=== PATIENT | male | born 1970 | race Caucasian/White ===

== ENCOUNTER 2016-09-08 13:17 | Emergency (ER) | payer MEDICAID ==
[2016-09-08] MEDS ORDERED: ONDANSETRON DISINTEGRATING 4 MG TAB ONE (14:19)
[2016-09-08] MEDS ORDERED: ONDANSETRON DISINTEGRATING 4 MG TAB PO ONE (14:28)
[2016-09-08 14:32] LABS: % IMMATURE GRANULYOCYTES 0.5 % (0.0-1.1); ABSOLUTE IMMATURE GRANULOCYTES 0.05 10^3/uL (0.00-0.10); ADD DIFF? NO; ADD MORPH? NO; ADD SCAN? NO; ATYPICAL LYMPHOCYTE FLAG 20 (0-99); FRAGMENT RBC FLAG 0 (0-99); HEMATOCRIT 41.4 % (40.0-51.0); HEMOGLOBIN 14.6 g/dL (13.7-17.5); LEFT SHIFT FLG 0 (0-99); LIPEMIA HEMOLYSIS FLAG 90 (0-99); MEAN CELL HEMOGLOBIN 31.7 pg (27.9-34.1); MEAN CELL HEMOGLOBIN CONCENTR. 35.3 g/dL (32.4-36.7); MEAN PLATELET VOLUME 9.1 fL (8.7-11.7); PLATELET CLUMPS FLAG 0 (0-99); PLATELET COUNT 343 10^3/uL (150-400); RED CELL DISTRIBUTION WIDTH 13.1 % (11.5-15.2)
[2016-09-08 14:38] LABS: ANION GAP 14 mEq/L (8-16); CALCIUM 9.6 mg/dL (8.5-10.4); CARBON DIOXIDE 23 mEq/l (22-31); CHLORIDE 102 mEq/L (97-110); CREATININE 0.6 mg/dL (0.7-1.3); GLOMERULAR FILTRATION RATE > 60; GLUCOSE 176 mg/dL (70-100); POTASSIUM 4.3 mEq/L (3.5-5.2); SODIUM 139 mEq/L (134-144)
[2016-09-08 14:52] LABS: COLOR PALE YELLOW; LEUKOCYTE ESTERASE,URINE NEGATIVE (NEGATIVE); NITRITE,URINE NEGATIVE (NEGATIVE)
[2016-09-08] MEDS ORDERED: ONDANSETRON 4 MG/2 ML VIAL ONE (15:01)
[2016-09-08] MEDS ORDERED: KETOROLAC 30 MG/1 ML SDV ONE (16:06)
--- NOTE | 2016-09-08 16:37 | DX ---
PA and Lateral Chest September 08, 2016 History: Cough in a 46-year-old male with a history of pneumonia. Findings: The heart and mediastinal contours are normal. Pulmonary vascularity is normal. There is c entral peribronchial thickening. Left-sided alveolar opacities noted on the previous chest x-ray March 02, 2016 have resolved. There are no alveolar opacities seen to suggest pneumonia. Impression: Findings consistent with airways disease are noted with no superimposed pneumonia identi fied.
--- NOTE | 2016-09-08 16:48 | EDPHY ---
Mental Health General Previous Psychiatric History: previous inpatient psychiatric admission, depression, anxiety Smoking Status: Former smoker Time Patient Placed on M1 Hold: 12:30 Time Medically Cleared for Psychiatric Evaluation: 16:00 Time of Transfer of Care: 18:[address]:: Mellisa Course: patient remained stable over course of my shift, no additional interventions, awaiting acceptance to inpatient bed Narrative: CHIEF COMPLAINT: M1 hold, suicidal ideation HISTORY OF PRESENT ILLNESS: 46-year-old male presents emergency department on an M1 hold for suicidal ideations. Patient reports he attempted to overdose on insulin last night and will do it again if he does not get help. Patient has already had a mental health evaluation from [facility] and he is here for a medical clearance. Patient reports he was recently treated at [facility] for a pneumonia, finished his antibiotics over 1 month ago. He reports a mild cough that started 1 week ago, he denies fevers, chills. Patient reports intermittent suicidal thoughts for the past several months with thoughts about overdosing on his insulin. He has a history of depression and anxiety. [facility] is [facility], recently had a break-up of a relationship. He denies drug use, denies auditory or visual hallucinations and denies homicidal ideations. REVIEW OF SYSTEMS: A comprehensive 10 point review of systems is otherwise negative aside from elements mentioned in the history of present illness. Physical Exam Gen: Alert and Oriented, NAD HEENT: PERRL, moist mucous membranes NECK: no meningismus CV: regular rate and regular rhythm PULM: Rhonchi right lower lobe ABDOMEN: soft, non tender to palpation, BS present BACK: No CVA tenderness NEURO: Neurologically grossly intact EXTREMITIES: normal appearing SKIN: no rash or break in skin on exposed skin PSYCH: Reports suicidal ideations, denies homicidal ideations, auditory and visual hallucinations. (Christina Aviles) 700: The patient is signed out to me at change of shift by Dr. Sellers. Patient is stable at this time. 745: The patient is given his typical daytime medications: Protonix 40 mg orally, clonidine 0.2 mg orally and Adderall 20 mg 1200: Patient was given is "noon" medications including Adderall and clonidine. 1500: Patient is signed out to Dr. Pak at change of shift. (Terrie Rodriguez) Medical Decision Making: Patient with normal room air oxygen saturations, he is afebrile, due to the rhonchi in his right lower lobe and recent cough a chest x-ray was obtained showing no evidence of pneumonia. Chest x-ray independently reviewed by me- Impression: Findings consistent with airways disease are noted with no superimposed pneumonia identified. Dictated By: Puma Delgado MD 6pm- report passed on to Dr. Pak at the end of my shift pending placement. ( Christina Aviles) 10:45pm--blood sugar elevated. Insulin NPH 15u SQ and Insulin Reg 4u SQ given. Pt did not take his usual insulin this evening. I ordered bid dosing of his usual insulin: NPH 10u SQ bid. 11:00 p.m.-signed over to Dr. Sellers at shift change. (Louisa Pak) 6:50 a.m.- The patient has been stable during my shift. He did have several glucose is checked, initially 316, for this he was given 4 units of regular insulin repeat blood sugars have been 165 and 139. He is currently awaiting placement. (Jaycee Sellers) - Objective Vital Signs: Initial Vital Signs Temperature (C) 36.6 C 09/08/16 13:36 Heart Rate 94 09/08/16 13:36 Respiratory Rate 14 09/08/16 13:36 Blood Pressure 150/94 H 09/08/16 13:36 O2 Sat (%) 92 09/08/16 13:36 O2 Delivery Mode Room Air Allergies/Adverse Reactions: Sulfa (Sulfonamide Antibiotics) [Sulfa(Sulfonamide Antibiotics)] Allergy (Severe , Verified 09/08/16 13:35) Anaphylaxis Home Medications: Medication Instructions Recorded Ibuprofen [Motrin (*)] 800 mg PO DAILY PRN 03/02/16 Zolpidem Tartrate [Ambien 10 mg] 10 mg PO HS PRN 03/02/16 Acetaminophen [Tylenol 325mg (*)] 650 mg PO Q4 PRN #0 tab 03/07/16 LORazepam [Ativan (*)] 2 mg PO DAILY PRN #30 tab 03/07/16 NPH, HUMAN INSULIN ISOPHANE 10 unit SQ BID #60 dose 03/07/16 [NOVOLIN N] Pantoprazole Sodium [Protonix 40mg 40 mg PO BID #60 tab 03/07/16 (*)] clonIDINE [Catapres (*)] 0.2 mg PO TID #90 tab 03/07/16 Amphet Asp and D/Amphet [Adderall 20 mg PO BID 09/08/16 20 mg (*)] oxyCODONE IR [Oxycodone Ir (*)] 20 mg PO Q8H PRN 09/08/16 Medications Given: Discontinued Medications Clonidine (Catapres) 0.2 mg PO EDNOW ONE Stop: 09/08/16 22:19 Last Admin: 09/08/16 22:25 Dose: 0.2 mg Clonidine (Catapres) 0.2 mg PO EDNOW ONE Stop: 09/09/16 07:50 Last Admin: 09/09/16 08:10 Dose: 0.2 mg Clonidine (Catapres) 0.2 mg PO EDNOW ONE Stop: 09/09/16 12:11 Last Admin: 09/09/16 12:43 Dose: 0.2 mg Guaifenesin/Dextromethorphan (Robitussin Dm Oral Liquid) 10 ml PO EDNOW ONE Stop: 09/08/16 20:02 Last Admin: 09/08/16 20:15 Dose: 10 ml Ibuprofen (Motrin) 600 mg PO EDNOW ONE Stop: 09/09/16 06:17 Last Admin: 09/09/16 06:21 Dose: 600 mg Insulin Human NPH (Humulin N Syringe) 15 units SC EDNOW ONE Stop: 09/08/16 22:44 Last Admin: 09/08/16 23:08 Dose: 15 units Insulin Human Regular (Humulin R) 4 unit SC EDNOW ONE Stop: 09/08/16 22:45 Last Admin: 09/08/16 23:08 Dose: 4 units Insulin Human Regular (Humulin R) 4 unit SC EDNOW ONE Stop: 09/09/16 00:46 Last Admin: 09/09/16 00:56 Dose: 4 units Ipratropium Hope (Atrovent Neb) 0.5 mg IH EDNOW ONE Stop: 09/08/16 22:13 Last Admin: 09/08/16 22:24 Dose: 0.5 mg Ipratropium Hope (Atrovent Neb) 0.5 mg IH EDNOW ONE Stop: 09/09/16 12:11 Last Admin: 09/09/16 12:26 Dose: 0.5 mg Ketorolac Tromethamine (Toradol) 15 mg IVP EDNOW ONE Stop: 09/08/16 17:03 Last Admin: 09/08/16 17:03 Dose: 15 mg Lorazepam (Ativan) 2 mg PO EDNOW ONE Stop: 09/08/16 18:43 Last Admin: 09/08/16 18:57 Dose: 2 mg Ondansetron HCl (Zofran Odt) 4 mg PO EDNOW ONE Stop: 09/08/16 14:29 Last Admin: 09/08/16 14:29 Dose: 4 mg Oxycodone HCl (Oxycodone Ir) 20 mg PO EDNOW ONE Stop: 09/08/16 21:26 Last Admin: 09/08/16 21:33 Dose: 20 mg Oxycodone HCl (Oxycodone Ir) 20 mg PO EDNOW ONE Stop: 09/09/16 03:15 Last Admin: 09/09/16 03:28 Dose: 20 mg Pantoprazole Sodium (Protonix) 40 mg PO EDNOW ONE Stop: 09/09/16 07:52 Last Admin: 09/09/16 08:10 Dose: 40 mg Laboratory Results: Laboratory Results 09/08/16 13:36 09/08/16 13:36 09/09/16 09/09/16 12:06 06:39 POC Glucose 108 H mg/dL 139 H mg/dL (70-100) (70-100) Point of Care Results: 09/09/16 09/09/16 06:39 12:06 POC Glucose 139 H 108 H Departure - Departure Disposition: Acute Care Hospital [facility] Clinical Impression: Suicidal ideation Condition: Fair Referrals: NONE *PRIMARY CARE P,. [Primary Care Provider] - As per Instructions
[2016-09-08] MEDS ORDERED: KETOROLAC 15 MG/1 ML SDV IVP ONE (17:02)
[2016-09-08] MEDS ORDERED: LORazepam 1 MG TAB ONE (18:36)
[2016-09-08] MEDS ORDERED: LORazepam 1 MG TAB PO ONE (18:42)
[2016-09-08] MEDS ORDERED: GUAIFENESIN/DM 10 ML UDCUP PO ONE (20:01)
[2016-09-08] MEDS ORDERED: oxyCODONE IR 5 MG TAB PO ONE (21:25)
[2016-09-08] MEDS ORDERED: IPRATROPIUM BROMIDE 0.5 MG/2.5 ML DEYVIAL IH ONE (22:12)
[2016-09-08] MEDS ORDERED: INSULIN NPH HUMAN 100 UNITS/ML SYRINGE SC ONE (22:43)
[2016-09-08] MEDS ORDERED: INSULIN REGULAR HUMAN 100 UNIT/ML SC ONE ×2 (22:44)
[2016-09-09] MEDS ORDERED: INSULIN REGULAR HUMAN 100 UNIT/ML SC ONE ×2 (00:45→18:00)
[2016-09-09] MEDS ORDERED: oxyCODONE IR 5 MG TAB PO ONE ×2 (03:14→17:38)
[2016-09-09] MEDS ORDERED: oxyCODONE IR 5 MG TAB ONE ×2 (03:25)
[2016-09-09] MEDS ORDERED: IBUPROFEN 600 MG TAB PO ONE (06:16)
[2016-09-09] MEDS ORDERED: PANTOPRAZOLE SODIUM 40 MG TAB PO ONE (07:51)
[2016-09-09] MEDS: INSULIN NPH HUMAN 100 UNITS/ML SYRINGE SC SCH ×2 (08:10→18:30)
[2016-09-09] MEDS ORDERED: ADDERALL 20 MG TAB PO SCH ×2 (09:00→12:30)
[2016-09-09] MEDS ORDERED: IPRATROPIUM BROMIDE 0.5 MG/2.5 ML DEYVIAL IH ONE (12:10)
[2016-09-09] MEDS ORDERED: INSULIN NPH HUMAN 100 UNITS/ML SYRINGE SC SCH (21:00)
[2016-09-09] MEDS ORDERED: LORazepam 1 MG TAB PO ONE (22:05)
[2016-09-09] MEDS ORDERED: INSULIN NPH HUMAN 100 UNITS/ML SYRINGE SC ONE ×2 (22:36→22:45)
[2016-09-10] MEDS ORDERED: PANTOPRAZOLE SODIUM 40 MG TAB PO ONE (02:33)
[2016-09-10] MEDS ORDERED: FAMOTIDINE 20 MG TAB ONE (02:37)
[2016-09-10] MEDS ORDERED: ACETAMINOPHEN 500 MG TAB ONE (02:44)
[2016-09-10] MEDS ORDERED: ACETAMINOPHEN 500 MG TAB PO ONE (02:52)
[2016-09-10] MEDS ORDERED: FAMOTIDINE 20 MG TAB PO ONE (02:52)
[2016-09-10 02:56] VITALS: BP 119/73; PULSE 115; RESP 20; TEMP 99.7; O2SAT 91
== END 2016-09-10 02:55 | disposition short-term general hospital (02) ==
LOC: EDUNIT#
DX: R45.851 Suicidal ideations (principal); E11.9 Type 2 diabetes mellitus without complications; Z87.891 Personal history of nicotine dependence; Z59.0 Homelessness
CPT/HCPCS: 80305; 82947-QW; 96374; J1815; J1885; J2405

== ENCOUNTER 2016-10-04 15:33 | Emergency (ER) | payer MEDICAID ==
--- NOTE | 2016-10-04 15:49 | EDPHY ---
H & P Stated Complaint: Difficulty breathing hx PNA HPI/ROS: CHIEF COMPLAINT: Cough, nausea. HISTORY OF PRESENT ILLNESS: The patient is a 46-year-old male with a history of diabetes and who presents with non-productive cough and nausea for the past few days. He reports having had pneumonia all of last year and this feels similar. He was hospitalized September of 2015 and diagnosed with pneumonia. He was hospitalized again with lung abscess/empyema and treated for MRSA. He underwent a VATS procedure for drainage of the lung abscess. His current illness began with pleuritic chest pain, dry cough, racing heart rate, and nausea. He is not currently experiencing pleuritic chest pain. He described tussive emesis. He feels slightly short of breath. He also reports that he has been having difficulty keeping his blood sugar regulated. He denies diarrhea , chills, abdominal pain, sore throat, or other complaints. He did not have a flu shot this year. REVIEW OF SYSTEMS: A ten point review of systems was performed and is negative with the exception of the items mentioned in the HPI. Source: Patient Exam Limitations: No limitations - Personal History Current Tetanus/Diphtheria Vaccine: Yes Current Tetanus Diphtheria and Acellular Pertussis (TDAP): Yes Tetanus Vaccine Date: 2013 - Medical/Surgical History Hx Asthma: No Hx Chronic Respiratory Disease: No Hx Diabetes: Yes Hx Cardiac Disease: No Hx Renal Disease: No Hx Cirrhosis: No Hx Alcoholism: No Hx HIV/AIDS: No Hx Splenectomy or Spleen Trauma: No Other PMH: 1. DIABETES. 2. KIDNEY STONES. 3. GERD. 4. PNA WITH MRSA EMPYEMA. 5. 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 Lives with a roommate. - Physical Exam Exam: General Appearance: Alert. Vital signs reviewed. BP 154/107. HR 110. Pulse ox 94% on room air. Eyes: Pupils equal and round, no conjunctival injection, no discharge. Anicteric. ENT, Mouth: Mucous membranes are moist, no oropharyngeal erythema or edema. Neck: No lymphadenopathy, supple. Respiratory: Faint expiratory wheezes in all lung field. No rales or rhonchi. Good air exchange. No tachypnea. Cardiovascular: Tachycardic. Thorax: No crepitus. Gastrointestinal: Abdomen is soft and nontender, no masses or organomegaly, bowel sounds normal. Skin: Warm and dry, no rashes on exposed skin, normal color. Back: Nontender to palpation over the thoracolumbar spine. No CVAT. Extremities: No lower extremity edema, no calf tenderness or swelling. Neurological: Alert and oriented. Moving all four extremities easily and equally. Psychiatric: Normal affect. Constitutional: Initial Vital Signs Temperature (C) 36.9 C 10/04/16 15:38 Heart Rate 110 H 10/04/16 15:38 Respiratory Rate 18 10/04/16 15:38 Blood Pressure 154/107 H 10/04/16 15:38 O2 Sat (%) 94 10/04/16 15:38 O2 Delivery Mode Room Air Allergies/Adverse Reactions: Sulfa (Sulfonamide Antibiotics) [Sulfa(Sulfonamide Antibiotics)] Allergy (Severe , Verified 10/04/16 15:38) Anaphylaxis Home Medications: Medication Instructions Recorded Ibuprofen [Motrin (*)] 800 mg PO DAILY PRN 03/02/16 Zolpidem Tartrate [Ambien 10 mg] 10 mg PO HS PRN 03/02/16 Acetaminophen [Tylenol 325mg (*)] 650 mg PO Q4 PRN #0 tab 03/07/16 LORazepam [Ativan (*)] 2 mg PO DAILY PRN #30 tab 03/07/16 NPH, HUMAN INSULIN ISOPHANE 10 unit SQ BID #60 dose 03/07/16 [NOVOLIN N] Pantoprazole Sodium [Protonix 40mg 40 mg PO BID #60 tab 03/07/16 (*)] clonIDINE [Catapres (*)] 0.2 mg PO TID #90 tab 03/07/16 Amphet Asp and D/Amphet [Adderall 20 mg PO BID 09/08/16 20 mg (*)] oxyCODONE IR [Oxycodone Ir (*)] 20 mg PO Q8H PRN 09/08/16 oxyCODONE/APAP 5/325 [Percocet 1 - 2 tab PO Q4H PRN #20 tab 10/04/16 5/325 (RX)] Medical Decision Making - Diagnostics Imaging: Chest x-ray was obtained. I viewed the images myself on the PACS system. The radiologist interpretation per Dr. Rios, is: chronic or recurrent airways disease. No pneumonia. I discussed the x-ray findings with the patient. ED Course/Re-evaluation: An IV was established and labs ordered. Chest x-ray ordered. He does not meet criteria for sepsis. His tachycardia resolved while he was in the emergency department. I do not suspect pulmonary embolism. He is not experiencing pleuritic chest pain. On reexamination he continues with good air exchange and an occasional expiratory wheeze. He has inhaled medications that he uses regularly and will continue to do so. 1806: Reassessed patient. We discussed the results of chest x-ray and laboratory work. He is reassured that we do not see evidence of pneumonia or lung abscess. His main concern is for cough, which is disrupting his sleep. He is not febrile or hypoxic. I answered all of his questions. He will go home with Percocet to combine with Robitussin for the cough (he has used this in the past for cough, successfully). He was given return precautions prior to discharge. He will follow up with his primary care physician. He is noted to be hypertensive while in the emergency department. He will have his blood pressure checked by his primary care doctor. Differential Diagnosis: Shortness of breath including but not limited to pulmonary infectious process, COPD, asthma, pulmonary embolus and congestive heart failure. - Data Points Laboratory Results: Laboratory Results 10/04/16 16:31 10/04/16 16:31 Medications Given: Discontinued Medications Hydromorphone HCl (Dilaudid) 0.5 mg IVP EDNOW ONE Stop: 10/04/16 16:51 Last Admin: 10/04/16 16:58 Dose: 0.5 mg Ondansetron HCl (Zofran) 4 mg IVP EDNOW ONE Stop: 10/04/16 16:51 Last Admin: 10/04/16 16:58 Dose: 4 mg Departure - Departure Disposition: Home, Routine, Self-Care Clinical Impression: Viral syndrome Condition: Good Instructions: Oxycodone/Acetaminophen (By mouth), Viral Syndrome (ED) Additional Instructions: Drink plenty of fluids and be sure to get rest. Take Percocet as prescribed when needed for pain and cough. Use over the counter Robitussin for cough. Follow up with your primary care provider in the next 1-2 days for reevaluation. Return to the emergency department if you experience serious worsening of condition. Referrals: [facility] [Provider Group] - As per Instructions Prescriptions: oxyCODONE/APAP 5/325 [Percocet 5/325 (RX)] 1 - 2 tab PO Q4H PRN #20 tab PRN Reason: Pain, Severe Report Scribed for: Janet Smith Report Scribed by: Albert Galvin Date of Report: 10/04/16 Time of Report: 16:04 Physician Review and Approval Statement: 10/04/16 15:49 Portions of this note were transcribed by the medical office assistant. I, Dr. Janet Smith, personally performed the history, physical exam, and medical decision- making; and confirmed the accuracy of the information in the transcribed note.
[2016-10-04] MEDS ORDERED: HYDROmorphONE/DILAUDID 1 MG/ML SYR ONE (16:47)
[2016-10-04] MEDS ORDERED: ONDANSETRON 4 MG/2 ML VIAL ONE (16:48)
[2016-10-04] MEDS ORDERED: ONDANSETRON 4 MG/2 ML VIAL IVP ONE (16:50)
[2016-10-04] MEDS ORDERED: HYDROmorphONE/DILAUDID 1 MG/ML SYR IVP ONE (16:50)
[2016-10-04 16:57] LABS: % IMMATURE GRANULYOCYTES 0.1 % (0.0-1.1); ABSOLUTE IMMATURE GRANULOCYTES 0.01 10^3/uL (0.00-0.10); ADD DIFF? NO; ADD MORPH? NO; ADD SCAN? NO; ATYPICAL LYMPHOCYTE FLAG 20 (0-99); FRAGMENT RBC FLAG 0 (0-99); HEMATOCRIT 40.9 % (40.0-51.0); HEMOGLOBIN 14.3 g/dL (13.7-17.5); LEFT SHIFT FLG 0 (0-99); LIPEMIA HEMOLYSIS FLAG 90 (0-99); MEAN CELL HEMOGLOBIN 31.4 pg (27.9-34.1); MEAN CELL VOLUME 89.7 fL (81.5-99.8); MEAN PLATELET VOLUME 8.9 fL (8.7-11.7); PLATELET CLUMPS FLAG 0 (0-99); PLATELET COUNT 292 10^3/uL (150-400); RED BLOOD CELL COUNT 4.56 10^6/uL (4.40-6.38); RED CELL DISTRIBUTION WIDTH 12.8 % (11.5-15.2)
[2016-10-04 17:16] LABS: ANION GAP 12 mEq/L (8-16); CALCIUM 9.1 mg/dL (8.5-10.4); CARBON DIOXIDE 32 mEq/l (22-31); CHLORIDE 95 mEq/L (97-110); CREATININE 0.9 mg/dL (0.7-1.3); GLOMERULAR FILTRATION RATE > 60; GLUCOSE 188 mg/dL (70-100); SODIUM 139 mEq/L (134-144)
--- NOTE | 2016-10-04 17:20 | DX ---
Chest, PA and Lateral History: Dyspnea Comparison: September 08, 2016 Findings: There is chronic or recurrent bronchial wall thickening. There is no focal infiltrate, cons olidation or pleural effusion. There is no mass or adenopathy. There is no pneumothorax or pneumomedi astinum. There is stable mild compressions in the low thoracic spine. No new compressions have develo ped. Heart size and pulmonary vascularity are normal. Impression: Chronic or recurrent airways disease. No pneumonia.
[2016-10-04 18:40] VITALS: BP 164/101; PULSE 78; RESP 16; TEMP 98.8; O2SAT 94
== END 2016-10-04 18:40 | disposition home or self-care (01) ==
DX: B34.9 Viral infection, unspecified (principal); E11.9 Type 2 diabetes mellitus without complications; Z87.891 Personal history of nicotine dependence; Z79.4 Long term (current) use of insulin
CPT/HCPCS: 96374; J1170; J2405

== ENCOUNTER 2016-10-05 15:44 | Emergency (ER) | payer MEDICAID ==
--- NOTE | 2016-10-05 16:12 | EDPHY ---
H & P Stated Complaint: pneumonia r/o Time Seen by Provider: 10/05/16 15:53 HPI/ROS: CHIEF COMPLAINT: low oxygen saturations HISTORY OF PRESENT ILLNESS: 46-year-old male presents to the emergency department by ambulance from his psychiatrist office after his triage nurse got a oxygen saturation in the high 80s. Patient has a history recurrent pneumonias , MRSA empyema with a VATS procedure last year. He was seen yesterday in the emergency department for a cough that he has had for 2 weeks. This showed no sign of pneumonia. Patient reports he has had a cough for the past 2 weeks that is not getting worse. He denies fevers. No nasal congestion, no sore throat or ear pain. Patient denies chest pain or shortness of breath. On arrival by EMS he has oxygen saturations of 90% on room air, he is hypertensive with a blood pressure of 170/110 with a heart rate of 107. Patient reports feeling very anxious. He states this triage nurse scared him and he is worried about his oxygen saturations. REVIEW OF SYSTEMS: A comprehensive 10 point review of systems is otherwise negative aside from elements mentioned in the history of present illness. Source: Patient, EMS Exam Limitations: No limitations - Personal History Current Tetanus/Diphtheria Vaccine: Yes Current Tetanus Diphtheria and Acellular Pertussis (TDAP): Yes Tetanus Vaccine Date: 2013 - Medical/Surgical History Hx Asthma: No Hx Chronic Respiratory Disease: No Hx Diabetes: Yes Hx Cardiac Disease: No Hx Renal Disease: No Hx Cirrhosis: No Hx Alcoholism: No Hx HIV/AIDS: No Hx Splenectomy or Spleen Trauma: No Other PMH: PMH: DIABETES,KIDNEY STONES, GERD, PNA WITH MRSA, EMPYEMA - Social History Smoking Status: Former smoker - Physical Exam Exam: Physical Exam Gen: Alert and Oriented, anxious HEENT: PERRL, moist mucous membranes, right TM normal, left TM with scarring, no erythema, bilateral nasal turbinates normal NECK: no meningismus CV: Tachycardic rate and regular rhythm PULM: CTAB, no wheezes ABDOMEN: soft, non tender to palpation, BS present BACK: No CVA tenderness NEURO: Neurologically grossly intact EXTREMITIES: normal appearing SKIN: no rash or break in skin on exposed skin PSYCH: answers questions appropriately. Constitutional: Initial Vital Signs Temperature (C) 37.1 C 10/05/16 15:53 Heart Rate 109 H 10/05/16 15:53 Respiratory Rate 18 10/05/16 15:53 Blood Pressure 179/119 H 10/05/16 15:53 O2 Sat (%) 90 L 10/05/16 15:53 O2 Delivery Mode Room Air O2 (L/minute) 2 Allergies/Adverse Reactions: Sulfa (Sulfonamide Antibiotics) [Sulfa(Sulfonamide Antibiotics)] Allergy (Severe , Verified 10/04/16 15:38) Anaphylaxis Home Medications: Medication Instructions Recorded Ibuprofen [Motrin (*)] 800 mg PO DAILY PRN 03/02/16 Zolpidem Tartrate [Ambien 10 mg] 10 mg PO HS PRN 03/02/16 Acetaminophen [Tylenol 325mg (*)] 650 mg PO Q4 PRN #0 tab 03/07/16 LORazepam [Ativan (*)] 2 mg PO DAILY PRN #30 tab 03/07/16 NPH, HUMAN INSULIN ISOPHANE 10 unit SQ BID #60 dose 03/07/16 [NOVOLIN N] Pantoprazole Sodium [Protonix 40mg 40 mg PO BID #60 tab 03/07/16 (*)] clonIDINE [Catapres (*)] 0.2 mg PO TID #90 tab 03/07/16 Amphet Asp and D/Amphet [Adderall 20 mg PO BID 09/08/16 20 mg (*)] oxyCODONE IR [Oxycodone Ir (*)] 20 mg PO Q8H PRN 09/08/16 oxyCODONE/APAP 5/325 [Percocet 1 - 2 tab PO Q4H PRN #20 tab 10/04/16 5/325 (RX)] Medical Decision Making - Diagnostics Imaging: Chest x-ray independently reviewed by me- Impression: Left basilar atelectasis versus early pneumonia. Dictated By: Maciej Hudson MD ED Course/Re-evaluation: 46-year-old male presents by ambulance for low oxygen saturation reading at his psychiatrist's office. On arrival he is nontoxic appearing, room air oxygen saturations between 90 and 94%, lungs are clear to auscultation. Chest x-ray obtained which is unchanged from yesterday, no evidence of pneumonia. Patient is afebrile. CBC is unremarkable, chemistry panel normal, D-dimer negative. Patient will be discharged home. I have recommended saline nasal rinses, steam showers, increased fluids, rest. He agrees to follow up with his primary care doctor at [place] on Saturday for re-evaluation. Patient is aware of his elevated blood pressure readings in the emergency department. He has no chest pain, no headaches or blurred vision, he was given 1 mg of lorazepam in the ER orally for his anxiety. This improved his blood pressure. He is given strict return precautions for difficulty breathing, chest pain, any other questions or concerns. Differential Diagnosis: Diagnosis considered but not limited to pneumonia, bronchitis, URI, pulmonary embolism - Data Points Laboratory Results: Laboratory Results 10/05/16 15:46 10/05/16 15:46 10/05/16 15:46 WBC 8.25 10^3/uL (3.80-9.50) RBC 4.49 10^6/uL (4.40-6.38) Hgb 14.0 g/dL (13.7-17.5) Hct 41.0 % (40.0-51.0) MCV 91.3 fL (81.5-99.8) MCH 31.2 pg (27.9-34.1) MCHC 34.1 g/dL (32.4-36.7) RDW 13.2 % (11.5-15.2) Plt Count 305 10^3/uL (150-400) MPV 9.1 fL (8.7-11.7) Neut % (Auto) 45.5 % (39.3-74.2) Lymph % (Auto) 41.8 % (15.0-45.0) Allen % (Auto) 7.2 % (4.5-13.0) Eos % (Auto) 4.7 % (0.6-7.6) Baso % (Auto) 0.7 % (0.3-1.7) Nucleat RBC Rel Count 0.0 % (0.0-0.2) Absolute Neuts (auto) 3.75 10^3/uL (1.70-6.50) Absolute Lymphs (auto) 3.45 H 10^3/uL (1.00-3.00) Absolute Monos (auto) 0.59 10^3/uL (0.30-0.80) Absolute Eos (auto) 0.39 10^3/uL (0.03-0.40) Absolute Basos (auto) 0.06 10^3/uL (0.02-0.10) Absolute Nucleated RBC 0.00 10^3/uL (0-0.01) Immature Gran % 0.1 % (0.0-1.1) Immature Gran # 0.01 10^3/uL (0.00-0.10) D-Dimer < 0.27 ug/mLFEU (0.00-0.50) Sodium 140 mEq/L (134-144) Potassium 3.7 mEq/L (3.5-5.2) Chloride 92 L mEq/L (97-110) Carbon Dioxide 36 H mEq/l (22-31) Anion Gap 12 mEq/L (8-16) BUN 16 mg/dL (7-23) Creatinine 0.7 mg/dL (0.7-1.3) Estimated GFR > 60 Glucose 156 H mg/dL (70-100) Calcium 9.2 mg/dL (8.5-10.4) Medications Given: Discontinued Medications Lorazepam (Ativan) 1 mg PO EDNOW ONE Stop: 10/05/16 17:30 Last Admin: 10/05/16 17:37 Dose: 1 mg Departure - Departure Disposition: Home, Routine, Self-Care Clinical Impression: Cough, Elevated blood pressure reading, Anxiety Condition: Good Instructions: Acute Cough (ED), Anxiety (ED) Additional Instructions: Tylenol and or ibuprofen as needed for sore throat. Saline nasal rinses, hot steam showers, drink plenty of fluids, rest. Follow-up with your primary care doctor on Saturday for re-evaluation. Continue your medications as prescribed. Return to the emergency department for any worsening symptoms, shortness of breath, chest pain, any new questions or concerns. Stop smoking Referrals: [facility] [Outside] - As per Instructions
--- NOTE | 2016-10-05 17:04 | DX ---
PA and Lateral Chest Indication: PAIN Evaluate for pneumonia. Comparison: Two-view chest dated October 04, 2016 Findings: Linear opacities in the left lower lobe have not significantly changed since one day prior. Right lung is clear. Heart size normal. No pneumothorax, edema, or effusion. Impression: Left basilar atelectasis versus early pneumonia.
[2016-10-05 17:22] LABS: % IMMATURE GRANULYOCYTES 0.1 % (0.0-1.1); ABSOLUTE IMMATURE GRANULOCYTES 0.01 10^3/uL (0.00-0.10); ADD DIFF? NO; ADD MORPH? NO; ADD SCAN? NO; ATYPICAL LYMPHOCYTE FLAG 20 (0-99); FRAGMENT RBC FLAG 0 (0-99); LEFT SHIFT FLG 0 (0-99); LIPEMIA HEMOLYSIS FLAG 90 (0-99); MEAN CELL HEMOGLOBIN 31.2 pg (27.9-34.1); MEAN CELL HEMOGLOBIN CONCENTR. 34.1 g/dL (32.4-36.7); MEAN CELL VOLUME 91.3 fL (81.5-99.8); MEAN PLATELET VOLUME 9.1 fL (8.7-11.7); PLATELET CLUMPS FLAG 0 (0-99); PLATELET COUNT 305 10^3/uL (150-400); RED BLOOD CELL COUNT 4.49 10^6/uL (4.40-6.38); RED CELL DISTRIBUTION WIDTH 13.2 % (11.5-15.2)
[2016-10-05 17:29] LABS: ANION GAP 12 mEq/L (8-16); CALCIUM 9.2 mg/dL (8.5-10.4); CARBON DIOXIDE 36 mEq/l (22-31); CHLORIDE 92 mEq/L (97-110); CREATININE 0.7 mg/dL (0.7-1.3); GLOMERULAR FILTRATION RATE > 60; GLUCOSE 156 mg/dL (70-100); POTASSIUM 3.7 mEq/L (3.5-5.2); SODIUM 140 mEq/L (134-144)
[2016-10-05] MEDS ORDERED: LORazepam 1 MG TAB PO ONE (17:29)
[2016-10-05 18:17] VITALS: BP 170/108; PULSE 104; RESP 20; TEMP 98.2; O2SAT 93
== END 2016-10-05 18:16 | disposition home or self-care (01) ==
LOC: EDUNIT#
DX: R05 Cough (principal); F41.9 Anxiety disorder, unspecified; E11.9 Type 2 diabetes mellitus without complications; R03.0 Elevated blood-pressure reading, without diagnosis of hypertension; Z87.891 Personal history of nicotine dependence; Z79.4 Long term (current) use of insulin

== ENCOUNTER 2016-10-09 12:14 | Inpatient (IN) | payer MEDICAID ==
--- NOTE | 2016-10-09 12:38 | EDPHY ---
H & P Time Seen by Provider: 10/09/16 12:29 HPI/ROS: CHIEF COMPLAINT: Cough, difficulty breathing. HISTORY OF PRESENT ILLNESS: The patient is a 46-year-old male who presents with cough and shortness of breath. He was seen in the ER 4 and 5 days ago for similar symptoms and diagnosed with a generalized viral syndrome and cough. He had a normal chest x-ray 5 days ago. He reports that since that time his breathing has worsened and he has been coughing non-stop. Cough is productive. He has chest pain from the coughing. He admits associated myalgia. He denies fever but does have chills. No palpitations, vomiting, diarrhea, urinary complaints, headache, lightheadedness. REVIEW OF SYSTEMS: Aside from elements discussed in the HPI, a comprehensive 10-point review of systems was reviewed and is negative. PAST MEDICAL HISTORY: Diabetes, pneumonia, empyema, kidney stones. SOCIAL HISTORY: Former smoker. VITAL SIGNS: Reviewed by me GENERAL: Well-developed, well-nourished, resting comfortably in no respiratory distress. HEENT: Atraumatic. Eyes: No icterus, no injection. Mouth: moist mucous membranes. No erythema or lesions. Neck: supple with no adenopathy. LUNGS: Pleural rub on right. Coarse breath sounds throughout. Wheezy cough. No rhonchi or rales. CARDIAC: Regular rate and rhythm, no rubs, murmurs or gallops. ABDOMEN: Soft, nontender, nondistended, bowel sounds normal. BACK: No CVA tenderness. EXTREMITIES: No trauma. No edema. Range of motion is normal throughout. NEURO: Alert and oriented, grossly nonfocal. SKIN: Warm and dry, no rash. PSYCHIATRIC: Normal mentation, no agitation. Portions of this note were transcribed by a pediatric medical assistant. I personally performed a history, physical exam, medical decision making, and confirmed accuracy of information the transcribed note. Smoking Status: Former smoker Constitutional: Initial Vital Signs Temperature (C) 36.9 C 10/09/16 12:17 Heart Rate 110 H 10/09/16 12:17 Respiratory Rate 26 H 10/09/16 12:17 Blood Pressure 153/96 H 10/09/16 12:17 O2 Sat (%) 94 10/09/16 12:17 O2 Delivery Mode Room Air Allergies/Adverse Reactions: Sulfa (Sulfonamide Antibiotics) [Sulfa(Sulfonamide Antibiotics)] Allergy (Severe , Verified 10/09/16 12:14) Anaphylaxis Home Medications: Medication Instructions Recorded Ibuprofen [Motrin (*)] 800 mg PO BID PRN 03/02/16 Zolpidem Tartrate [Ambien 10 mg] 10 mg PO HS PRN 03/02/16 LORazepam [Ativan (*)] 2 mg PO DAILY PRN #30 tab 03/07/16 clonIDINE [Catapres (*)] 0.2 mg PO TID #90 tab 03/07/16 Amphet Asp and D/Amphet [Adderall 20 mg PO BID@08,12 09/08/16 20 mg (*)] oxyCODONE IR [Oxycodone Ir (*)] 20 mg PO BID PRN 09/08/16 DULoxetine [Cymbalta 30 MG (*)] 30 mg PO DAILY 10/09/16 NPH, HUMAN INSULIN ISOPHANE 0 unit SQ BID 10/09/16 [NOVOLIN N] Omeprazole 40 mg PO BID 10/09/16 Medical Decision Making - Diagnostics Imaging: X-ray chest was obtained. I viewed the images myself on the PACS system. My interpretation of the images is: right-sided pneumonia. The radiologist interpretation is: Right middle lobe pneumonia has developed over 3 days. I discussed the x-ray findings with the patient. ED Course/Re-evaluation: An IV was established and labs ordered. Chest x-ray ordered. Chest x-ray demonstrates a right middle lobe infiltrate. Severe Sepsis/Septic Shock Care Note The patient presents to the ED with pneumonia identified as an acute infection. The patient did not have evidence of end-organ dysfunction and did not met criteria for severe sepsis. Patient will be admitted to the [facility] for treatment of his right middle lobe pneumonia. Patient has insulin dependent diabetes as well as a history of empyema and aspiration pneumonia. This is his 3rd visit for cough, feeling poorly, shortness of breath. Discussed with hospitalist service, Dr Kaplan, who is in agreement. Differential Diagnosis: Differential diagnosis for the patient's cough was considered including but not limited to viral versus bacterial bronchitis, asthma, COPD, pulmonary emboli, upper respiratory infection, lower respiratory infection, and bronchospasm. Consult/Admit Bed Type: ,MedSurg - Data Points Laboratory Results: Laboratory Results 10/09/16 13:48 10/09/16 13:06 10/09/16 10/09/16 10/09/16 14:20 13:48 13:06 WBC 11.77 10^3/uL H 10^3/uL (3.80-9.50) RBC 4.07 10^6/uL L 10^6/uL (4.40-6.38) Hgb 12.7 g/dL L g/dL (13.7-17.5) Hct 36.5 % L % (40.0-51.0) MCV 89.7 fL fL (81.5-99.8) MCH 31.2 pg pg (27.9-34.1) MCHC 34.8 g/dL g/dL (32.4-36.7) RDW 12.9 % % (11.5-15.2) Plt Count 299 10^3/uL 10^3/uL (150-400) MPV 9.2 fL fL (8.7-11.7) Neut % (Auto) 81.2 % H % (39.3-74.2) Lymph % (Auto) 9.8 % L % (15.0-45.0) [place] % (Auto) 7.8 % % (4.5-13.0) Eos % (Auto) 0.4 % L % (0.6-7.6) Baso % (Auto) 0.3 % % (0.3-1.7) Nucleat RBC Rel Count 0.0 % % (0.0-0.2) Absolute Neuts (auto) 9.55 10^3/uL H 10^3/uL (1.70-6.50) Absolute Lymphs (auto) 1.15 10^3/uL 10^3/uL (1.00-3.00) Absolute Monos (auto) 0.92 10^3/uL H 10^3/uL (0.30-0.80) Absolute Eos (auto) 0.05 10^3/uL 10^3/uL (0.03-0.40) Absolute Basos (auto) 0.04 10^3/uL 10^3/uL (0.02-0.10) Absolute Nucleated RBC 0.00 10^3/uL 10^3/uL (0-0.01) Immature Gran % 0.5 % % (0.0-1.1) Immature Gran # 0.06 10^3/uL 10^3/uL (0.00-0.10) PT INR APTT D-Dimer VBG Lactic Acid 1.4 mmol/L mmol/L (0.7-2.1) Sodium Potassium Chloride Carbon Dioxide Anion Gap BUN Creatinine Estimated GFR Glucose Calcium Total Bilirubin 1.0 mg/dL mg/dL (0.1-1.4) Troponin I 10/09/16 10/09/16 10/09/16 13:06 13:06 13:06 WBC REJ RBC REJ Hgb REJ Hct REJ MCV REJ MCH REJ MCHC REJ RDW REJ Plt Count REJ MPV REJ Neut % (Auto) REJ Lymph % (Auto) REJ [place] % (Auto) REJ Eos % (Auto) REJ Baso % (Auto) REJ Nucleat RBC Rel Count REJ Absolute Neuts (auto) REJ Absolute Lymphs (auto) REJ Absolute Monos (auto) REJ Absolute Eos (auto) REJ Absolute Basos (auto) REJ Absolute Nucleated RBC REJ Immature Gran % REJ Immature Gran # REJ PT 12.6 SEC SEC (12.0-15.0) INR 0.95 (0.83-1.16) APTT 21.1 SEC L SEC (23.0-38.0) D-Dimer 0.38 ug/mLFEU ug/mLFEU (0.00-0.50) VBG Lactic Acid Sodium 134 mEq/L mEq/L (134-144) Potassium 4.2 mEq/L mEq/L (3.5-5.2) Chloride 99 mEq/L mEq/L (97-110) Carbon Dioxide 22 mEq/l mEq/l (22-31) Anion Gap 13 mEq/L mEq/L (8-16) BUN 9 mg/dL mg/dL (7-23) Creatinine 0.5 mg/dL L mg/dL (0.7-1.3) Estimated GFR > 60 Glucose 247 mg/dL H mg/dL (70-100) Calcium 8.9 mg/dL mg/dL (8.5-10.4) Total Bilirubin Troponin I < 0.012 ng/mL ng/mL (0-0.034) Medications Given: Discontinued Medications Hydromorphone HCl (Dilaudid) 1 mg IVP EDNOW ONE Stop: 10/09/16 13:17 Last Admin: 10/09/16 13:31 Dose: 1 mg Hydromorphone HCl (Dilaudid) 1 mg IVP EDNOW ONE Stop: 10/09/16 14:08 Last Admin: 10/09/16 14:20 Dose: 1 mg Azithromycin 500 mg/ Dextrose 255 mls @ 255 mls/hr IV EDNOW ONE PRN Reason: Protocol Stop: 10/09/16 15:48 Last Admin: 10/09/16 15:32 Dose: 255 mls Ceftriaxone Sodium/Dextrose (Rocephin 1 Gm (Premix)) 50 mls @ 100 mls/hr IV EDNOW ONE PRN Reason: Protocol Stop: 10/09/16 15:18 Last Admin: 10/09/16 19:11 Dose: Not Given Ondansetron HCl (Zofran) 4 mg IVP EDNOW ONE Stop: 10/09/16 13:32 Last Admin: 10/09/16 13:25 Dose: 4 mg Departure - Departure Disposition: [facility] Inpatient Acute Clinical Impression: Pneumonia Qualifiers: Pneumonia type: due to unspecified organism Laterality: right Lung location: unspecified part of lung Qualified Code(s): J18.9 - Pneumonia, unspecified organism Condition: Fair Report Scribed for: Kelsie Snell Report Scribed by: Albert Galvin Date of Report: 10/09/16 Time of Report: 12:51
[2016-10-09] MEDS ORDERED: HYDROmorphONE/DILAUDID 1 MG/ML SYR IVP ONE ×2 (13:16→14:07)
[2016-10-09] MEDS ORDERED: ONDANSETRON 4 MG/2 ML VIAL ONE (13:23)
[2016-10-09] MEDS ORDERED: ONDANSETRON 4 MG/2 ML VIAL IVP ONE (13:31)
[2016-10-09 14:06] LABS: ANION GAP 13 mEq/L (8-16); CALCIUM 8.9 mg/dL (8.5-10.4); CARBON DIOXIDE 22 mEq/l (22-31); CHLORIDE 99 mEq/L (97-110); CREATININE 0.5 mg/dL (0.7-1.3); GLOMERULAR FILTRATION RATE > 60; GLUCOSE 247 mg/dL (70-100); POTASSIUM 4.2 mEq/L (3.5-5.2); SODIUM 134 mEq/L (134-144)
[2016-10-09 14:17] LABS: TROPONIN I < 0.012 ng/mL (0-0.034)
[2016-10-09 14:31] LABS: INR 0.95 (0.83-1.16); PROTIME(PATIENT) 12.6 SEC (12.0-15.0)
[2016-10-09 14:32] LABS: APTT 21.1 SEC (23.0-38.0)
[2016-10-09 14:45] LABS: % IMMATURE GRANULYOCYTES 0.5 % (0.0-1.1); ABSOLUTE IMMATURE GRANULOCYTES 0.06 10^3/uL (0.00-0.10); ADD DIFF? NO; ADD MORPH? NO; ADD SCAN? NO; ATYPICAL LYMPHOCYTE FLAG 20 (0-99); FRAGMENT RBC FLAG 20 (0-99); HEMATOCRIT 36.5 % (40.0-51.0); HEMOGLOBIN 12.7 g/dL (13.7-17.5); LEFT SHIFT FLG 30 (0-99); LIPEMIA HEMOLYSIS FLAG 90 (0-99); MEAN CELL HEMOGLOBIN 31.2 pg (27.9-34.1); MEAN CELL HEMOGLOBIN CONCENTR. 34.8 g/dL (32.4-36.7); MEAN CELL VOLUME 89.7 fL (81.5-99.8); MEAN PLATELET VOLUME 9.2 fL (8.7-11.7); PLATELET CLUMPS FLAG 0 (0-99); PLATELET COUNT 299 10^3/uL (150-400); RED BLOOD CELL COUNT 4.07 10^6/uL (4.40-6.38); RED CELL DISTRIBUTION WIDTH 12.9 % (11.5-15.2)
[2016-10-09] MEDS ORDERED: AZITHROMYCIN IV 500 MG in D5W 250 ML IV ONE (14:49)
[2016-10-09] MEDS ORDERED: ONDANSETRON 4 MG/2 ML VIAL IVP PRN (16:17)
[2016-10-09] MEDS ORDERED: ACETAMINOPHEN 325 MG TAB PO PRN (16:17)
[2016-10-09] MEDS ORDERED: ONDANSETRON DISINTEGRATING 4 MG TAB PO PRN (16:17)
[2016-10-09] MEDS ORDERED: D50W 25 GM/50 ML SYR IVP PRN (16:19)
--- NOTE | 2016-10-09 16:23 | PDEACUHP ---
History and Physical - Chief Complaint hands hurt, can't breathe - History of Present Illness 46 yo M with PMH that includes bipolar d/o with multiple prior psychiatric hospitalizations as well as recurrent PNH with prior empyema requiring VATS as well as opiate addiction, dependence and abuse presenting with c/o cough, sob and pain in his hands. He notes that he has been dealing with what he was worried was recurrent lung abscess for the last week. He was seen in the ER twice in the last week and given prescriptions for ativan and oxycodone, he was not thought to have pneumonia at that time. He states he has not been able to take his meds due to vomiting. He mostly is complaining of pain in his hands and cough which he thinks can only be helped by dilaudid. When asked about his prior issues with opiate use and dependency he became quite angry and said that this is not true and that it is also not true that he has a history of bipolar. He states that he feels like his breathing is as bad as it was when he had empyema. He states his o2 sats on prior ER visit last week was in the 60's, however on review of the chart it was never documented below 90. History Information - Allergies/Home Medication List Allergies/Adverse Reactions: Sulfa (Sulfonamide Antibiotics) [Sulfa(Sulfonamide Antibiotics)] Allergy (Severe , Verified 10/09/16 12:14) Anaphylaxis Home Medications: Ibuprofen [Motrin (*)] 800 mg PO DAILY PRN 03/02/16 [Last Taken Unknown] Zolpidem Tartrate [Ambien 10 mg] 10 mg PO HS PRN 03/02/16 [Last Taken 09/07/16] Amphet Asp and D/Amphet [Adderall 20 mg (*)] 20 mg PO BID 09/08/16 [Last Taken Unknown] oxyCODONE IR [Oxycodone Ir (*)] 20 mg PO Q8H PRN 09/08/16 [Last Taken 09/07/16] DULoxetine [Cymbalta 30 MG (*)] 30 mg PO DAILY 10/09/16 [Last Taken 10/07/16] NPH, HUMAN INSULIN ISOPHANE [NOVOLIN N] 0 unit SQ BID 10/09/16 [Last Taken 10/08] Omeprazole 40 mg PO BID 10/09/16 [Last Taken Unknown] I have personally reviewed and updated: family history, medical history, social history, surgical history - Past Medical History diabetes type 1, GERD, psychiatric history (bipolar depression with psychotic features, prior suicide attempts, opiate abuse), pneumonia Additional medical history: hyponatremia 2/2 SIADH. ADHD - Surgical History Additional surgical history: VATS - Family History Positive for: non-pertinent - Social History Smoking Status: Former smoker Alcohol Use: None Drug Use: None Additional social history: arrested in the past for prescription drug fraud. 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 hx of opiate abuse and withdrawal Review of Systems ROS: 10pt was reviewed & negative except for what was stated in HPI & below Physical Exam Temp Pulse Resp BP Pulse Ox 36.9 C 114 H 20 154/102 H 94 10/09/16 12:18 10/09/16 14:00 10/09/16 14:00 10/09/16 14:00 10/09/16 14:00 Constitutional: no apparent distress, unkempt, other (maloldorous) Eyes: PERRL, anicteric sclera Ears, Nose, Mouth, Throat: moist mucous membranes, poor dentition Cardiovascular: regular rate and rhythym, no murmur, rub, or gallop Respiratory: no respiratory distress, rhonchi (right sided) Gastrointestinal: normoactive bowel sounds, soft, non-tender abdomen Skin: warm, normal color Musculoskeletal: full muscle strength Neurologic: AAOx3, sensation intact bilaterally Psychiatric: not encephalopathic, agitated, other (perseverating on needing dilaudid) Lab Data & Imaging Review 10/09/16 13:48 10/09/16 13:06 WBC 11.77 10^3/uL (3.80-9.50) H 10/09/16 13:48 RBC 4.07 10^6/uL (4.40-6.38) L 10/09/16 13:48 Hgb 12.7 g/dL (13.7-17.5) L 10/09/16 13:48 Hct 36.5 % (40.0-51.0) L 10/09/16 13:48 MCV 89.7 fL (81.5-99.8) 10/09/16 13:48 MCH 31.2 pg (27.9-34.1) 10/09/16 13:48 MCHC 34.8 g/dL (32.4-36.7) 10/09/16 13:48 RDW 12.9 % (11.5-15.2) 10/09/16 13:48 Plt Count 299 10^3/uL (150-400) 10/09/16 13:48 MPV 9.2 fL (8.7-11.7) 10/09/16 13:48 Neut % (Auto) 81.2 % (39.3-74.2) H 10/09/16 13:48 Lymph % (Auto) 9.8 % (15.0-45.0) L 10/09/16 13:48 [place] % (Auto) 7.8 % (4.5-13.0) 10/09/16 13:48 Eos % (Auto) 0.4 % (0.6-7.6) L 10/09/16 13:48 Baso % (Auto) 0.3 % (0.3-1.7) 10/09/16 13:48 Nucleat RBC Rel Count 0.0 % (0.0-0.2) 10/09/16 13:48 Absolute Neuts (auto) 9.55 10^3/uL (1.70-6.50) H 10/09/16 13:48 Absolute Lymphs (auto) 1.15 10^3/uL (1.00-3.00) 10/09/16 13:48 Absolute Monos (auto) 0.92 10^3/uL (0.30-0.80) H 10/09/16 13:48 Absolute Eos (auto) 0.05 10^3/uL (0.03-0.40) 10/09/16 13:48 Absolute Basos (auto) 0.04 10^3/uL (0.02-0.10) 10/09/16 13:48 Absolute Nucleated RBC 0.00 10^3/uL (0-0.01) 10/09/16 13:48 Immature Gran % 0.5 % (0.0-1.1) 10/09/16 13:48 Immature Gran # 0.06 10^3/uL (0.00-0.10) 10/09/16 13:48 PT 12.6 SEC (12.0-15.0) 10/09/16 13:06 INR 0.95 (0.83-1.16) 10/09/16 13:06 APTT 21.1 SEC (23.0-38.0) L 10/09/16 13:06 D-Dimer 0.38 ug/mLFEU (0.00-0.50) 10/09/16 13:06 VBG Lactic Acid 1.4 mmol/L (0.7-2.1) 10/09/16 14:20 Sodium 134 mEq/L (134-144) 10/09/16 13:06 Potassium 4.2 mEq/L (3.5-5.2) 10/09/16 13:06 Chloride 99 mEq/L (97-110) 10/09/16 13:06 Carbon Dioxide 22 mEq/l (22-31) 10/09/16 13:06 Anion Gap 13 mEq/L (8-16) 10/09/16 13:06 BUN 9 mg/dL (7-23) 10/09/16 13:06 Creatinine 0.5 mg/dL (0.7-1.3) L 10/09/16 13:06 Estimated GFR > 60 10/09/16 13:06 Glucose 247 mg/dL (70-100) H 10/09/16 13:06 Calcium 8.9 mg/dL (8.5-10.4) 10/09/16 13:06 Total Bilirubin 1.0 mg/dL (0.1-1.4) 10/09/16 13:06 Troponin I < 0.012 ng/mL (0-0.034) 10/09/16 13:06 Visualized and Interpreted Chest x-ray results: Yes Chest X-Ray results: infiltrate (right middle lobe) Assessment & Plan Assessment: Pneumonia (Acute) Sepsis (Acute) 46 yo M with PMH of bipolar d/o with psychotic features as well as multiple prior admissions for pna including MRSA pna/empyema admitted with rml pna # RML PNA: completely non toxic appearing on exam, HD stable, hx of MRSA pna and empyema in the past. Not hypoxic. Has received ctx/azith in ER and will transition to levofloxacin in the am. Likely dc in am so long as remains stable overnight # hand pain: patient states that he has neuropathic pain and cough that respond best to dilaudid, explained that we do not use dilaudid for this and discussed with him that his hx of opiate abuse in the past raises concerns about starting him on opiates. Reviewed his PDMP and he has multiple addresses listed, multiple pharmacies and prescribers but does not appear to be on any chronic narcotics other than what has been given recently in ER. Will be very cautious with any pain medications given and since he filled a prescription for oxy 5 days ago from our ER, will likely not dc on any opiates so long as there is no change in his condition # bipolar d/o with psychotic features: patient denies but he has multiple psychiatric records and IP psych hospitalizations even requiring precedex gtt to manage his agitation. Did become agitated when confronted about his opiate use history. Will monitor, currently behaviorally controlled. # DM1: patient states his blood sugars have been very labile, will start SSI and monitor # dispo: observation status, suspect that so long as he is stable overnight will likely be ready to dc in am Patient new to my care. Old records reviewed and summarized as above. PDMP reviewed and summarized as above.
[2016-10-09] MEDS ORDERED: NON-FORMULARY NEW DRUG (Zolpidem Tartrate [Ambien 10 Mg] 10 MG) PO PRN (16:55)
[2016-10-09] MEDS: BENZONATATE 100 MG CAP PO PRN ×2 (17:17→22:56)
[2016-10-09] MEDS: GUAIFENESIN/DM 10 ML UDCUP PO PRN ×2 (17:17→22:56)
[2016-10-09] MEDS: IBUPROFEN 200 MG TAB PO PRN (17:17)
[2016-10-09] MEDS: oxyCODONE IR 5 MG TAB PO PRN (17:18)
[2016-10-09] MEDS: LORazepam 1 MG TAB PO PRN (17:19)
[2016-10-09] MEDS: INSULIN LISPRO 100 UNIT/ML SC SCH (17:47)
[2016-10-09 18:32] LABS: COLOR PALE YELLOW; LEUKOCYTE ESTERASE,URINE NEGATIVE (NEGATIVE); NITRITE,URINE NEGATIVE (NEGATIVE)
[2016-10-09 19:01] LABS: WBC,URINE NONE SEEN /hpf (0-3)
[2016-10-09] MEDS: PANTOPRAZOLE SODIUM 40 MG TAB PO SCH (20:54)
[2016-10-09] MEDS ORDERED: NON-FORMULARY NEW DRUG (Omeprazole [Omeprazole] 40 MG) PO SCH (21:00)
[2016-10-10] MEDS: BENZONATATE 100 MG CAP PO PRN ×3 (04:37→20:42)
[2016-10-10] MEDS: oxyCODONE IR 5 MG TAB PO PRN ×3 (04:37→20:31)
[2016-10-10] MEDS: LORazepam 1 MG TAB PO PRN (04:40)
[2016-10-10] MEDS: IBUPROFEN 200 MG TAB PO PRN ×2 (05:25→14:37)
[2016-10-10] MEDS: GUAIFENESIN/DM 10 ML UDCUP PO PRN ×3 (05:52→20:32)
[2016-10-10] MEDS: INSULIN LISPRO 100 UNIT/ML SC SCH ×3 (07:52→16:31)
[2016-10-10] MEDS: PANTOPRAZOLE SODIUM 40 MG TAB PO SCH ×2 (07:53→20:32)
[2016-10-10] MEDS: DULoxetine 30 MG CAP PO SCH (07:53)
[2016-10-10] MEDS: ADDERALL 20 MG TAB PO SCH ×2 (07:54→12:02)
--- NOTE | 2016-10-10 13:17 | HOSPPROG ---
Hospitalist Progress Note Assessment/Plan: 46 yo M with hx of bipolar d/o with psychotic features as well as prior issues with opiate abuse and dependence, dm and prior empyema pw RML PNA # RML PNA: with hx of prior empyema and lung abscess with MRSA in the past. Started on ctx/azith and transitioned to levofloxacin today. Continues to have cough and generalized malaise but otherwise is feeling a bit better. Not hypoxic , not septic appearing. # DM1: continued on SSI # opiate abuse and dependence: patient continues to c/o severe neuropathic pain and will continue prn oxycodone. Patient reports being on 20mg q8 of oxycodone at home, but per PDMP records that this not the case. # bipolar d/o: with hx of psychotic features and suicide attempts, currently behaviorally well controlled # dispo: dc home likely in am, will need < 48 hours stay for eval/mgmt of above Subjective: no significant overnight events, patient notes feeling a bit better currently than yesterday but still having significant productive cough and malaise Objective: Vital Signs Temp Pulse Resp BP Pulse Ox 36.9 C 93 14 150/97 H 93 10/10/16 11:09 10/10/16 11:09 10/10/16 11:09 10/10/16 11:09 10/10/16 11:09 10/09/16 10/10/16 10/11/16 05:59 05:59 05:59 Intake Total 1000 Output Total 750 Balance 1000 -750 PT 12.6 SEC (12.0-15.0) 10/09/16 13:06 INR 0.95 (0.83-1.16) 10/09/16 13:06 Constitutional: no apparent distress, unkempt, other (maloldorous) Eyes: PERRL, anicteric sclera Ears, Nose, Mouth, Throat: moist mucous membranes, poor dentition Cardiovascular: regular rate and rhythym, no murmur, rub, or gallop Respiratory: no respiratory distress, rhonchi (right sided) Gastrointestinal: normoactive bowel sounds, soft, non-tender abdomen Skin: warm, normal color Musculoskeletal: full muscle strength Neurologic: AAOx3, sensation intact bilaterally Psychiatric: not encephalopathic, agitated, other (perseverating on needing dilaudid) ICD10 Worksheet Patient Problems: Problems Problem Status Onset Pneumonia Acute Bipolar affective disorder, current episode depression Active Diabetes mellitus type 2 Active Bronchospasm Acute DKA (diabetic ketoacidoses) Acute Empyema of left pleural space Acute Hyperglycemia Acute Left lower lobe pneumonia Acute MRSA (methicillin resistant Staphylococcus aureus) Acute 10/30/15 Pneumonia Acute
[2016-10-10] MEDS: ZOLPIDEM TARTRATE 5 MG TAB PO PRN (20:31)
[2016-10-11] MEDS: GUAIFENESIN/DM 10 ML UDCUP PO PRN ×3 (01:13→20:05)
[2016-10-11] MEDS: LORazepam 1 MG TAB PO PRN ×2 (01:13→13:45)
[2016-10-11] MEDS: ADDERALL 20 MG TAB PO SCH ×2 (07:33→11:16)
[2016-10-11] MEDS: PANTOPRAZOLE SODIUM 40 MG TAB PO SCH ×2 (07:34→20:06)
[2016-10-11] MEDS: DULoxetine 30 MG CAP PO SCH (07:34)
[2016-10-11] MEDS: INSULIN LISPRO 100 UNIT/ML SC SCH ×3 (07:40→15:28)
[2016-10-11] MEDS: BENZONATATE 100 MG CAP PO PRN ×2 (07:54→20:05)
[2016-10-11] MEDS: oxyCODONE IR 5 MG TAB PO PRN ×3 (07:54→20:05)
[2016-10-11 09:29] LABS: % IMMATURE GRANULYOCYTES 0.2 % (0.0-1.1); ABSOLUTE IMMATURE GRANULOCYTES 0.02 10^3/uL (0.00-0.10); ADD DIFF? NO; ADD MORPH? NO; ADD SCAN? NO; ATYPICAL LYMPHOCYTE FLAG 20 (0-99); FRAGMENT RBC FLAG 0 (0-99); HEMATOCRIT 42.9 % (40.0-51.0); HEMOGLOBIN 14.7 g/dL (13.7-17.5); LEFT SHIFT FLG 0 (0-99); LIPEMIA HEMOLYSIS FLAG 90 (0-99); MEAN CELL HEMOGLOBIN 30.7 pg (27.9-34.1); MEAN CELL HEMOGLOBIN CONCENTR. 34.3 g/dL (32.4-36.7); MEAN CELL VOLUME 89.6 fL (81.5-99.8); MEAN PLATELET VOLUME 8.7 fL (8.7-11.7); PLATELET CLUMPS FLAG 10 (0-99); PLATELET COUNT 350 10^3/uL (150-400); RED BLOOD CELL COUNT 4.79 10^6/uL (4.40-6.38); RED CELL DISTRIBUTION WIDTH 12.5 % (11.5-15.2)
[2016-10-11 09:44] LABS: ALANINE AMINOTRANSFERASE 28 IU/L (21-72); ALKALINE PHOSPHATASE 94 IU/L (38-126); ANION GAP 11 mEq/L (8-16); ASPARTATE AMINOTRANSFERASE 14 IU/L (17-59); BILIRUBIN,TOTAL 0.5 mg/dL (0.1-1.4); CARBON DIOXIDE 26 mEq/l (22-31); CHLORIDE 100 mEq/L (97-110); CREATININE 0.7 mg/dL (0.7-1.3); GLOMERULAR FILTRATION RATE > 60; GLUCOSE 159 mg/dL (70-100); POTASSIUM 5.2 mEq/L (3.5-5.2); SODIUM 137 mEq/L (134-144); TOTAL PROTEIN 7.5 g/dL (6.3-8.2)
[2016-10-11] MEDS: predniSONE 20 MG TAB PO SCH (12:00)
[2016-10-11] MEDS: IPRATROPIUM BROMIDE 0.5 MG/2.5 ML DEYVIAL IH SCH ×2 (12:04→18:29)
[2016-10-11] MEDS: IBUPROFEN 200 MG TAB PO PRN (13:34)
[2016-10-11] MEDS: NICOTINE 21 MG/24 HR PATCH TD SCH (14:59)
--- NOTE | 2016-10-11 17:43 | HOSPPROG ---
Hospitalist Progress Note Assessment/Plan: Assessment/Plan: 46 yo M p/w RML pneumonia c/b acute reactive airway exacerbation # reactive airway exacerbation: acute, evidenced by diffuse exp wheezes and bronchial breath sounds, 2/2 PNA - start prednisone and duonebs, gauge response # RML PNA: with hx of prior empyema and lung abscess with MRSA, reports his pulm sx remain present - order outside records from [facility] to determine previous treated pathogen and sensitivities - cont on levofloxacin - if pulm sx persist, will adjust to invanz # DM1: continued on SSI # continuous opiate and benzodiazepine dependency: patient continues to c/o severe neuropathic pain and will continue prn oxycodone, as well as ativan bid # bipolar d/o: with hx of psychotic features and suicide attempts, currently behaviorally well controlled diet. diabetic ppx. low risk, SCDs code. full dispo. ADD 10/12, pending clinical stabilization of reactive airways Subjective: Patient reports that he continues to feel unwell, continues to experience pulmonary symptoms Objective: Vital Signs Temp Pulse Resp BP Pulse Ox 36.5 C 94 16 161/116 H 96 10/11/16 15:06 10/11/16 15:06 10/11/16 15:06 10/11/16 15:06 10/11/16 15:06 Microbiology 10/11/16 09:15 - Final Sputum, Expectorated Laboratory Results 10/11/16 09:15 10/11/16 09:15 10/10/16 10/11/16 10/12/16 05:59 05:59 05:59 Intake Total 500 Balance 500 PT 12.6 SEC (12.0-15.0) 10/09/16 13:06 INR 0.95 (0.83-1.16) 10/09/16 13:06 - Pending Discharge Pending Discharge Within 24 Hours: Yes Pending Discharge Date: 10/12/16 Pending Discharge Time: 11:00 - Physical Exam Constitutional: no apparent distress, not in pain, chronically ill appearing, uncomfortable Cardiovascular: regular rate and rhythym, no murmur, rub, or gallop, No irregularly irregular, No edema Respiratory: expiratory wheeze, bronchial breath sounds, rhonchi (Inspiration right side), No respiratory distress Gastrointestinal: normoactive bowel sounds, soft, non-tender abdomen, no palpable masses Neurologic: AAOx3, sensation intact bilaterally Psychiatric: interacting appropriately, not encephalopathic, thought process linear, anxious, No agitated ICD10 Worksheet Patient Problems: Problems Problem Status Onset Bipolar affective disorder, current episode depression Active Diabetes mellitus type 2 Active Hyperglycemia Acute Left lower lobe pneumonia Acute DKA (diabetic ketoacidoses) Acute Bronchospasm Acute MRSA (methicillin resistant Staphylococcus aureus) Acute 10/30/15 Empyema of left pleural space Acute Pneumonia Acute Pneumonia Acute
[2016-10-11] MEDS: ERTAPENEM 1 GM in NS 100 ML IV SCH (20:06)
[2016-10-11] MEDS ORDERED: INSULIN LISPRO 100 UNIT/ML SC ONE (21:30)
[2016-10-11] MEDS ORDERED: IPRATROPIUM BROMIDE 0.5 MG/2.5 ML DEYVIAL IH PRN (21:50)
[2016-10-11] MEDS: ZOLPIDEM TARTRATE 5 MG TAB PO PRN (22:02)
[2016-10-12] MEDS: oxyCODONE IR 5 MG TAB PO PRN ×2 (02:53→08:33)
[2016-10-12] MEDS: LORazepam 1 MG TAB PO PRN ×2 (02:54→10:33)
[2016-10-12 07:39] VITALS: BP 140/100; PULSE 91; RESP 18; TEMP 97.7; O2SAT 96
[2016-10-12] MEDS: predniSONE 20 MG TAB PO SCH (08:25)
[2016-10-12] MEDS: ADDERALL 20 MG TAB PO SCH ×2 (08:25→11:36)
[2016-10-12] MEDS: DULoxetine 30 MG CAP PO SCH (08:25)
[2016-10-12] MEDS: PANTOPRAZOLE SODIUM 40 MG TAB PO SCH (08:25)
[2016-10-12 08:26] LABS: % IMMATURE GRANULYOCYTES 0.4 % (0.0-1.1); ABSOLUTE IMMATURE GRANULOCYTES 0.03 10^3/uL (0.00-0.10); ADD DIFF? NO; ADD MORPH? NO; ADD SCAN? NO; ATYPICAL LYMPHOCYTE FLAG 50 (0-99); FRAGMENT RBC FLAG 0 (0-99); HEMATOCRIT 42.4 % (40.0-51.0); HEMOGLOBIN 14.6 g/dL (13.7-17.5); LEFT SHIFT FLG 0 (0-99); LIPEMIA HEMOLYSIS FLAG 90 (0-99); MEAN CELL HEMOGLOBIN 31.3 pg (27.9-34.1); MEAN CELL HEMOGLOBIN CONCENTR. 34.4 g/dL (32.4-36.7); MEAN PLATELET VOLUME 8.6 fL (8.7-11.7); PLATELET CLUMPS FLAG 0 (0-99); PLATELET COUNT 394 10^3/uL (150-400); RED BLOOD CELL COUNT 4.66 10^6/uL (4.40-6.38); RED CELL DISTRIBUTION WIDTH 12.5 % (11.5-15.2)
[2016-10-12] MEDS: NICOTINE 21 MG/24 HR PATCH TD SCH ×2 (08:26→11:36)
[2016-10-12] MEDS: INSULIN LISPRO 100 UNIT/ML SC SCH ×2 (08:26→11:44)
[2016-10-12] MEDS: ERTAPENEM 1 GM in NS 100 ML IV SCH (08:33)
[2016-10-12 09:18] LABS: ANION GAP 12 mEq/L (8-16); CALCIUM 9.7 mg/dL (8.5-10.4); CARBON DIOXIDE 23 mEq/l (22-31); CHLORIDE 100 mEq/L (97-110); CREATININE 0.7 mg/dL (0.7-1.3); GLOMERULAR FILTRATION RATE > 60; GLUCOSE 315 mg/dL (70-100); POTASSIUM 4.1 mEq/L (3.5-5.2); SODIUM 135 mEq/L (134-144)
[2016-10-12] MEDS: GUAIFENESIN/DM 10 ML UDCUP PO PRN (10:33)
--- NOTE | 2016-10-12 13:28 | PDDCSUM ---
Discharge Summary Discharge Summary: DISCHARGE SUMMARY FOLLOW-UP ITEMS: Repeat chest x-ray in 4-6 weeks DATE OF ADMISSION: 10/09/2016 DATE OF DISCHARGE: 10/12/2016 DISCHARGE DIAGNOSES: 1. Acute right middle lobe pneumonia 2. Acute reactive airway exacerbation 3. Diabetes mellitus type 1 3. Chronic pain with continuous opiate and benzodiazepine dependency 4. Bipolar disease with history of psychotic features CONSULTATIONS: None PROCEDURES / IMAGING: Chest x-ray demonstrating right middle lobe infiltrate CHIEF COMPLAINT: Cough and general malaise SUBJECTIVE: Patient reports cough and general malaise improved PHYSICAL EXAM ON DISCHARGE: Systolic blood pressure is 1/20, heart rate 90s, afebrile overnight, satting well on room air, faint inspiratory crackles in the right mid posterior lateral segment without any inspiratory wheezes, no expiratory wheezes, no bronchial breath sounds LABS ON DISCHARGE: White blood cell count 7500, glucose 250-350 HOSPITAL COURSE BY PROBLEM: 1. Acute right middle lobe pneumonia. Evidenced by focal infiltrate on chest x- ray as well as leukocytosis and tachycardia with pulmonary symptoms. Patient has an extensive history of recurrent pneumonia as well as empyema on the left, with documented culture positive MRSA as well as Enterobacter in the past. Of note, his infiltrate is new compared to a chest x-ray on 10/05/2016 and is unlikely to be MRSA given that he has clinically improved while receiving antibiotics which do not cover MRSA. He reports that he experienced clinical improvement after receiving azithromycin and ceftriaxone, and he has been adjusted to cefpodoxime and azithromycin after receiving 2 days of Invanz therapy experiencing clinical improvement. I do recommend that he have a repeat chest x-ray in the outpatient setting to demonstrate clearance given his likelihood of experiencing repeat pneumonias in the future. 2. Acute reactive airway exacerbation. Evidenced by diffuse expiratory wheezes and bronchial breath sounds with symptomatic shortness of breath. Most likely provoked by pneumonia, responsive to Atrovent nebulizer as well as introduction of prednisone. Recommended a 5 day burst of prednisone as well as ongoing use of Atrovent inhaler. Detection of this condition on 10/11 did extend his hospitalization. 3. Diabetes mellitus type 1. With hyperglycemia, exacerbated by steroid initiation, have recommended that the patient increase his NPH dosage to accommodate his hyperglycemia over the next several days. He will also continue with mealtime boluses. 4. Bipolar disease with history of psychotic features. The patient is requesting ongoing use of Adderall and he has been stable from a psychiatric standpoint on Adderall and Cymbalta. Will provide him with his Adderall prescription for the next 2 weeks to be reassessed by his primary care provider 5. Chronic pain with continuous opiate and benzodiazepine dependency. Patient is unable to see his primary care provider for 2 weeks and will provide him with a limited supply of oxycodone immediate release as well as Ativan. Patient is low risk for abuse and overuse given his ongoing dependency. DISCHARGE MEDICATIONS: Please see official discharge medication reconciliation sheet in chart , cefpodoxime 200 mg twice daily x5 subsequent days, azithromycin 500 mg once daily x5 subsequent days, prednisone 40 mg daily x3 subsequent days, Atrovent inhaler, oxycodone immediate release 5-10 mg q.6 hours as needed, 8 tabs prescribed, Ativan 2 mg twice daily as needed, 28 tabs prescribed. DISCHARGE INSTRUCTIONS: Patient should follow up with his primary care provider in 2 weeks time. TIME SPENT: Greater than 30 minutes were spent on direct patient care, as well as discharge planning and preparation.
== END 2016-10-12 14:03 | disposition home or self-care (01) | DRG 194 ==
LOC: F3E 16:33 → OBSVTOIN 10-10 13:13
PROVIDERS: ADMIT Hospitalist; ATTEND Hospitalist
DX: J18.9 Pneumonia, unspecified organism (principal); J45.901 Unspecified asthma with (acute) exacerbation; E10.65 Type 1 diabetes mellitus with hyperglycemia; M79.643 Pain in unspecified hand; G89.29 Other chronic pain; F11.20 Opioid dependence, uncomplicated; F31.9 Bipolar disorder, unspecified; Z87.891 Personal history of nicotine dependence; Z87.442 Personal history of urinary calculi; Z87.01 Personal history of pneumonia (recurrent)
CPT/HCPCS: 96365; G0378; J0456; J1170; J1335; J1815; J2405

== ENCOUNTER 2016-11-04 04:15 | Emergency (ER) | payer MEDICAID ==
--- NOTE | 2016-11-04 04:24 | EDPHY ---
H & P HPI/ROS: HPI CHIEF COMPLAINT: Cough HISTORY OF PRESENT ILLNESS: This patient very pleasant 46-year-old male significant past medical history for right middle lobe pneumonia, reactive airway disease, type 1 diabetes, chronic pain with opiate dependency and benzo dependency, bipolar disorder, was admitted to the hospital on October 12 for right middle lobe pneumonia. He has since completed his course of antibiotics. Presents emergency room by EMS after call 911 from the [email or web address] complaining of worsening cough. He is concerned that is pneumonia his return. Does have a history of recurrent pneumonia. He denies having a fever, chills, rigors. Denies nausea vomiting or chest pain. Denies pleuritic pain. Past Medical History: Bipolar disorder, chronic pain, chronic benzo use, type 1 diabetes, reactive airway disease, right middle lobe pneumonia Past Surgical History: No recent surgical history Social History: Smokes tobacco, denies alcohol or illicit drug Family History: Noncontributory ROS REVIEW OF SYSTEMS: A comprehensive 10 point review of systems is otherwise negative aside from elements mentioned in the history of present illness. Exam Constitutional appears well, nontoxic, no acute described triage nursing summary reviewed, vital signs reviewed, awake/alert. Eyes normal conjunctivae and sclera, EOMI, PERRLA. HENT normal inspection, atraumatic, moist mucus membranes, no epistaxis, neck supple/ no meningismus, no raccoon eyes. Respiratory no appreciable wheezes, crackles, rales, clear to auscultation bilaterally, normal breath sounds, no respiratory distress Cardiovascular rate normal, regular rhythm, no murmur, no edema, distal pulses normal. Gastrointestinal soft, non-tender, no rebound, no guarding, normal bowel sounds, no distension, no pulsatile mass. Genitourinary no CVA tenderness. Musculoskeletal no midline vertebral tenderness, full range of motion, no calf swelling, no tenderness of extremities, no meningismus, good pulses, neurovascularly intact. Skin pink, warm, & dry, no rash, skin atraumatic. Neurologic awake, alert and oriented x 3, AAOx3, moves all 4 extremities equally, motor intact, sensory intact, CN II-XII intact, normal cerebellar, normal vision, normal speech. Psychiatric normal mood/affect. Heme/Lymph/Immune no lymphadenopathy. Differential Diagnosis: Includes but is not limited to in a particular order, recurrent pneumonia, reactive airway disease, tobacco abuse, anxiety, pneumothorax Medical Decision Making: This patient appears well nontoxic no acute distress here in the emergency room. His oxygen level is normal. He is slightly tachypneic but appears very anxious, he is moving good air throughout both lung avila, there is no wheezing, crackles, rales. He is not coughing here. He does not appear to be any respiratory distress. This time I will repeat his chest x-ray two view to evaluate if he has recurrent pneumonia. Re-evaluation: ED x-ray chest two view: this is negative for acute cardiopulmonary disease specifically I do not appreciate any new focal pneumonia. When compared to his old chest x-ray two view on 10/09/2016 the right lower lobe pneumonia has resolved. 0442: Patient is specifically requesting IV morphine 6 mg here for cough. The patient has been here for close to 30 minutes without any coughing number exam is lungs at this time he has good air movement his oxygen levels appropriate. He is not in any distress. He is also asking for something for nausea I provided him Zofran ODT. I will recheck his blood sugar as it was noted to be elevated by EMS in the low 300s. I did offer this patient antibiotic for azithromycin as he feels he is getting early pneumonia however he has declined any antibiotics. 0507: patient is specifically requesting IV morphine 6 mg for cough. I explained him that I do not think it is appropriate to give him 6 mg IV morphine for cough control he is not once cough here in the emergency room. I offered him guaifenesin or Tessalon Pearls however he has declined. 0533: patient refused IV placement does not want any IV fluids. He was going to get hydrated due to elevated blood sugar of 380s on his i-STAT. His BMP is pending. Patient agreeable to p.o. drinking clear fluids, as well as subcutaneous insulin 8 units 0603: Patient's BMP result shows a blood glucose close to 400. Patient refused IV establishment or IV fluids. He was agreeable to 8 units of subcutaneous insulin. Will recheck blood sugar after insulin. 0616: re-evaluation patient he is refusing any further blood draws specifically any IV establishment or any blood draw he will not allow us to recheck his blood sugar. He did receive 8 units subcu insulin. He tells me that he can feel his blood sugar lower. He would like to be discharged. I explained him if he feels bad today has vomiting abdominal pain or feels like he is in DKA or his sugars increasing needs return to the emergency room. Source: Patient, EMS - Personal History Tetanus Vaccine Date: 2013 - Medical/Surgical History Hx Asthma: No Hx Chronic Respiratory Disease: No Hx Diabetes: Yes Hx Cardiac Disease: No Hx Renal Disease: No Hx Cirrhosis: No Hx Alcoholism: No Hx HIV/AIDS: No Hx Splenectomy or Spleen Trauma: No Other PMH: PMH: DIABETES,KIDNEY STONES, GERD, PNA WITH MRSA, EMPYEMA - Social History Smoking Status: Former smoker Constitutional: Initial Vital Signs Temperature (C) 36.9 C 11/04/16 04:23 Respiratory Rate 24 H 11/04/16 04:23 Blood Pressure 111/74 11/04/16 04:23 O2 Sat (%) 94 11/04/16 04:23 O2 Delivery Mode Room Air Allergies/Adverse Reactions: Sulfa (Sulfonamide Antibiotics) [Sulfa(Sulfonamide Antibiotics)] Allergy (Severe , Verified 10/09/16 12:14) Anaphylaxis DILIP Inhibitors Allergy (Verified 11/04/16 04:23) Home Medications: Medication Instructions Recorded Zolpidem Tartrate [Ambien 10 mg] 10 mg PO HS PRN 03/02/16 DULoxetine [Cymbalta 30 MG (*)] 30 mg PO DAILY 10/09/16 Acetaminophen [Tylenol 325mg (*)] 650 mg PO Q4HRS PRN #0 tab 10/12/16 Amphet Asp and D/Amphet [Adderall 40 mg PO BID@,12 #56 tab 10/12/16 20 mg (*)] Azithromycin 500 mg PO DAILY #5 tablet 10/12/16 Cefpodoxime Proxetil [Vantin] 200 mg PO BID #10 tab 10/12/16 Ibuprofen [Motrin (*)] 800 mg PO BID PRN #30 tab 10/12/16 Ipratropium [Atrovent Hfa (*)] 2 puffs IH Q4 PRN #1 mdi 10/12/16 LORazepam [Ativan (*)] 2 mg PO DAILY PRN #28 tab 10/12/16 Pantoprazole Sodium [Protonix 40mg 40 mg PO BID #30 tab 10/12/16 (*)] clonIDINE [Catapres (*)] 0.2 mg PO TID #42 tab 10/12/16 oxyCODONE IR [Oxycodone Ir (*)] 5 - 10 mg PO Q6 PRN #80 tab 10/12/16 predniSONE 40 mg PO DAILY #6 tablet 10/12/16 Guaifenesin [Guaifenesin ER] 600 mg PO BID #7 tab.er.12h 11/04/16 Ondansetron HCl [Zofran] 4 mg PO Q4-6PRN PRN #10 tablet 11/04/16 Medical Decision Making - Data Points Laboratory Results: Laboratory Results 11/04/16 05:15 11/04/16 11/04/16 05:15 04:06 POC Hgb 13.9 gm/dL L gm/dL (14.5-17.3) POC Hct 41 % L % (42.8-50.6) POC Sodium 134 mEq/L mEq/L (134-144) Sodium 132 mEq/L L mEq/L (134-144) POC Potassium 3.6 mEq/L mEq/L (3.3-5.0) Potassium 3.7 mEq/L mEq/L (3.5-5.2) POC Chloride 96 mEq/L mEq/L (96-108) Chloride 98 mEq/L mEq/L (97-110) Carbon Dioxide 21 mEq/l L mEq/l (22-31) Anion Gap 13 mEq/L mEq/L (8-16) POC BUN 14 mg/dL mg/dL (7-23) BUN 15 mg/dL mg/dL (7-23) Creatinine 0.7 mg/dL mg/dL (0.7-1.3) POC Creatinine 0.7 mg/dL L mg/dL (0.8-1.5) Estimated GFR > 60 Glucose 403 mg/dL H mg/dL (70-100) POC Glucose 387 mg/dL H mg/dL (70-100) Calcium 9.5 mg/dL mg/dL (8.5-10.4) Medications Given: Discontinued Medications Sodium Chloride (Ns) 1,000 mls @ 0 mls/hr IV ONCE ONE PRN Reason: Wide Open Stop: 11/04/16 05:16 Last Admin: 11/04/16 05:50 Dose: Not Given Ibuprofen (Motrin) 800 mg PO EDNOW ONE Stop: 11/04/16 04:52 Last Admin: 11/04/16 05:00 Dose: 800 mg Insulin Human Regular (Humulin R) 8 unit SC EDNOW ONE Stop: 11/04/16 05:17 Last Admin: 11/04/16 05:45 Dose: 8 unit Ondansetron HCl (Zofran Odt) 4 mg PO EDNOW ONE Stop: 11/04/16 04:52 Last Admin: 11/04/16 05:00 Dose: 4 mg Point of Care Test Results: 11/04/16 04:06 POC Sodium 134 POC Potassium 3.6 POC Chloride 96 POC BUN 14 POC Creatinine 0.7 L POC Glucose 387 H Departure - Departure Disposition: Home, Routine, Self-Care Clinical Impression: Cough, Hyperglycemia Condition: Good Instructions: Cold Symptoms (ED), Acute Cough (ED) Additional Instructions: 1. Please stay well-hydrated drink lots of fluids. 2. return emergency room if you feel worse. If your develop fever or severe cough. 3.Please monitor blood sugar closely. Referrals: Patient,NotPresent [Unknown] - As per Instructions Prescriptions: Guaifenesin [Guaifenesin ER] 600 mg PO BID #7 tab.er.12h Ondansetron HCl [Zofran] 4 mg PO Q4-6PRN PRN #10 tablet PRN Reason: Nausea/Vomiting, Use 1st
[2016-11-04 04:26] VITALS: TEMP 98.4
[2016-11-04 04:31] VITALS: RESP 24
[2016-11-04] MEDS ORDERED: ONDANSETRON DISINTEGRATING 4 MG TAB PO ONE (04:51)
[2016-11-04] MEDS ORDERED: IBUPROFEN 200 MG TAB PO ONE (04:51)
[2016-11-04] MEDS ORDERED: NS 1,000 ML IV ONE (05:15)
[2016-11-04] MEDS ORDERED: INSULIN REGULAR HUMAN 100 UNIT/ML SC ONE (05:16)
[2016-11-04 05:37] LABS: ANION GAP 13 mEq/L (8-16); CALCIUM 9.5 mg/dL (8.5-10.4); CARBON DIOXIDE 21 mEq/l (22-31); CHLORIDE 98 mEq/L (97-110); CREATININE 0.7 mg/dL (0.7-1.3); GLOMERULAR FILTRATION RATE > 60; GLUCOSE 403 mg/dL (70-100); POTASSIUM 3.7 mEq/L (3.5-5.2); SODIUM 132 mEq/L (134-144)
[2016-11-04 06:28] VITALS: BP 124/90; PULSE 89; O2SAT 93
== END 2016-11-04 06:38 | disposition home or self-care (01) ==
LOC: EDUNIT# → EDBD
DX: R05 Cough (principal); E10.65 Type 1 diabetes mellitus with hyperglycemia; Z87.891 Personal history of nicotine dependence
CPT/HCPCS: 82947-QW; J1815

== ENCOUNTER 2016-12-05 13:56 | Inpatient (IN) | payer MEDICAID ==
[2016-12-05] MEDS ORDERED: NS 1,000 ML IV ONE ×2 (14:06→15:17)
--- NOTE | 2016-12-05 14:12 | EDPHY ---
H & P Time Seen by Provider: 12/05/16 13:57 HPI/ROS: CHIEF COMPLAINT: Dyspnea HISTORY OF PRESENT ILLNESS: The patient is a 46-year-old man with a history of recurrent multi lobar pneumonia and The MRSA empyema requiring VATS procedure last year. He comes to the emergency department by EMS complaining of shortness of breath. He was found to be 88% on room air by paramedics. His saturations improved with oxygen. He complains of a cough. He denies fevers or diaphoresis. Also has a history of diabetes and was admitted for DKA last year. Also history of bipolar disease, opiate dependence and hypertension. He is tachycardic as well as hypertensive. He states that his symptoms began today. He denies cardiac history. REVIEW OF SYSTEMS: Constitutional: denies: chills, fever, recent illness, recent injury EENTM: denies: blurred vision, double vision, nose congestion Respiratory: See HPI Cardiac: denies: chest pain, irregular heart rate, lightheadedness, palpitations Gastrointestinal/Abdominal: denies: abdominal pain, diarrhea, nausea, vomiting, blood streaked stools Genitourinary: denies: dysuria, frequency, hematuria, pain Musculoskeletal: denies: joint pain, muscle pain Skin: denies: lesions, rash, jaundice, bruising Neurological: denies: headache, numbness, paresthesia, tingling, dizziness, weakness Hematologic/Lymphatic: denies: blood clots, easy bleeding, easy bruising Immunologic/allergic: denies: HIV/AIDS, transplant EXAM: GENERAL: Well-appearing, well-nourished and in no acute distress. HEAD: Atraumatic, normocephalic. EYES: Pupils equal round and reactive to light, extraocular movements intact, sclera anicteric, conjunctiva are normal. ENT: TMs normal, nares patent, oropharynx clear without exudates. Moist mucous membranes. NECK: Normal range of motion, supple without lymphadenopathy or JVD. LUNGS: Breath sounds clear to auscultation bilaterally and equal. No wheezes rales or rhonchi. HEART: Regular rate and rhythm without murmurs, rubs or gallops. ABDOMEN: Soft, nontender, normoactive bowel sounds. No guarding, no rebound. No masses appreciated. BACK: No CVA tenderness, no spinal tenderness, step-offs or deformities EXTREMITIES: Normal range of motion, no pitting or edema. No clubbing or cyanosis. NEUROLOGICAL: Cranial nerves II through XII grossly intact. Normal speech, normal gait. 5/5 strength, normal movement in all extremities, normal sensation PSYCH: Normal mood, normal affect. SKIN: Warm, dry, normal turgor, no visible rashes or lesions. Source: Patient, EMS Exam Limitations: No limitations - Personal History Tetanus Vaccine Date: 2013 - Medical/Surgical History Hx Asthma: No Hx Chronic Respiratory Disease: No Hx Diabetes: Yes Hx Cardiac Disease: No Hx Renal Disease: No Hx Cirrhosis: No Hx Alcoholism: No Hx HIV/AIDS: No Hx Splenectomy or Spleen Trauma: No Other PMH: PMH: DIABETES,KIDNEY STONES, GERD, PNA WITH MRSA, EMPYEMA - Family History Significant Family History: No pertinent family hx - Social History Smoking Status: Former smoker Drug Use: Other Constitutional: Initial Vital Signs Temperature (C) 37 C 12/05/16 14:21 Heart Rate 111 H 12/05/16 14:21 Respiratory Rate 24 H 12/05/16 14:21 Blood Pressure 117/79 12/05/16 14:21 O2 Sat (%) 88 L 12/05/16 14:21 O2 Delivery Mode Room Air Allergies/Adverse Reactions: Sulfa (Sulfonamide Antibiotics) [Sulfa(Sulfonamide Antibiotics)] Allergy (Severe , Verified 10/09/16 12:14) Anaphylaxis DILIP Inhibitors Allergy (Verified 11/04/16 04:23) Home Medications: Medication Instructions Recorded Ibuprofen [Motrin (*)] 800 mg PO BID PRN #30 tab 10/12/16 Ipratropium [Atrovent Hfa (*)] 2 puffs IH Q4 PRN #1 mdi 10/12/16 LORazepam [Ativan (*)] 2 mg PO DAILY PRN #28 tab 10/12/16 clonIDINE [Catapres (*)] 0.2 mg PO TID #42 tab 10/12/16 Guaifenesin [Guaifenesin ER] 600 mg PO BID #7 tab.er.12h 11/04/16 Amphet Asp and D/Amphet [Adderall 20 mg PO BID@08,12 12/05/16 20 mg (*)] Oxycodone HCl 20 mg PO BID PRN 12/05/16 Medical Decision Making - Diagnostics EKG Interpretation: An EKG obtained and was read and documented in trace view. Please see trace view for full reading and report. Sinus tachycardia, no acute ischemic changes , similar to previous Imaging: Imaging Impressions Chest X-Ray 12/05/16 14:11 Impression: Multilobar right-sided pneumonia.. ED Course/Re-evaluation: The patient has a right-sided multilobar pneumonia. I will start him on antibiotics. He is mildly tachycardic and borderline hypotensive but does not meet criteria for severe sepsis or septic shock. He has been given a L fluid bolus and I will give him another liter. He had MRSA empyema last time so I will start vancomycin. The patient had taken his on oxygen off and was standing up fitting. He is very anxious. He denies any recent drug abuse or withdrawal. I will give him a dose of Ativan and will monitor his vitals closely. I have paged the hospitalist for admission. 3:25 p.m. I spoke with Dr. Bullock who is familiar with the patient. He accepted admission and agrees with antibiotic selection and fluid management. Differential Diagnosis: Partial list of the Differential diagnosis considered include but were not limited to; pneumonia, PE, effusion and although unlikely based on the history and physical exam, I also considered acute coronary disease, pneumothorax, dissection, aneurysm. Critical Care Time: Critical care time spent by me, Dr. Davis exclusive with this patient was 35 minutes, exclusive of the PA time exclusive of procedures. The organ system that was at risk was pulmonary and I gave IV fluids, antibiotics, consultations to prevent worsening of the patient's condition - Data Points Laboratory Results: Laboratory Results 12/05/16 14:15 12/05/16 14:15 12/05/16 12/05/16 12/05/16 14:15 14:15 14:15 WBC 10.68 10^3/uL H 10^3/uL (3.80-9.50) RBC 4.29 10^6/uL L 10^6/uL (4.40-6.38) Hgb 13.0 g/dL L g/dL (13.7-17.5) Hct 37.3 % L % (40.0-51.0) MCV 86.9 fL fL (81.5-99.8) MCH 30.3 pg pg (27.9-34.1) MCHC 34.9 g/dL g/dL (32.4-36.7) RDW 12.5 % % (11.5-15.2) Plt Count 333 10^3/uL 10^3/uL (150-400) MPV 9.0 fL fL (8.7-11.7) Neut % (Auto) [employer] Lymph % (Auto) [employer] [place] % (Auto) [employer] Eos % (Auto) [employer] Baso % (Auto) [employer] Nucleat RBC Rel Count 0.0 % % (0.0-0.2) Absolute Neuts (auto) [employer] Absolute Lymphs (auto) [employer] Absolute Monos (auto) [employer] Absolute Eos (auto) [employer] Absolute Basos (auto) [employer] Absolute Nucleated RBC 0.00 10^3/uL 10^3/uL (0-0.01) Immature Gran % [employer] Seg Neutrophils % 60 % % Band Neutrophils % 3 % % Lymphocytes % 27 % % Monocytes % 9 % % Eosinophils % 1 % % Immature Gran # [employer] Absolute Seg Neuts 6.41 10^/uL 10^/uL (1.70-6.50) Absolute Band Neuts 0.32 10^3/uL 10^3/uL (0.00-0.70) Absolute Lymphocytes 2.88 10^3/uL 10^3/uL (1.00-3.00) Absolute Monocytes 0.96 10^3/uL H 10^3/uL (0.30-0.80) Absolute Eosinophils 0.11 10^3/uL 10^3/uL (0.03-0.40) Atypical Lymphocytes 2+ H Platelet Estimate ADEQUATE (ADEQ) Microcytic Cells 1+ H Smear Review By Shayna BEASLEY MD PT 12.9 SEC SEC (12.0-15.0) INR 0.98 (0.83-1.16) APTT 29.2 SEC SEC (23.0-38.0) VBG Lactic Acid Sodium 138 mEq/L mEq/L (134-144) Potassium 4.6 mEq/L mEq/L (3.5-5.2) Chloride 100 mEq/L mEq/L (97-110) Carbon Dioxide 25 mEq/l mEq/l (22-31) Anion Gap 13 mEq/L mEq/L (8-16) BUN 14 mg/dL mg/dL (7-23) Creatinine 0.8 mg/dL mg/dL (0.7-1.3) Estimated GFR > 60 Glucose 95 mg/dL mg/dL (70-100) Calcium 9.6 mg/dL mg/dL (8.5-10.4) Phosphorus 4.4 mg/dL mg/dL (2.5-4.5) Magnesium 1.6 mg/dL mg/dL (1.6-2.3) Total Bilirubin 0.6 mg/dL mg/dL (0.1-1.4) 12/05/16 14:15 WBC RBC Hgb Hct MCV MCH MCHC RDW Plt Count MPV Neut % (Auto) Lymph % (Auto) [place] % (Auto) Eos % (Auto) Baso % (Auto) Nucleat RBC Rel Count Absolute Neuts (auto) Absolute Lymphs (auto) Absolute Monos (auto) Absolute Eos (auto) Absolute Basos (auto) Absolute Nucleated RBC Immature Gran % Seg Neutrophils % Band Neutrophils % Lymphocytes % Monocytes % Eosinophils % Immature Gran # Absolute Seg Neuts Absolute Band Neuts Absolute Lymphocytes Absolute Monocytes Absolute Eosinophils Atypical Lymphocytes Platelet Estimate Microcytic Cells Smear Review By PT INR APTT VBG Lactic Acid 1.2 mmol/L mmol/L (0.7-2.1) Sodium Potassium Chloride Carbon Dioxide Anion Gap BUN Creatinine Estimated GFR Glucose Calcium Phosphorus Magnesium Total Bilirubin Medications Given: Discontinued Medications Sodium Chloride (Ns) 1,000 mls @ 0 mls/hr IV ONCE ONE PRN Reason: Wide Open Stop: 12/05/16 14:07 Last Admin: 12/05/16 14:16 Dose: 1,000 mls Sodium Chloride (Ns) 1,000 mls @ 0 mls/hr IV ONCE ONE PRN Reason: Wide Open Stop: 12/05/16 15:18 Last Admin: 12/05/16 15:43 Dose: 1,000 mls Lorazepam (Ativan Injection) 1 mg IVP EDNOW ONE Stop: 12/05/16 15:23 Last Admin: 12/05/16 15:43 Dose: 1 mg Departure - Departure Disposition: [facility] Clinical Impression: Pneumonia Qualifiers: Pneumonia type: due to unspecified organism Laterality: right Lung location: unspecified part of lung Qualified Code(s): J18.9 - Pneumonia, unspecified organism Condition: Fair
[2016-12-05 14:37] LABS: ADD MORPH? NO; ADD SCAN? YES; ATYPICAL LYMPHOCYTE FLAG 110 (0-99); FRAGMENT RBC FLAG 0 (0-99); HEMATOCRIT 37.3 % (40.0-51.0); LEFT SHIFT FLG 10 (0-99); LIPEMIA HEMOLYSIS FLAG 90 (0-99); MEAN CELL HEMOGLOBIN 30.3 pg (27.9-34.1); MEAN CELL HEMOGLOBIN CONCENTR. 34.9 g/dL (32.4-36.7); MEAN CELL VOLUME 86.9 fL (81.5-99.8); PLATELET CLUMPS FLAG 0 (0-99); PLATELET COUNT 333 10^3/uL (150-400); RED BLOOD CELL COUNT 4.29 10^6/uL (4.40-6.38); RED CELL DISTRIBUTION WIDTH 12.5 % (11.5-15.2)
--- NOTE | 2016-12-05 14:39 | CPEKG ---
Heart Rate: 116 RR Interval: 517 P-R Interval: 160 QRSD Interval: 100 QT Interval: 340 QTC Interval: 473 P [place]: 60 QRS [place]: 57 T Wave [place]: 54 EKG Severity - BORDERLINE ECG - EKG Impression: SINUS TACHYCARDIA EKG Impression: PROBABLE LEFT ATRIAL ABNORMALITY EKG Impression: BORDERLINE T WAVE ABNORMALITIES Electronically Signed By: Mustapha Davis 05-Dec-2016 15:00:34
[2016-12-05 14:48] LABS: INR 0.98 (0.83-1.16); PROTIME(PATIENT) 12.9 SEC (12.0-15.0)
[2016-12-05 14:49] LABS: APTT 29.2 SEC (23.0-38.0)
[2016-12-05 14:51] LABS: ANION GAP 13 mEq/L (8-16); BILIRUBIN,TOTAL 0.6 mg/dL (0.1-1.4); CALCIUM 9.6 mg/dL (8.5-10.4); CARBON DIOXIDE 25 mEq/l (22-31); CHLORIDE 100 mEq/L (97-110); CREATININE 0.8 mg/dL (0.7-1.3); GLOMERULAR FILTRATION RATE > 60; GLUCOSE 95 mg/dL (70-100); MAGNESIUM 1.6 mg/dL (1.6-2.3); POTASSIUM 4.6 mEq/L (3.5-5.2); SODIUM 138 mEq/L (134-144)
[2016-12-05 15:10] LABS: ADD DIFF? YES; SCAN POSITIVE
[2016-12-05 15:16] LABS: PLATELET ESTIMATE ADEQUATE (ADEQ)
[2016-12-05 15:17] LABS: MICROCYTES 1+
[2016-12-05] MEDS ORDERED: LORazepam 2 MG/ML INJ IVP ONE (15:22)
[2016-12-05] MEDS ORDERED: ONDANSETRON 4 MG/2 ML VIAL IVP PRN (16:31)
[2016-12-05] MEDS ORDERED: LORazepam 2 MG/ML INJ IVP PRN (16:31)
[2016-12-05] MEDS ORDERED: ONDANSETRON DISINTEGRATING 4 MG TAB PO PRN (16:31)
[2016-12-05] MEDS ORDERED: ACETAMINOPHEN 325 MG TAB PO PRN (16:31)
[2016-12-05] MEDS ORDERED: D50W 25 GM/50 ML SYR IVP PRN (16:36)
[2016-12-05] MEDS: VANCOMYCIN HCL/NORMAL SALINE 250 ML IV SCH (17:06)
[2016-12-05] MEDS: NS 1,000 ML IV SCH (17:06)
[2016-12-05] MEDS: CEFEPIME HCL 2 GM in D5W 100 ML IV SCH ×2 (17:12→23:15)
--- NOTE | 2016-12-05 17:12 | GHP ---
[f rep st] HISTORY AND PHYSICAL DATE OF ADMISSION: 12/05/2016 CHIEF COMPLAINT: Shortness of breath. HISTORY OF PRESENT ILLNESS: This is a 46-year-old man with a history of bipolar, as well as MRSA em pyema, which required VATS, presents with dyspnea. When I am seeing him, he is actually quite obtun ded. He did receive a milligram of Ativan IV prior to which he was quite agitated. He is somnolent , not really arousable, though he is protecting his airway, with stable vitals when I see him. Hist ory is obtained through the chart because of this. He was brought in by EMS today. He was 88% on r oom air. He did not have any fevers. He does have a history of diabetes. He was notably admitted here 2 months ago, treated for community-acquired pneumonia, with improvement in his symptoms at [facility]. PAST MEDICAL HISTORY: 1. Diabetes mellitus, type 1. 2. GERD. 3. Psychiatric history of bipolar depression, with psychotic features, prior suicide attempt, opiat e abuse, pneumonia, hyponatremia, ADHD. PAST SURGICAL HISTORY: VATS. MEDICATIONS: Please see medication reconciliation. ALLERGIES: Sulfa and DILIP inhibitors. FAMILY HISTORY: Not pertinent. SOCIAL HISTORY: He is a former smoker. He has been homeless in the past. He has a history of opia te abuse and withdrawal. Unsure of his current living situation. REVIEW OF SYSTEMS: This is unobtainable, given his current mental status. PHYSICAL EXAMINATION: VITAL SIGNS: Blood pressure 105/53, heart rate 101, respiration rate 20, sat urating 93% on 4 L, initially 88% on room air, temperature is 37. GENERAL: The patient is a man wh o appears comfortable, sleeping in bed. HEENT: Shows him to be normocephalic, atraumatic. CARDIOV ASCULAR: Exam shows a regular rate and rhythm. No murmurs, rubs, or gallops. PULMONARY: Exam jose cruz ws him to have rhonchorous lung sounds on the right. He does not appear to be in any respiratory di stress. SKIN: Exam showed no rash. : Exam showed no Benedict. NEUROLOGIC: Exam shows him to be obtunded. He is not waking up. He does appear to be moving all extremities. Per nurse, he actuall y ambulated from the stretcher to the bed. PSYCHIATRIC: Exam is unobtainable. LABS: White count is 10.6. Basic metabolic panel is normal. DATA: 1. I discussed this with Dr. Davis. We will plan to admit to the step-down unit. 2. EKG, which I personally reviewed and interpreted, shows mild T-wave inversions in V5 and V6. 3. Chest x-ray, which I personally reviewed and interpreted, and compared to old, shows new focal o pacities on the right side consistent with multilobar pneumonia. IMPRESSION AND PLAN: A 46-year-old man with pneumonia, recurrent. 1. Recurrent pneumonia: This is right-sided. He has a history of a methicillin-resistant Staphylo coccus aureus empyema. Because he failed community-acquired treatment 2 months ago, I will give him vancomycin and cefepime. These have been ordered. I have also ordered an Infectious Disease consu lt. Check influenza, as well as sputum culture and blood cultures. 2. Encephalopathy: Suspect that this is due to Ativan. He was quite agitated earlier in the emerg ency department. He is protecting his airway. We will follow this for resolution, if not, we will work up further. 3. History of psychiatric disorder: He has bipolar, posttraumatic stress disorder. He has had psy chotic features in the past. We will start his psychiatric medications when these are available. 4. Diabetes mellitus, type 1: We will restart his home insulin when available. For now, we will c heck his glucoses, and give him low-dose sliding scale. 5. Gastroesophageal reflux disease: Proton-pump inhibitor. 6. We will empirically make him full code. 7. Venous thromboembolism risk: He is low risk, given his age; however, if he is nonambulatory, wo uld start DVT prophylaxis. /[id number]/MODL
[2016-12-05] MEDS: INSULIN LISPRO 100 UNIT/ML SC SCH (17:26)
[2016-12-05] MEDS ORDERED: IPRATROPIUM HFA INHALER IH PRN (20:47)
[2016-12-05] MEDS ORDERED: CEFEPIME HCL 2 GM in D5W 100 ML IV SCH (22:00)
[2016-12-05] MEDS: IPRATROPIUM/ALBUTEROL 3 ML DEYVIAL IH SCH (22:13)
[2016-12-05] MEDS: guaiFENesin 600 MG TAB.ER PO SCH (23:15)
[2016-12-06] MEDS: VANCOMYCIN HCL/NORMAL SALINE 250 ML IV SCH ×2 (01:57→08:32)
[2016-12-06] MEDS: IPRATROPIUM/ALBUTEROL 3 ML DEYVIAL IH SCH ×4 (04:58→20:16)
[2016-12-06] MEDS: CEFEPIME HCL 2 GM in D5W 100 ML IV SCH ×2 (06:01→14:05)
[2016-12-06] MEDS: NS 1,000 ML IV SCH ×2 (06:02→21:02)
[2016-12-06 06:26] LABS: % IMMATURE GRANULYOCYTES 0.2 % (0.0-1.1); ABSOLUTE IMMATURE GRANULOCYTES 0.01 10^3/uL (0.00-0.10); ADD DIFF? NO; ADD MORPH? NO; ADD SCAN? YES; FRAGMENT RBC FLAG 0 (0-99); HEMATOCRIT 34.2 % (40.0-51.0); HEMOGLOBIN 11.9 g/dL (13.7-17.5); LEFT SHIFT FLG 0 (0-99); LIPEMIA HEMOLYSIS FLAG 90 (0-99); MEAN CELL HEMOGLOBIN 29.9 pg (27.9-34.1); MEAN CELL HEMOGLOBIN CONCENTR. 34.8 g/dL (32.4-36.7); MEAN CELL VOLUME 85.9 fL (81.5-99.8); MEAN PLATELET VOLUME 8.9 fL (8.7-11.7); PLATELET CLUMPS FLAG 10 (0-99); PLATELET COUNT 321 10^3/uL (150-400); RED BLOOD CELL COUNT 3.98 10^6/uL (4.40-6.38); RED CELL DISTRIBUTION WIDTH 12.6 % (11.5-15.2)
[2016-12-06 06:30] LABS: ATYPICAL LYMPHOCYTE FLAG 120 (0-99)
[2016-12-06 06:42] LABS: ALANINE AMINOTRANSFERASE 29 IU/L (21-72); ALKALINE PHOSPHATASE 71 IU/L (38-126); ANION GAP 9 mEq/L (8-16); ASPARTATE AMINOTRANSFERASE 25 IU/L (17-59); BILIRUBIN,TOTAL 0.5 mg/dL (0.1-1.4); CALCIUM 8.5 mg/dL (8.5-10.4); CARBON DIOXIDE 25 mEq/l (22-31); CHLORIDE 102 mEq/L (97-110); CREATININE 0.6 mg/dL (0.7-1.3); GLOMERULAR FILTRATION RATE > 60; GLUCOSE 386 mg/dL (70-100); POTASSIUM 4.2 mEq/L (3.5-5.2); SODIUM 136 mEq/L (134-144); TOTAL PROTEIN 5.8 g/dL (6.3-8.2)
[2016-12-06 07:03] LABS: SCAN POSITIVE
[2016-12-06 07:07] LABS: PLATELET ESTIMATE ADEQUATE (ADEQ)
--- NOTE | 2016-12-06 08:18 | HOSPPROG ---
Hospitalist Progress Note Assessment/Plan: #Concern for Recurrent PNA/h/o MRSA empyema -cont Vanc, Cefepime for now -ID to evaluate #Bipolar d/o: cont home medications #Acute hypoxemic resp failure: due to PNA, Now resolved. Influenza negative #Acute encephalopathy: dosed Ativan in ED. Resolved #Uncontrolled DM 1: reports sugars being up recently; likely due to infection. Resume home insulin, SSI #Diet: diabetic #DVT ppx: ambulating #Disp: transfer to med-surg. Subjective: cough this morning with brown/yellow sputum Objective: Vital Signs Temp Pulse Resp BP Pulse Ox 36.5 C 75 19 109/80 92 12/06/16 07:59 12/06/16 07:59 12/06/16 07:59 12/06/16 07:59 12/06/16 07:59 Laboratory Results 12/06/16 06:05 12/06/16 06:05 12/05/16 12/06/16 12/07/16 05:59 05:59 05:59 Intake Total 2252 Output Total 2925 Balance -673 PT 12.9 SEC (12.0-15.0) 12/05/16 14:15 INR 0.98 (0.83-1.16) 12/05/16 14:15 - Physical Exam Constitutional: no apparent distress Eyes: PERRL Ears, Nose, Mouth, Throat: moist mucous membranes Cardiovascular: regular rate and rhythym Respiratory: rhonchi Gastrointestinal: normoactive bowel sounds, soft, non-tender abdomen Genitourinary: no bladder fullness Skin: warm Musculoskeletal: full muscle strength Neurologic: AAOx3 Psychiatric: interacting appropriately Lymph, Heme, Immunologic: no cervical LAD ICD10 Worksheet Patient Problems: Problems Problem Status Onset Bipolar affective disorder, current episode depression Active Diabetes mellitus type 2 Active Hyperglycemia Acute Left lower lobe pneumonia Acute DKA (diabetic ketoacidoses) Acute Bronchospasm Acute MRSA (methicillin resistant Staphylococcus aureus) Acute 10/30/15 Empyema of left pleural space Acute Pneumonia Acute Pneumonia Acute
[2016-12-06] MEDS: ADDERALL 20 MG TAB PO SCH ×2 (08:28→12:12)
[2016-12-06] MEDS: INSULIN LISPRO 100 UNIT/ML SC SCH ×3 (08:29→17:06)
[2016-12-06] MEDS: guaiFENesin 600 MG TAB.ER PO SCH ×2 (08:32→21:01)
[2016-12-06] MEDS: oxyCODONE IR 5 MG TAB PO PRN ×2 (12:22→21:01)
[2016-12-06] MEDS: AZITHROMYCIN 250 MG TAB PO SCH (16:18)
[2016-12-06] MEDS: INSULIN NPH HUMAN 100 UNITS/ML SYRINGE SC SCH (17:05)
--- NOTE | 2016-12-06 17:41 | PCMIDPN ---
Assessment/Plan: Assessment: Right-sided pneumonia. Appears to be community-acquired pneumonia. Currently on vancomycin and cefepime. Discussed case with Dr. Morrow. Comfortable with changing to IV ceftriaxone and azithromycin. 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 However this infiltrate does not have the appearance of consolidating staphylococcal disease. Plan: 1. Discontinue both vancomycin and cefepime. 2. Start ceftriaxone and azithromycin. 3. Follow clinical improvement. 12/06/16 17:37 Subjective: Patient is resting comfortably in his hospital bed. No significant overnight events. Oxygenation is stable on room air. Objective: Vancomycin # 1 Cefepime # 1 Vital Signs Temp Pulse Resp BP Pulse Ox 36.8 C 86 20 133/86 H 88 L 12/06/16 16:00 12/06/16 16:00 12/06/16 16:00 12/06/16 16:00 12/06/16 16:00 Laboratory Results 12/06/16 06:05 12/06/16 06:05 12/05/16 12/06/16 12/07/16 05:59 05:59 05:59 Intake Total 2252 1450 Output Total 2925 1275 Balance -673 175 - Physical Exam General Appearance: WD/WN, alert, no apparent distress, non-toxic Respiratory: normal breath sounds, crackles (Right side), No lungs clear Cardiac/Chest: regular rate, rhythm, No tachycardia Skin: normal color, warm/dry, No rash Neuro/Psych: alert, normal mood/affect, oriented x 3 ICD10 Worksheet Patient Problems: Problems Problem Status Onset Pneumonia Acute Bipolar affective disorder, current episode depression Active Diabetes mellitus type 2 Active Bronchospasm Acute DKA (diabetic ketoacidoses) Acute Empyema of left pleural space Acute Hyperglycemia Acute Left lower lobe pneumonia Acute MRSA (methicillin resistant Staphylococcus aureus) Acute 10/30/15 Pneumonia Acute
[2016-12-06] MEDS: LORazepam 1 MG TAB PO PRN (21:02)
[2016-12-07 05:04] LABS: HEMATOCRIT 36.7 % (40.0-51.0); HEMOGLOBIN 12.6 g/dL (13.7-17.5); MEAN CELL HEMOGLOBIN CONCENTR. 34.3 g/dL (32.4-36.7); MEAN CELL VOLUME 87.4 fL (81.5-99.8); RED BLOOD CELL COUNT 4.2 10^6/uL (4.40-6.38); RED CELL DISTRIBUTION WIDTH 12.3 % (11.5-15.2)
[2016-12-07 05:20] LABS: ANION GAP 9 mEq/L (8-16); CARBON DIOXIDE 24 mEq/l (22-31); CHLORIDE 102 mEq/L (97-110); CREATININE 0.5 mg/dL (0.7-1.3); GLOMERULAR FILTRATION RATE > 60; GLUCOSE 175 mg/dL (70-100); POTASSIUM 4.2 mEq/L (3.5-5.2); SODIUM 135 mEq/L (134-144)
[2016-12-07] MEDS: IPRATROPIUM/ALBUTEROL 3 ML DEYVIAL IH SCH ×4 (05:45→21:05)
[2016-12-07] MEDS: NS 1,000 ML IV SCH (07:34)
[2016-12-07] MEDS: ADDERALL 20 MG TAB PO SCH ×2 (08:48→12:38)
[2016-12-07] MEDS: INSULIN LISPRO 100 UNIT/ML SC SCH ×3 (08:48→18:14)
[2016-12-07] MEDS: AZITHROMYCIN 250 MG TAB PO SCH (08:49)
[2016-12-07] MEDS: guaiFENesin 600 MG TAB.ER PO SCH ×2 (08:49→20:35)
[2016-12-07] MEDS: INSULIN NPH HUMAN 100 UNITS/ML SYRINGE SC SCH ×2 (09:29→18:14)
--- NOTE | 2016-12-07 12:56 | HOSPPROG ---
Hospitalist Progress Note Assessment/Plan: #CAP (h/o MRSA empyema) -hospitalized at [facility], cultures then with H. Influenca -cont CTX, Azithro one more day per ID and DC if clinically stable tomorrow #Bipolar d/o: cont home medications #Acute hypoxemic resp failure: resolved. Due to PNA, Now resolved. Influenza negative #Acute encephalopathy: dosed Ativan in ED. Resolved #Uncontrolled DM 1: reports sugars being up recently; likely due to infection. Resume home insulin, SSI #Diet: diabetic #DVT ppx: ambulating #Disp: can likely DC tomorrow Subjective: hypoxic overnight Objective: Vital Signs Temp Pulse Resp BP Pulse Ox 36.7 C 88 18 136/91 H 91 L 12/07/16 08:13 12/07/16 11:03 12/07/16 11:03 12/07/16 08:55 12/07/16 11:03 Laboratory Results 12/07/16 04:38 12/07/16 04:38 12/06/16 12/07/16 12/08/16 05:59 05:59 05:59 Intake Total 2252 1450 1940 Output Total 2925 1275 2220 Balance -673 175 -280 PT 12.9 SEC (12.0-15.0) 12/05/16 14:15 INR 0.98 (0.83-1.16) 12/05/16 14:15 - Physical Exam Constitutional: no apparent distress Eyes: PERRL Ears, Nose, Mouth, Throat: moist mucous membranes Cardiovascular: regular rate and rhythym Respiratory: reduced air movement, expiratory wheeze, rhonchi Gastrointestinal: normoactive bowel sounds, soft, non-tender abdomen Genitourinary: no bladder fullness Skin: warm Musculoskeletal: full muscle strength Neurologic: AAOx3 Psychiatric: interacting appropriately ICD10 Worksheet Patient Problems: Problems Problem Status Onset Pneumonia Acute Bipolar affective disorder, current episode depression Active Diabetes mellitus type 2 Active Bronchospasm Acute DKA (diabetic ketoacidoses) Acute Empyema of left pleural space Acute Hyperglycemia Acute Left lower lobe pneumonia Acute MRSA (methicillin resistant Staphylococcus aureus) Acute 10/30/15 Pneumonia Acute
--- NOTE | 2016-12-07 15:48 | PCMIDPN ---
Assessment/Plan: Assessment: Right-sided pneumonia. Appears to be community-acquired pneumonia. Currently on ceftriaxone and azithromycin. Patient had recent isolate of Haemophilus influenzae at [facility] in [place]. This isolate was not beta lactamase positive. Plan: 1. Continue both ceftriaxone and azithromycin. 2. Follow clinical improvement. 12/06/16 17:37 12/07/16 15:45 Subjective: Patient is resting comfortably in his hospital room. He denies any new complaint. Has only been here 2 days so states that he has not felt significant improvement yet. However he is coughing less. No fevers or chills. Objective: Ceftriaxone # 1 Azithromycin # 1 Vital Signs Antibiotics # 2 Temp Pulse Resp BP Pulse Ox 36.7 C 88 18 136/91 H 91 L 12/07/16 08:13 12/07/16 11:03 12/07/16 11:03 12/07/16 08:55 12/07/16 11:03 Laboratory Results 12/07/16 04:38 12/07/16 04:38 12/06/16 12/07/16 12/08/16 05:59 05:59 05:59 Intake Total 2252 1450 1940 Output Total 2925 1275 2220 Balance -673 175 -280 - Physical Exam General Appearance: WD/WN, alert, no apparent distress, non-toxic Respiratory: No lungs clear, No normal breath sounds Cardiac/Chest: regular rate, rhythm, No tachycardia Skin: normal color, warm/dry, No rash Neuro/Psych: alert, normal mood/affect, oriented x 3 ICD10 Worksheet Patient Problems: Problems Problem Status Onset Pneumonia Acute Bipolar affective disorder, current episode depression Active Diabetes mellitus type 2 Active Bronchospasm Acute DKA (diabetic ketoacidoses) Acute Empyema of left pleural space Acute Hyperglycemia Acute Left lower lobe pneumonia Acute MRSA (methicillin resistant Staphylococcus aureus) Acute 10/30/15 Pneumonia Acute
[2016-12-07] MEDS: LORazepam 1 MG TAB PO PRN (16:32)
[2016-12-07] MEDS: oxyCODONE IR 5 MG TAB PO PRN ×2 (16:33→20:35)
[2016-12-08] MEDS: oxyCODONE IR 5 MG TAB PO PRN ×5 (01:39→17:13)
[2016-12-08] MEDS: IPRATROPIUM/ALBUTEROL 3 ML DEYVIAL IH SCH ×4 (05:11→21:07)
[2016-12-08] MEDS: LORazepam 1 MG TAB PO PRN (06:02)
[2016-12-08 06:10] LABS: ANION GAP 14 mEq/L (8-16); CALCIUM 9.5 mg/dL (8.5-10.4); CARBON DIOXIDE 26 mEq/l (22-31); CHLORIDE 99 mEq/L (97-110); CREATININE 0.6 mg/dL (0.7-1.3); GLOMERULAR FILTRATION RATE > 60; GLUCOSE 57 mg/dL (70-100); POTASSIUM 4.6 mEq/L (3.5-5.2); SODIUM 139 mEq/L (134-144)
[2016-12-08] MEDS: ADDERALL 20 MG TAB PO SCH ×2 (08:48→13:02)
[2016-12-08] MEDS: AZITHROMYCIN 250 MG TAB PO SCH (08:51)
[2016-12-08] MEDS: guaiFENesin 600 MG TAB.ER PO SCH ×2 (08:56→21:30)
[2016-12-08] MEDS: INSULIN NPH HUMAN 100 UNITS/ML SYRINGE SC SCH ×2 (08:56→18:27)
[2016-12-08] MEDS: predniSONE 20 MG TAB PO SCH (13:00)
[2016-12-08] MEDS: INSULIN LISPRO 100 UNIT/ML SC SCH ×3 (13:01→17:05)
--- NOTE | 2016-12-08 14:23 | HOSPPROG ---
Hospitalist Progress Note Assessment/Plan: 46y male with c/o SOB. This is my first encounter with the pt. Chart reviewed. D /W Dr Wayne. #CAP (h/o MRSA empyema) -hospitalized at [facility], cultures then with H. Influenza -cont CTX, Azithro #Wheezing -start prednisone -still feels SOB and hard to breath #Bipolar d/o: cont home medications #Acute hypoxemic resp failure: resolved. Due to PNA, Now resolved. Influenza negative #Acute encephalopathy: dosed Ativan in ED. Resolved #Uncontrolled DM 1: reports sugars being up recently; likely due to infection. Resume home insulin, SSI watch closely while on prednisone #Diet: diabetic #DVT ppx: ambulating #Disp: can likely DC tomorrow Subjective: Feeling better but very SOB, tight chest when breathing. Doesn't feel able to go home. Objective: Vital Signs Temp Pulse Resp BP Pulse Ox 36.3 C 83 18 125/85 H 88 L 12/08/16 08:00 12/08/16 09:17 12/08/16 09:17 12/08/16 08:51 12/08/16 09:17 Laboratory Results 12/07/16 04:38 12/08/16 06:00 12/07/16 12/08/16 12/09/16 05:59 05:59 05:59 Intake Total 1450 1940 Output Total 1275 2220 Balance 175 -280 PT 12.9 SEC (12.0-15.0) 12/05/16 14:15 INR 0.98 (0.83-1.16) 12/05/16 14:15 - Physical Exam Constitutional: no apparent distress, not in pain, chronically ill appearing Eyes: PERRL, anicteric sclera, EOMI Ears, Nose, Mouth, Throat: moist mucous membranes, hearing normal, ears appear normal Cardiovascular: No JVD, No tachycardia, No edema Respiratory: no respiratory distress, reduced air movement, expiratory wheeze Gastrointestinal: No tenderness, No ascites, No guarding Skin: warm, normal color, No erythema Musculoskeletal: normal joint ROM, no joint effusions, generalized weakness Neurologic: AAOx3 Psychiatric: not encephalopathic, thought process linear, anxious, poor insight ICD10 Worksheet Patient Problems: Problems Problem Status Onset Bipolar affective disorder, current episode depression Active Diabetes mellitus type 2 Active Hyperglycemia Acute Left lower lobe pneumonia Acute DKA (diabetic ketoacidoses) Acute Bronchospasm Acute MRSA (methicillin resistant Staphylococcus aureus) Acute 10/30/15 Empyema of left pleural space Acute Pneumonia Acute Pneumonia Acute
[2016-12-08] MEDS: IBUPROFEN 800 MG TAB PO PRN (17:06)
--- NOTE | 2016-12-08 18:05 | PCMIDPN ---
Assessment/Plan: Assessment: Right-sided pneumonia. He continues to not be clinically improved at present. Will continue on both ceftriaxone and azithromycin for a few more days. If no improvement then possible bronchoscopy for diagnosis. Patient had recent isolate of Haemophilus influenzae at [facility] in [place]. This isolate was not beta lactamase positive. Plan: 1. Continue both ceftriaxone and azithromycin. 2. Follow clinical improvement. Subjective: Patient is resting in his hospital room. He is in good spirits but states that he has not significantly improved from a respiratory status as of yet. No fevers or chills. Some shortness of breath with effort. Still occasional productive cough. Objective: Ceftriaxone #2 Azithromycin #2 Vital Signs Temp Pulse Resp BP Pulse Ox 37.1 C 99 16 149/101 H 88 L 12/08/16 16:00 12/08/16 16:15 12/08/16 16:15 12/08/16 17:14 12/08/16 16:15 Laboratory Results 12/07/16 04:38 12/08/16 06:00 12/07/16 12/08/16 12/09/16 05:59 05:59 05:59 Intake Total 1450 1940 Output Total 1275 2220 Balance 175 -280 - Physical Exam General Appearance: WD/WN, alert, no apparent distress, non-toxic Respiratory: lungs clear, normal breath sounds, No respiratory distress, No accessory muscle use, No stridor Cardiac/Chest: regular rate, rhythm, No tachycardia Extremities: non-tender, normal inspection Skin: normal color, warm/dry, No rash Neuro/Psych: alert, normal mood/affect, oriented x 3 ICD10 Worksheet Patient Problems: Problems Problem Status Onset Pneumonia Acute Bipolar affective disorder, current episode depression Active Diabetes mellitus type 2 Active Bronchospasm Acute DKA (diabetic ketoacidoses) Acute Empyema of left pleural space Acute Hyperglycemia Acute Left lower lobe pneumonia Acute MRSA (methicillin resistant Staphylococcus aureus) Acute 10/30/15 Pneumonia Acute
[2016-12-08] MEDS ORDERED: INSULIN LISPRO 100 UNIT/ML SC ONE (22:30)
[2016-12-09] MEDS: IPRATROPIUM/ALBUTEROL 3 ML DEYVIAL IH SCH ×4 (05:20→22:43)
--- NOTE | 2016-12-09 08:03 | HOSPPROG ---
Hospitalist Progress Note Assessment/Plan: Assessment/Plan: 46y male PMH T1DM, htn, bipolar, previous MRSA empyema requiring VATS presenting to [facility] 12/05/16 with c/o SOB and was also obtained. This is my first encounter with the pt. Chart reviewed. D/W Dr Wayne. #CAP (h/o MRSA empyema) -hospitalized at [facility], cultures then with H. Influenza -cont CTX, Azithro #Wheezing started prednisone still feels SOB and hard to breath ongoing breathing treatments/ will likely need to cont neb tx on d/c #Bipolar d/o: cont home medications #Acute hypoxemic resp failure: resolved. Due to PNA, Now resolved. Influenza negative satting 93% on RA #Acute encephalopathy: dosed Ativan in ED. Resolved #Uncontrolled DM 1: reports sugars being up recently; likely due to infection. Resume home insulin, SSI watch closely while on prednisone BS 328 this AM likely 2/2 Prednisone #Diet: diabetic #DVT ppx: ambulating #Disp: can likely DC tomorrow Subjective: Reports ongoing shortness of breath and feeling like he cannot move air. Dry cough. No f/c. Objective: Vital Signs Temp Pulse Resp BP Pulse Ox 98.8 F 71 18 131/93 H 93 12/09/16 07:39 12/09/16 07:39 12/09/16 07:39 12/09/16 07:39 12/09/16 07:39 Laboratory Results 12/07/16 04:38 12/08/16 06:00 12/08/16 12/09/16 12/10/16 05:59 05:59 05:59 Intake Total 1940 Output Total 2220 Balance -280 PT 12.9 SEC (12.0-15.0) 12/05/16 14:15 INR 0.98 (0.83-1.16) 12/05/16 14:15 - Pending Discharge Pending Discharge Within 24 Hours: Yes Pending Discharge Date: 12/10/16 Pending Discharge Time: 11:00 - Physical Exam Constitutional: no apparent distress, appears nourished Eyes: PERRL Ears, Nose, Mouth, Throat: moist mucous membranes Cardiovascular: regular rate and rhythym Respiratory: reduced air movement, expiratory wheeze, bronchial breath sounds Skin: warm, normal color Neurologic: AAOx3 Psychiatric: interacting appropriately, not anxious ICD10 Worksheet Patient Problems: Problems Problem Status Onset Pneumonia Acute Bipolar affective disorder, current episode depression Active Diabetes mellitus type 2 Active Bronchospasm Acute DKA (diabetic ketoacidoses) Acute Empyema of left pleural space Acute Hyperglycemia Acute Left lower lobe pneumonia Acute MRSA (methicillin resistant Staphylococcus aureus) Acute 10/30/15 Pneumonia Acute
[2016-12-09] MEDS: INSULIN NPH HUMAN 100 UNITS/ML SYRINGE SC SCH ×2 (08:16→18:26)
[2016-12-09] MEDS: AZITHROMYCIN 250 MG TAB PO SCH (08:17)
[2016-12-09] MEDS: predniSONE 20 MG TAB PO SCH (08:17)
[2016-12-09] MEDS: INSULIN LISPRO 100 UNIT/ML SC SCH ×3 (08:21→18:25)
[2016-12-09] MEDS: ADDERALL 20 MG TAB PO SCH ×2 (08:24→12:11)
[2016-12-09] MEDS: oxyCODONE IR 5 MG TAB PO PRN ×2 (08:26→18:27)
[2016-12-09] MEDS: IBUPROFEN 800 MG TAB PO PRN (08:29)
[2016-12-09] MEDS: guaiFENesin 600 MG TAB.ER PO SCH ×2 (10:03→20:48)
--- NOTE | 2016-12-09 12:28 | PCMIDPN ---
Assessment/Plan: Assessment: Right-sided pneumonia. Finally some good clinical improvement overnight. Patient feels that he is breathing much better. Much improvement in oxygen requirement. Will continue the ceftriaxone and azithromycin for another day. Likely if the improvement is prolonged we will change him over to oral antibiotics for discharge tomorrow. Plan: 1. Continue both ceftriaxone and azithromycin. 2. Follow clinical improvement. 12/09/16 15:24 Subjective: Patient states that he is feeling much better today than yesterday. Still with some cough although much decreased. Decreased oxygen needs. No fevers or chills. Objective: Ceftriaxone # 3 Azithromycin # 3 Vital Signs Temp Pulse Resp BP Pulse Ox 37.1 C 84 16 131/93 H 94 12/09/16 07:39 12/09/16 10:25 12/09/16 10:25 12/09/16 08:29 12/09/16 10:25 Laboratory Results 12/07/16 04:38 12/08/16 06:00 12/08/16 12/09/16 12/10/16 05:59 05:59 05:59 Intake Total 1940 Output Total 2220 Balance -280 - Physical Exam General Appearance: WD/WN, alert, no apparent distress, non-toxic Respiratory: lungs clear, normal breath sounds, No respiratory distress Cardiac/Chest: regular rate, rhythm, No tachycardia Extremities: non-tender, normal inspection Skin: normal color, warm/dry, No rash Neuro/Psych: alert, normal mood/affect, oriented x 3 ICD10 Worksheet Patient Problems: Problems Problem Status Onset Pneumonia Acute Bipolar affective disorder, current episode depression Active Diabetes mellitus type 2 Active Bronchospasm Acute DKA (diabetic ketoacidoses) Acute Empyema of left pleural space Acute Hyperglycemia Acute Left lower lobe pneumonia Acute MRSA (methicillin resistant Staphylococcus aureus) Acute 10/30/15 Pneumonia Acute
[2016-12-09] MEDS: LORazepam 1 MG TAB PO PRN (16:34)
[2016-12-09 18:35] LABS: GLUCOSE 473 mg/dL (70-100)
[2016-12-10] MEDS: IPRATROPIUM/ALBUTEROL 3 ML DEYVIAL IH SCH ×4 (05:32→20:54)
--- NOTE | 2016-12-10 07:56 | HOSPPROG ---
Hospitalist Progress Note Assessment/Plan: Mr Richard is a 46y male PMH T1DM, htn, bipolar, previous MRSA empyema requiring VATS presenting to [facility] 12/05/16 with c/o SOB and was also obtained. This is my first encounter with the pt. Chart reviewed. #CAP (h/o MRSA empyema)/ right sided pneumonia -hospitalized at [facility], cultures then with H. Influenza -cont CTX, Azithro -blood cx show no growth #Wheezing was started on prednisone wheezing has resolved/ with high glucoses, myrick stop prednisone #Bipolar d/o: cont home medications #Acute hypoxemic resp failure: resolved. Due to PNA, Now resolved. Influenza negative oxygen levels stable on room air #Acute encephalopathy: Resolved #Uncontrolled DM 1: reports sugars being up recently; likely due to infection. Resume home insulin, SSI watch closely while on prednisone #Diet: diabetic #DVT ppx: ambulating #Disp: pending/ glucoses are too elevated to safely dc #.Plan: patient doesn't have a PCP/ gave him a name for f/u care. Subjective: Will said he isn't feeling well enough for dc/ overall feels poorly. Objective: Vital Signs Temp Pulse Resp BP Pulse Ox 36.9 C 98 18 137/100 H 95 12/10/16 07:40 12/10/16 07:40 12/10/16 07:40 12/10/16 07:40 12/10/16 07:40 Laboratory Results 12/07/16 04:38 12/09/16 18:14 12/09/16 12/10/16 12/11/16 05:59 05:59 05:59 Intake Total 500 Balance 500 PT 12.9 SEC (12.0-15.0) 12/05/16 14:15 INR 0.98 (0.83-1.16) 12/05/16 14:15 - Physical Exam Constitutional: no apparent distress, appears nourished, not in pain Eyes: PERRL Ears, Nose, Mouth, Throat: hearing normal Cardiovascular: regular rate and rhythym Respiratory: no respiratory distress, no rales or rhonchi, No expiratory wheeze Gastrointestinal: normoactive bowel sounds Skin: warm, normal color Musculoskeletal: full muscle strength Neurologic: AAOx3 Psychiatric: interacting appropriately, not anxious ICD10 Worksheet Patient Problems: Problems Problem Status Onset Pneumonia Acute Bipolar affective disorder, current episode depression Active Diabetes mellitus type 2 Active Bronchospasm Acute DKA (diabetic ketoacidoses) Acute Empyema of left pleural space Acute Hyperglycemia Acute Left lower lobe pneumonia Acute MRSA (methicillin resistant Staphylococcus aureus) Acute 10/30/15 Pneumonia Acute
[2016-12-10] MEDS: oxyCODONE IR 5 MG TAB PO PRN ×4 (08:03→20:09)
[2016-12-10] MEDS: ADDERALL 20 MG TAB PO SCH ×2 (08:07→12:34)
[2016-12-10] MEDS: INSULIN NPH HUMAN 100 UNITS/ML SYRINGE SC SCH ×2 (08:07→16:57)
[2016-12-10] MEDS: AZITHROMYCIN 250 MG TAB PO SCH (08:07)
[2016-12-10] MEDS: guaiFENesin 600 MG TAB.ER PO SCH ×2 (08:07→20:09)
[2016-12-10] MEDS: INSULIN LISPRO 100 UNIT/ML SC SCH ×3 (08:28→16:52)
[2016-12-10 09:25] LABS: GLUCOSE 399 mg/dL (70-100)
[2016-12-10] MEDS: IBUPROFEN 800 MG TAB PO PRN (15:26)
--- NOTE | 2016-12-10 16:29 | PCMIDPN ---
Assessment/Plan: Assessment: Right-sided pneumonia. Continues to feel well. Will transition over to p.o. Augmentin 870 mg p.o. twice daily to complete a 10 day course upon discharge. Follow-up in office in 1 week time. Plan: 1. Continue both ceftriaxone and azithromycin. Transition over to oral Augmentin upon discharge 2. Follow clinical improvement. Subjective: Patient continues to feel much improved today. Decreased cough and no shortness of breath. Sugars are elevated secondary to the oral steroids. Objective: Ceftriaxone # 4 Azithromycin # 4 Vital Signs Temp Pulse Resp BP Pulse Ox 36.5 C 75 16 119/79 95 12/10/16 15:22 12/10/16 15:35 12/10/16 15:22 12/10/16 15:22 12/10/16 15:35 Laboratory Results 12/07/16 04:38 12/10/16 08:10 12/09/16 12/10/16 12/11/16 05:59 05:59 05:59 Intake Total 500 Balance 500 - Physical Exam General Appearance: WD/WN, alert, no apparent distress, non-toxic Respiratory: lungs clear, normal breath sounds, No respiratory distress Cardiac/Chest: regular rate, rhythm, No tachycardia Skin: normal color, warm/dry, No rash Neuro/Psych: alert, normal mood/affect, oriented x 3 ICD10 Worksheet Patient Problems: Problems Problem Status Onset Bipolar affective disorder, current episode depression Active Diabetes mellitus type 2 Active Hyperglycemia Acute Left lower lobe pneumonia Acute DKA (diabetic ketoacidoses) Acute Bronchospasm Acute MRSA (methicillin resistant Staphylococcus aureus) Acute 10/30/15 Empyema of left pleural space Acute Pneumonia Acute Pneumonia Acute
[2016-12-10] MEDS: LORazepam 1 MG TAB PO PRN (20:10)
[2016-12-11] MEDS: IPRATROPIUM/ALBUTEROL 3 ML DEYVIAL IH SCH ×2 (06:04→11:21)
[2016-12-11 06:06] VITALS: PULSE 80
[2016-12-11 07:43] VITALS: BP 127/94; RESP 19; TEMP 98; O2SAT 96
[2016-12-11] MEDS: oxyCODONE IR 5 MG TAB PO PRN ×2 (08:37→12:16)
[2016-12-11] MEDS: guaiFENesin 600 MG TAB.ER PO SCH (08:38)
[2016-12-11] MEDS: AZITHROMYCIN 250 MG TAB PO SCH (08:39)
[2016-12-11] MEDS: ADDERALL 20 MG TAB PO SCH ×2 (08:39→12:16)
[2016-12-11] MEDS: INSULIN LISPRO 100 UNIT/ML SC SCH (08:46)
--- NOTE | 2016-12-11 09:11 | HOSPPROG ---
Hospitalist Progress Note Assessment/Plan: Mr Richard is a 46y male PMH T1DM, htn, bipolar, previous MRSA empyema requiring VATS presenting to [facility] 12/05/16 with c/o SOB and was also obtained. #CAP (h/o MRSA empyema)/ right sided pneumonia -hospitalized at [facility], cultures then with H. Influenza -cont CTX, Azithro -blood cx show no growth -dc on augmentin bid x 10 days -f/u with Dr Wayne #Wheezing dc prednisone wheezing has resolved #Bipolar d/o: cont home medications #Acute hypoxemic resp failure: resolved. Due to PNA, Now resolved. Influenza negative oxygen levels stable on room air #Acute encephalopathy: Resolved #Uncontrolled DM 1: reports sugars being up recently; likely due to infection. Resume home insulin, SSI better today #Diet: diabetic #DVT ppx: ambulating #Disp: today/ gave him a PCP to f/u with Subjective: will is c/o some back pain/ has loose dry cough. Objective: Vital Signs Temp Pulse Resp BP Pulse Ox 36.7 C 80 19 127/94 H 96 12/11/16 07:41 12/11/16 07:41 12/11/16 07:41 12/11/16 07:41 12/11/16 07:41 Laboratory Results 12/07/16 04:38 12/10/16 08:10 12/10/16 12/11/16 12/12/16 05:59 05:59 05:59 Intake Total 500 Balance 500 PT 12.9 SEC (12.0-15.0) 12/05/16 14:15 INR 0.98 (0.83-1.16) 12/05/16 14:15 - Physical Exam Constitutional: no apparent distress, appears nourished Eyes: PERRL Ears, Nose, Mouth, Throat: hearing normal Cardiovascular: regular rate and rhythym Respiratory: no respiratory distress, no rales or rhonchi, clear to auscultation , No expiratory wheeze Gastrointestinal: normoactive bowel sounds Skin: warm Musculoskeletal: full muscle strength, muscular tenderness (low back area) Neurologic: AAOx3 Psychiatric: interacting appropriately, not anxious, not encephalopathic ICD10 Worksheet Patient Problems: Problems Problem Status Onset Pneumonia Acute Bipolar affective disorder, current episode depression Active Diabetes mellitus type 2 Active Bronchospasm Acute DKA (diabetic ketoacidoses) Acute Empyema of left pleural space Acute Hyperglycemia Acute Left lower lobe pneumonia Acute MRSA (methicillin resistant Staphylococcus aureus) Acute 10/30/15 Pneumonia Acute
[2016-12-11] MEDS: INSULIN NPH HUMAN 100 UNITS/ML SYRINGE SC SCH (09:37)
--- NOTE | 2016-12-11 09:39 | GDS ---
[f rep st] DISCHARGE SUMMARY DISCHARGE DIAGNOSES: 1. Community-acquired pneumonia/right-sided pneumonia. 2. Episode of wheezing. 3. Bipolar disorder. 4. Acute hypoxemic respiratory failure. 5. Acute encephalopathy. 6. Uncontrolled diabetes type 1. CONSULTATIONS: Dr. Blayne Wayne. Briefly, the patient is a 46-year-old man with a history of bipolar, as well as MRSA empyema, which required VATS, who presented to the emergency room with shortness of breath. On admission, he was quite obtunded. He did get Ativan prior, in which he was quite agitated. He has a history of type 1 diabetes. He was here approximately 2 months ago, treated for community-acquired pneumonia with improvement. He was admitted for further care. HOSPITAL COURSE: 1. Community-acquired pneumonia/right-sided pneumonia. He was recently hospitalized at [facility] and had H influenzae. He was treated with ceftriaxone and azithromycin. The blood culture showed no growth. He will be discharged on Augmentin b.i.d. x10 days and further followup with Dr. Wayne. 2. Wheezing. This has resolved. He was initiated on prednisone, but with his high blood sugars, this was discontinued. He is no longer wheezing. 3. Bipolar disorder. His home medications have been continued. 4. Acute hypoxemic respiratory failure, resolved. 5. Acute encephalopathy, resolved. 6. Controlled diabetes type 1. Glucoses are better today. PENDING LABS AND TESTS: None. CONDITION ON DISCHARGE: Stable. Blood pressure is 127/94. Heart rate is 80. Respiratory rate is 19. O2 sats on room air 96%. Temperature is 36.7 Celsius. DISCHARGE MEDICATIONS: Please see the EMR. DISCHARGE INSTRUCTIONS: 1. To follow up with Dr. Wayne this week. 2. To get a repeat chest x-ray in 6 weeks to make sure resolution of his pneumonia. 3. I have given him the name of a primary care provider and a group for followup care. 4. To continue a diabetic diet. 5. If he develops fever, chills, chest pain, shortness of breath, return to the ER. Greater than 30 minutes discharging and coordinating care. /[id number]/MODL MTDD
== END 2016-12-11 13:00 | disposition home or self-care (01) | DRG 193 ==
LOC: EDUNIT# → F2N 16:26 → OBSVTOIN 16:31 → F3E 12-06 20:30
PROVIDERS: ADMIT Student in an Organized Health Care Education/Training Program; ATTEND Student in an Organized Health Care Education/Training Program
DX: J18.9 Pneumonia, unspecified organism (principal); J96.01 Acute respiratory failure with hypoxia; G93.40 Encephalopathy, unspecified; E10.65 Type 1 diabetes mellitus with hyperglycemia; I10 Essential (primary) hypertension; K21.9 Gastro-esophageal reflux disease without esophagitis; F31.9 Bipolar disorder, unspecified; Z87.01 Personal history of pneumonia (recurrent); Z86.14 Personal history of Methicillin resistant Staphylococcus aureus infection; Z87.891 Personal history of nicotine dependence; Z79.4 Long term (current) use of insulin
CPT/HCPCS: 82947-QW; 87449-90; 96374; J0692; J0696; J1815; J2060; J3370

== ENCOUNTER 2017-01-22 21:47 | Inpatient (IN) | payer MEDICAID ==
[2017-01-22] MEDS ORDERED: NS 1,000 ML IV ONE (22:07)
[2017-01-22] MEDS ORDERED: IPRATROPIUM/ALBUTEROL 3 ML DEYVIAL IH ONE (22:07)
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
[2017-01-22 22:32] LABS: % IMMATURE GRANULYOCYTES 0.3 % (0.0-1.1); ABSOLUTE IMMATURE GRANULOCYTES 0.03 10^3/uL (0.00-0.10); ADD DIFF? NO; ADD MORPH? NO; ADD SCAN? NO; ATYPICAL LYMPHOCYTE FLAG 10 (0-99); FRAGMENT RBC FLAG 0 (0-99); HEMATOCRIT 39.1 % (40.0-51.0); HEMOGLOBIN 13.5 g/dL (13.7-17.5); LEFT SHIFT FLG 0 (0-99); LIPEMIA HEMOLYSIS FLAG 90 (0-99); MEAN CELL HEMOGLOBIN 29.9 pg (27.9-34.1); MEAN CELL HEMOGLOBIN CONCENTR. 34.5 g/dL (32.4-36.7); MEAN CELL VOLUME 86.5 fL (81.5-99.8); MEAN PLATELET VOLUME 8.2 fL (8.7-11.7); PLATELET CLUMPS FLAG 0 (0-99); PLATELET COUNT 450 10^3/uL (150-400); RED BLOOD CELL COUNT 4.52 10^6/uL (4.40-6.38); RED CELL DISTRIBUTION WIDTH 12.9 % (11.5-15.2)
[2017-01-22 22:49] LABS: ANION GAP 14 mEq/L (8-16); CALCIUM 9.9 mg/dL (8.5-10.4); CARBON DIOXIDE 33 mEq/l (22-31); CHLORIDE 90 mEq/L (97-110); CREATININE 0.8 mg/dL (0.7-1.3); GLOMERULAR FILTRATION RATE > 60; GLUCOSE 101 mg/dL (70-100); POTASSIUM 3.7 mEq/L (3.5-5.2); SODIUM 137 mEq/L (134-144)
[2017-01-22 23:01] LABS: TROPONIN I < 0.012 ng/mL (0-0.034)
[2017-01-22] MEDS ORDERED: ALBUTEROL 3 ML DEYVIAL IH PRN (23:30)
[2017-01-22] MEDS ORDERED: ONDANSETRON DISINTEGRATING 4 MG TAB PO PRN (23:30)
[2017-01-22] MEDS ORDERED: oxyCODONE IR 5 MG TAB PO PRN (23:30)
[2017-01-22] MEDS ORDERED: ACETAMINOPHEN 500 MG TAB PO PRN (23:30)
[2017-01-22] MEDS ORDERED: ONDANSETRON 4 MG/2 ML VIAL IVP PRN (23:30)
[2017-01-22] MEDS ORDERED: ACETAMINOPHEN/ASA/CAFFEINE 1 EACH TAB PO PRN (23:34)
[2017-01-22] MEDS ORDERED: levOFLOXACIN 500 MG/DEXTROSE/100 ML BAG IV ONE (23:45)
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
[2017-01-23] MEDS: levOFLOXACIN 500 MG/DEXTROSE 100 ML IV SCH ×2 (00:03→08:32)
[2017-01-23] MEDS ORDERED: ACETAMINOPHEN 500 MG TAB PO ONE (00:06)
[2017-01-23] MEDS ORDERED: D50W 25 GM/50 ML SYR IVP PRN (00:57)
[2017-01-23] MEDS ORDERED: CALCIUM CARBONATE 500 MG CHEWABLE TAB PO PRN (01:01)
[2017-01-23] MEDS ORDERED: LORazepam 1 MG TAB PO PRN ×2 (01:58→02:10)
[2017-01-23] MEDS: PANTOPRAZOLE SODIUM 40 MG TAB PO SCH ×3 (02:02→21:56)
[2017-01-23] MEDS ORDERED: oxyCODONE IR 5 MG TAB PO PRN (02:10)
[2017-01-23 03:16] LABS: PHENCYCLIDINE URINE BCH 12 ng/ml (NEGATIVE); PHENCYCLIDINE URINE BCH NEGATIVE (NEGATIVE); TETRAHYDROCANNABINOL URINE < 5 ng/mL (NEGATIVE); TETRAHYDROCANNABINOL URINE NEGATIVE (NEGATIVE)
[2017-01-23] MEDS: IPRATROPIUM/ALBUTEROL 3 ML DEYVIAL IH SCH ×4 (04:51→20:35)
[2017-01-23 06:22] LABS: % IMMATURE GRANULYOCYTES 0.2 % (0.0-1.1); ABSOLUTE IMMATURE GRANULOCYTES 0.02 10^3/uL (0.00-0.10); ADD DIFF? NO; ADD MORPH? NO; ADD SCAN? NO; ATYPICAL LYMPHOCYTE FLAG 10 (0-99); FRAGMENT RBC FLAG 0 (0-99); HEMATOCRIT 37.2 % (40.0-51.0); HEMOGLOBIN 12.4 g/dL (13.7-17.5); LEFT SHIFT FLG 0 (0-99); LIPEMIA HEMOLYSIS FLAG 80 (0-99); MEAN CELL HEMOGLOBIN 29.2 pg (27.9-34.1); MEAN CELL HEMOGLOBIN CONCENTR. 33.3 g/dL (32.4-36.7); MEAN CELL VOLUME 87.5 fL (81.5-99.8); MEAN PLATELET VOLUME 8.4 fL (8.7-11.7); PLATELET CLUMPS FLAG 0 (0-99); PLATELET COUNT 408 10^3/uL (150-400); RED BLOOD CELL COUNT 4.25 10^6/uL (4.40-6.38); RED CELL DISTRIBUTION WIDTH 13.1 % (11.5-15.2)
[2017-01-23 06:31] LABS: INR 1.06 (0.83-1.16); PROTIME(PATIENT) 13.7 SEC (12.0-15.0)
[2017-01-23 06:32] LABS: APTT 31.1 SEC (23.0-38.0)
[2017-01-23 06:57] LABS: ANION GAP 11 mEq/L (8-16); CALCIUM 9.3 mg/dL (8.5-10.4); CARBON DIOXIDE 34 mEq/l (22-31); CHLORIDE 93 mEq/L (97-110); CREATININE 0.8 mg/dL (0.7-1.3); GLOMERULAR FILTRATION RATE > 60; GLUCOSE 161 mg/dL (70-100); MAGNESIUM 1.8 mg/dL (1.6-2.3); POTASSIUM 3.9 mEq/L (3.5-5.2); SODIUM 138 mEq/L (134-144)
[2017-01-23] MEDS: INSULIN REGULAR HUMAN 100 UNIT/ML SC SCH ×4 (08:32→21:56)
[2017-01-23] MEDS: ENOXAPARIN 40 MG/0.4 ML SYR SC SCH (08:33)
[2017-01-23] MEDS ORDERED: IOPAMIDOL (ISOVUE 370) 100 ML BTL IV ONE (10:03)
--- NOTE | 2017-01-23 12:07 | ECHO ---
[id number] + + [address] : : [place] [address] : : [phone] + + Adult Echocardiographic Report + ------+ :Name: KESHIA SHEIKH MStudy Date: 01/23/2017 10:37 AM : : Hospital Admission Number: [id number] Locatio n: 354: :: 1970 Gender: Male Height: 69 in : :Age: 46 yrs Weight: 165 lb : :Reason For Study: Eval LV Fx : : BSA: 1.9 meters 2 : :History: Hypoxia : + ------+ MMode/2D Measurements \T\ Calculations IVSd: 1.0 cm LVIDd: 4.6 cm FS: 46.4 % LVPWd: 0.95 cm LVIDs: 2.5 cm EDV(Teich): 99.0 ml ESV(Teich): 21.9 ml EF(Teich): 77.8 % Normal Measurement Values: + + :LVIDd (3.5-5.7cm) IVSd (0.6-1.1cm) LVPWd (0.6-1.1cm) Aortic Root (2.0-3.7cm)Left Atrium (1.5-4.0cm): :LV Vol(d) (76-115ml) LV Vol(s) (29-48ml) Ejec Fraction (50-65%)PV Judah (0.6- 1.2m/s) TV Judah (0.4-1.0m/s) : :MV E Judah (0.8-1.0m/s)MV A Judah (0.3-1.0m/s)LVOT Judah (0.7-1.2m/s) Asc Ao Judah ( 0.9-1.8m/s) : + + Doppler Measurements \T\ Calculations MV E max judah: Ao V2 max: LV V1 max: PA V2 max: 96.7 cm/sec 73.8 cm/sec 97.2 cm/sec 113.0 cm/sec MV A max judah: Ao max PG: LV V1 max PG: PA max P.1 mmHg 80.0 cm/sec 2.8 mmHg 3.8 mmHg MV E/A: 1.2 TR max judah: 256.0 cm/sec TR max P.2 mmHg RAP systole: 5.0 mmHg RVSP(TR): 31.2 mmHg Left Ventricle The left ventricle is normal in size. There is normal left ventricular wall thickness. The left ventricular ejection fraction is normal. There is Doppler evidence for diastolic dysfunction. Ejection Fraction = 77%. The left ventricular wall motion is normal. Right Ventricle The right ventricle is normal in size and function. Atria The left atrial size is normal. Right atrial size is normal. Mitral Valve The mitral valve is normal in structure and function. There is no evidence of mitral valve prolapse. There is no mitral valve stenosis. There is no mitral regurgitation noted. Tricuspid Valve Normal tricuspid valve. There is trace tricuspid regurgitation. Right ventricular systolic pressure is normal. Aortic Valve The aortic valve opens well. There is no aortic stenosis. There is no aortic insufficiency. Pulmonic Valve The pulmonic valve is normal in structure and function. There is no pulmonic valvular regurgitation. Great Vessels The aortic root is normal size. Pericardium/Pleural There is no pericardial effusion. Conclusion A complete two-dimensional transthoracic echocardiogram was performed (2D, M-mode, Doppler and color flow Doppler). The left ventricular ejection fraction is normal. There is Doppler evidence for diastolic dysfunction. Ejection Fraction = 77%. The left ventricular wall motion is normal. The right ventricle is normal in size and function. The left atrial size is normal. The mitral valve is normal in structure and function. Normal tricuspid valve There is trace tricuspid regurgitation. Right ventricular systolic pressure is normal. The aortic valve opens well. The aortic root is normal size. There is no pericardial effusion. Final Reading Physician: Ashwin Peralta signed on 01/23/2017 12:05 PM Ordering Physician: Deleted User Performed By: Odell Lozoya, THI
[2017-01-23] MEDS ORDERED: IPRATROPIUM HFA INHALER IH PRN (13:57)
--- NOTE | 2017-01-23 15:00 | HOSPPROG ---
Hospitalist Progress Note Assessment/Plan: assessment: 46-year-old male presents with acute reactive airway exacerbation in the setting of recent right lower lobe pneumonia Plan: 1. Reactive airway exacerbation. Acute, new problem this provider, further workup indicated. evidenced by diffuse expiratory wheezes with fluctuating levels of hypoxia, most likely precipitated by right lower lobe pneumonia - rule out pulmonary embolism with CT angiogram -chest x-ray demonstrating improving right lower lobe infiltrate as well as interstitial processes, personally interpreted -continue levofloxacin for total of 10 days given ongoing symptoms and airway exacerbation currently day 03/04 -continue on scheduled nebs -add prednisone 40 mg daily - requiring ongoing inpatient care given persistence of wheezes and symptomatic shortness of breath with hypoxia, reassess in 24 hours 2. recent pneumonia. Community-acquired, right lower lobe, day of levofloxacin -order outside records to determine what the pathology results from the lung biopsy are -no leukocytosis 3. Chronic pain with continuous opiate and benzodiazepine dependency. Continue patient's home pain medications 4. Diabetes mellitus type 1. continue long-acting insulin, continue on insulin sliding scale Diet. Regular Prophylaxis. Moderate risk patient, Lovenox 40 Code. Full Disposition. Anticipated discharge uncertain this time, ongoing reactive airway exacerbation requiring scheduled nebulizer treatments, introduction of prednisone, ongoing reassessments. Patient meets inpatient criteria with anticipated length stay greater than 2 midnights for reasonable medical necessity including acute reactive airway exacerbation as outlined above. Subjective: patient reports ongoing shortness of breath Objective: Vital Signs Temp Pulse Resp BP Pulse Ox 36.8 C 77 14 144/92 H 93 01/23/17 11:06 01/23/17 11:13 01/23/17 11:13 01/23/17 11:06 01/23/17 11:13 Laboratory Results 01/23/17 06:12 01/23/17 06:12 01/22/17 01/23/17 01/24/17 05:59 05:59 05:59 Intake Total 1500 Output Total 550 Balance 1500 -550 PT 13.7 SEC (12.0-15.0) 01/23/17 06:12 INR 1.06 (0.83-1.16) 01/23/17 06:12 - Physical Exam Constitutional: no apparent distress, not in pain, chronically ill appearing, uncomfortable Cardiovascular: regular rate and rhythym, no murmur, rub, or gallop Respiratory: reduced air movement ( on expiration bilaterally), expiratory wheeze, bronchial breath sounds, No inspiratory crackles, No respiratory distress Gastrointestinal: normoactive bowel sounds, soft, non-tender abdomen, no palpable masses Neurologic: AAOx3, sensation intact bilaterally Psychiatric: interacting appropriately, not anxious, not encephalopathic, thought process linear ICD10 Worksheet Patient Problems: Problems Problem Status Onset Bipolar affective disorder, current episode depression Active Diabetes mellitus type 2 Active Hyperglycemia Acute Left lower lobe pneumonia Acute DKA (diabetic ketoacidoses) Acute Bronchospasm Acute MRSA (methicillin resistant Staphylococcus aureus) Acute 10/30/15 Empyema of left pleural space Acute Pneumonia Acute Pneumonia Acute Hypoxemia Acute Shortness of breath Acute
[2017-01-23] MEDS ORDERED: levOFLOXACIN 250 MG/DEXTROSE 50 ML IV ONE (16:00)
[2017-01-23] MEDS: predniSONE 20 MG TAB PO SCH (16:54)
[2017-01-23] MEDS: LORazepam 1 MG TAB PO PRN ×2 (16:57→22:32)
[2017-01-23] MEDS: INSULIN NPH HUMAN 100 UNITS/ML SYRINGE SC SCH (17:43)
[2017-01-23] MEDS: oxyCODONE IR 5 MG TAB PO PRN ×2 (19:10→22:32)
[2017-01-24] MEDS: oxyCODONE IR 5 MG TAB PO PRN ×6 (02:18→21:41)
[2017-01-24] MEDS: IBUPROFEN 200 MG TAB PO PRN ×2 (04:40→17:35)
[2017-01-24] MEDS: LORazepam 1 MG TAB PO PRN ×3 (04:40→21:41)
[2017-01-24] MEDS: IPRATROPIUM/ALBUTEROL 3 ML DEYVIAL IH SCH ×4 (05:16→21:48)
[2017-01-24 06:05] LABS: % IMMATURE GRANULYOCYTES 0.3 % (0.0-1.1); ABSOLUTE IMMATURE GRANULOCYTES 0.02 10^3/uL (0.00-0.10); ADD DIFF? NO; ADD MORPH? NO; ADD SCAN? NO; ATYPICAL LYMPHOCYTE FLAG 20 (0-99); FRAGMENT RBC FLAG 0 (0-99); HEMATOCRIT 37.1 % (40.0-51.0); HEMOGLOBIN 12.5 g/dL (13.7-17.5); LEFT SHIFT FLG 0 (0-99); LIPEMIA HEMOLYSIS FLAG 80 (0-99); MEAN CELL HEMOGLOBIN CONCENTR. 33.7 g/dL (32.4-36.7); MEAN CELL VOLUME 89.2 fL (81.5-99.8); MEAN PLATELET VOLUME 8.2 fL (8.7-11.7); PLATELET CLUMPS FLAG 0 (0-99); PLATELET COUNT 395 10^3/uL (150-400); RED BLOOD CELL COUNT 4.16 10^6/uL (4.40-6.38); RED CELL DISTRIBUTION WIDTH 12.9 % (11.5-15.2)
[2017-01-24 06:31] LABS: ANION GAP 9 mEq/L (8-16); CALCIUM 9.4 mg/dL (8.5-10.4); CARBON DIOXIDE 28 mEq/l (22-31); CHLORIDE 97 mEq/L (97-110); CREATININE 0.6 mg/dL (0.7-1.3); GLOMERULAR FILTRATION RATE > 60; GLUCOSE 232 mg/dL (70-100); POTASSIUM 4.2 mEq/L (3.5-5.2); SODIUM 134 mEq/L (134-144)
[2017-01-24] MEDS: ADDERALL 20 MG TAB PO SCH ×2 (08:45→12:21)
[2017-01-24] MEDS: INSULIN REGULAR HUMAN 100 UNIT/ML SC SCH ×4 (08:45→21:41)
[2017-01-24] MEDS: predniSONE 20 MG TAB PO SCH (08:45)
[2017-01-24] MEDS: FLUoxetine 20 MG CAP PO SCH (08:45)
[2017-01-24] MEDS: ENOXAPARIN 40 MG/0.4 ML SYR SC SCH ×2 (08:45→08:52)
[2017-01-24] MEDS: PANTOPRAZOLE SODIUM 40 MG TAB PO SCH ×2 (08:45→21:41)
[2017-01-24] MEDS: BACLOFEN 20 MG TAB PO PRN (09:01)
[2017-01-24] MEDS: INSULIN NPH HUMAN 100 UNITS/ML SYRINGE SC SCH ×2 (10:04→19:59)
[2017-01-24] MEDS: ACETYLCYSTEINE 10% 30 ML VIAL IH SCH ×3 (12:34→20:30)
--- NOTE | 2017-01-24 13:17 | HOSPPROG ---
Hospitalist Progress Note Assessment/Plan: Assessment: 46-year-old male presents with acute reactive airway exacerbation in the setting of recent right lower lobe pneumonia and suspected bronchiolitis Plan: 1. Reactive airway exacerbation. Acute, evidenced by diffuse expiratory wheezes with fluctuating levels of hypoxia, most likely precipitated by right lower lobe pneumonia - ruled out pulmonary embolism with CT angiogram - continue on scheduled nebs - cont on prednisone 40 mg daily, D2/5 - add acetylcysteine - requiring ongoing inpatient care given persistence of wheezes and symptomatic shortness of breath with hypoxia, reassess in 24 hours 2. Recent pneumonia. Community-acquired, right lower lobe, day 8 of 10 of levofloxacin 3. Chronic pain with continuous opiate and benzodiazepine dependency. Continue patient's home pain medications 4. Diabetes mellitus type 1. continue long-acting insulin, continue on insulin sliding scale 5. Suspected bronchiolitis. Per patient report, s/p VATs on R from w/ additional studies reportedly sent to [facility] - mucus plugging on chest CT, no overt recurrence of PNA - consulting with Dr. Mcmullen to asst guiding patient regarding outpt care and how to manage moving forward - outside records from ordered Diet. Regular Prophylaxis. Moderate risk patient, Lovenox 40 Code. Full Disposition. Anticipated discharge uncertain this time, ongoing wheezes. Subjective: Patient reports ongoing cough Objective: Vital Signs Temp Pulse Resp BP Pulse Ox 36.9 C 74 18 116/72 96 01/24/17 08:00 01/24/17 08:00 01/24/17 08:00 01/24/17 08:00 01/24/17 08:00 Laboratory Results 01/24/17 05:49 01/24/17 05:49 01/23/17 01/24/17 01/25/17 05:59 05:59 05:59 Intake Total 1500 600 Output Total 1200 Balance 1500 -600 PT 13.7 SEC (12.0-15.0) 01/23/17 06:12 INR 1.06 (0.83-1.16) 01/23/17 06:12 - Time Spent With Patient Time Spent with Patient: greater than 35 minutes Time Spent with Patient: Greater than 35 minutes spent on this patients care, greater than 50% of time spent counseling, educating, and coordinating care regarding the above mentioned plan. - Physical Exam Constitutional: no apparent distress, appears nourished, not in pain Respiratory: expiratory wheeze ( faint bilaterally), inspiratory crackles ( bilateral bases), No bronchial breath sounds Skin: other ( scarred areas on right chest without any surrounding erythema, mild lipo-displacement right chest) ICD10 Worksheet Patient Problems: Problems Problem Status Onset Hypoxemia Acute Shortness of breath Acute Bipolar affective disorder, current episode depression Active Diabetes mellitus type 2 Active Bronchospasm Acute DKA (diabetic ketoacidoses) Acute Empyema of left pleural space Acute Hyperglycemia Acute Left lower lobe pneumonia Acute MRSA (methicillin resistant Staphylococcus aureus) Acute 10/30/15 Pneumonia Acute Pneumonia Acute
[2017-01-24] MEDS ORDERED: NICOTINE POLACRILEX 2 MG GUM B PRN (15:35)
[2017-01-24] MEDS: NICOTINE 21 MG/24 HR PATCH TD SCH (16:17)
[2017-01-25] MEDS: IPRATROPIUM/ALBUTEROL 3 ML DEYVIAL IH SCH ×2 (05:29→11:57)
[2017-01-25] MEDS: ACETYLCYSTEINE 10% 30 ML VIAL IH SCH ×2 (05:31→11:58)
[2017-01-25] MEDS: oxyCODONE IR 5 MG TAB PO PRN ×2 (06:45→13:01)
[2017-01-25] MEDS: ADDERALL 20 MG TAB PO SCH ×2 (07:29→11:34)
[2017-01-25] MEDS: predniSONE 20 MG TAB PO SCH (07:30)
[2017-01-25] MEDS: FLUoxetine 20 MG CAP PO SCH (07:30)
[2017-01-25] MEDS: PANTOPRAZOLE SODIUM 40 MG TAB PO SCH (07:30)
[2017-01-25] MEDS: NICOTINE 21 MG/24 HR PATCH TD SCH (07:31)
[2017-01-25 07:51] VITALS: BP 137/98; TEMP 98
[2017-01-25] MEDS: BACLOFEN 20 MG TAB PO PRN (07:58)
[2017-01-25] MEDS: INSULIN NPH HUMAN 100 UNITS/ML SYRINGE SC SCH (07:58)
[2017-01-25] MEDS: INSULIN REGULAR HUMAN 100 UNIT/ML SC SCH ×2 (07:59→11:54)
[2017-01-25] MEDS: ENOXAPARIN 40 MG/0.4 ML SYR SC SCH (08:00)
[2017-01-25] MEDS: LORazepam 1 MG TAB PO PRN (10:52)
[2017-01-25 12:15] VITALS: PULSE 100; RESP 17; O2SAT 94
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
== END 2017-01-25 15:39 | disposition home or self-care (01) | DRG 202 ==
LOC: EDUNIT# → OBSVTOIN 23:30 → F3N 01-23 00:29 → F3E 01-23 17:25
PROVIDERS: ADMIT Internal Medicine; ATTEND Internal Medicine
DX: J45.901 Unspecified asthma with (acute) exacerbation (principal); J18.0 Bronchopneumonia, unspecified organism; J96.01 Acute respiratory failure with hypoxia; K21.9 Gastro-esophageal reflux disease without esophagitis; F11.20 Opioid dependence, uncomplicated; F13.20 Sedative, hypnotic or anxiolytic dependence, uncomplicated; G89.29 Other chronic pain; E10.9 Type 1 diabetes mellitus without complications; Z63.0 Problems in relationship with spouse or partner; F31.9 Bipolar disorder, unspecified
CPT/HCPCS: 80307; G0480; J1650; J1815; J1956; Q9967

== ENCOUNTER 2017-03-11 21:58 | Emergency (ER) | payer MEDICAID ==
[2017-03-11 22:57] LABS: % IMMATURE GRANULYOCYTES 0.6 % (0.0-1.1); ABSOLUTE IMMATURE GRANULOCYTES 0.06 10^3/uL (0.00-0.10); ADD DIFF? NO; ADD MORPH? NO; ADD SCAN? NO; ATYPICAL LYMPHOCYTE FLAG 0 (0-99); FRAGMENT RBC FLAG 0 (0-99); HEMATOCRIT 28.9 % (40.0-51.0); HEMOGLOBIN 9.7 g/dL (13.7-17.5); LEFT SHIFT FLG 0 (0-99); LIPEMIA HEMOLYSIS FLAG 80 (0-99); MEAN CELL HEMOGLOBIN 29.8 pg (27.9-34.1); MEAN CELL HEMOGLOBIN CONCENTR. 33.6 g/dL (32.4-36.7); MEAN CELL VOLUME 88.9 fL (81.5-99.8); MEAN PLATELET VOLUME 8.1 fL (8.7-11.7); PLATELET CLUMPS FLAG 10 (0-99); PLATELET COUNT 498 10^3/uL (150-400); RED BLOOD CELL COUNT 3.25 10^6/uL (4.40-6.38); RED CELL DISTRIBUTION WIDTH 15.4 % (11.5-15.2)
[2017-03-11 23:13] LABS: ANION GAP 10 mEq/L (8-16); CALCIUM 9.3 mg/dL (8.5-10.4); CARBON DIOXIDE 21 mEq/l (22-31); CHLORIDE 105 mEq/L (97-110); CREATININE 0.8 mg/dL (0.7-1.3); GLOMERULAR FILTRATION RATE > 60; GLUCOSE 263 mg/dL (70-100); POTASSIUM 4.1 mEq/L (3.5-5.2); SODIUM 136 mEq/L (134-144)
--- NOTE | 2017-03-12 | EDPHY ---
H & P Stated Complaint: sob, chest tube placed for spont. 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 Patient was admitted to [facility] 12 days ago with a hemothorax. He underwent a VATS procedure and had his chest tube removed about 9 days ago. Since that time patient has been having some persistent shortness of breath with a nonproductive cough and some mild right-sided chest pain. This is largely unchanged since his hospitalization. He has not followed up with loom doffer her cardiothoracic surgeon since that time. States that he has been having worsening shortness of breath for the last week. Woke up last night with a fever. States that hurts to breathe for the last several days prior has a cough with greenish sputum. Also states that 2 days ago he had some hematemesis. Patient states he has not followed up with his physicians. ROS: 10 point Review of Systems is negative except as noted in the HPI. PMH: Bronchiectasis, recurrent pneumoniae, diabetes Social History: No smoking, quit in September, no alcohol, no recreational drug use Family History: non-contributory Physical Exam: Gen: Awake, Alert, No Distress HEENT: Nose: no rhinorrhea Eyes: PERRLA, EOMI Mouth: Moist mucosa Neck: Supple, no JVD Chest: Well-healing right chest tube in incision is, no erythema or discharge, lungs clear to auscultation Heart: S1, S2 normal, no murmur Abd: Soft, non-tender, no guarding Back: no CVA tenderness, no midline tenderness Ext: no edema, non-tender Skin: no rash Neuro: CN II-XII intact, Sensation grossly intact, Strength 5/5 in bilateral upper and lower extremities - Personal History Current Tetanus Diphtheria and Acellular Pertussis (TDAP): Yes Tetanus Vaccine Date: 2013 - Medical/Surgical History Hx Asthma: No Hx Chronic Respiratory Disease: No Hx Diabetes: Yes Hx Cardiac Disease: No Hx Renal Disease: No Hx Cirrhosis: No Hx Alcoholism: No Hx HIV/AIDS: No Hx Splenectomy or Spleen Trauma: No Other PMH: PMH: DIABETES,KIDNEY STONES, GERD, PNA WITH MRSA, EMPYEMA, pna, htn, adhd,depression, spontaneous pnumothorax w/ chest tube placment - Social History Smoking Status: Current some day smoker Constitutional: Initial Vital Signs Temperature (C) 36.8 C 03/11/17 22:03 Heart Rate 103 H 03/11/17 22:03 Respiratory Rate 20 03/11/17 22:03 Blood Pressure 160/100 H 03/11/17 22:03 O2 Sat (%) 95 03/11/17 22:03 O2 Delivery Mode Room Air Allergies/Adverse Reactions: Sulfa (Sulfonamide Antibiotics) [Sulfa(Sulfonamide Antibiotics)] Allergy (Severe , Verified 10/09/16 12:14) Anaphylaxis DILIP Inhibitors Allergy (Verified 11/04/16 04:23) Home Medications: Medication Instructions Recorded Ipratropium [Atrovent Hfa (*)] 2 puffs IH Q4 PRN #1 mdi 10/12/16 Insulin NPH Human Isophane 30 unit SQ BIDAC 12/06/16 [Humulin N] Ibuprofen [Motrin (*)] 800 mg PO BID PRN #30 tab 12/11/16 FLUoxetine [Prozac 20 MG (*)] 20 mg PO DAILY 01/22/17 Pantoprazole Sodium [Protonix 40mg 40 mg PO BID 01/23/17 (*)] Amphet Asp and D/Amphet [Adderall 20 mg PO BID@08,12 #60 tab 01/25/17 20 mg (*)] Baclofen [Baclofen 20 mg (*)] 20 mg PO BID PRN #60 tab 01/25/17 Insulin Regular, Human [HUMULIN R] 2 - 7 unit IJ AC #1 vial 01/25/17 LORazepam [Ativan 2 mg tab] 2 mg PO BID PRN #30 tablet 01/25/17 Nicotine [Nicoderm Cq 21 mg (*)] 21 mg TD DAILY #30 patch 01/25/17 clonIDINE [Catapres (*)] 0.2 mg PO TID #90 tab 01/25/17 oxyCODONE IR [Oxycodone Ir (*)] 15 mg PO BID PRN #60 tab 01/25/17 predniSONE 40 mg PO DAILY #14 tablet 01/25/17 Medical Decision Making - Diagnostics Imaging Results: Imaging Impressions Chest X-Ray 03/11/17 22:30 Impression: Mild persistent airways disease with significant decrease in bilateral opacities since the December 2016 study. Imaging: I viewed and interpreted images myself ED Course/Re-evaluation: Patient's chest x-ray is unchanged to 1 he had in December. No evidence of pneumothorax or hemothorax effusion at this time. No infiltrate. I have reviewed his medical records in [facility]. I reviewed his records from [facility] have also noted that the patient was seen in the emergency department twice at [facility] 2 days ago. At that time he had a CT angiogram which was negative. Remainder of his workup is negative. When I asked the patient about this he states that he did not think it was important to mention during our initial conversation. Here the patient is satting very well on room air. He is not having increased work of breathing. He is afebrile. Chest x-ray shows no infiltrate or pneumothorax or complication at this time. He is otherwise well- appearing. No evidence of acute respiratory issue. Patient will be discharged with follow up with his loom doffer, return for worsening. - Data Points Laboratory Results: Laboratory Results 03/11/17 22:49 03/11/17 22:49 03/11/17 03/11/17 22:49 22:49 WBC 10.54 10^3/uL H 10^3/uL (3.80-9.50) RBC 3.25 10^6/uL L 10^6/uL (4.40-6.38) Hgb 9.7 g/dL L g/dL (13.7-17.5) Hct 28.9 % L % (40.0-51.0) MCV 88.9 fL fL (81.5-99.8) MCH 29.8 pg pg (27.9-34.1) MCHC 33.6 g/dL g/dL (32.4-36.7) RDW 15.4 % H % (11.5-15.2) Plt Count 498 10^3/uL H 10^3/uL (150-400) MPV 8.1 fL L fL (8.7-11.7) Neut % (Auto) 63.4 % % (39.3-74.2) Lymph % (Auto) 24.4 % % (15.0-45.0) [place] % (Auto) 5.7 % % (4.5-13.0) Eos % (Auto) 5.0 % % (0.6-7.6) Baso % (Auto) 0.9 % % (0.3-1.7) Nucleat RBC Rel Count 0.0 % % (0.0-0.2) Absolute Neuts (auto) 6.69 10^3/uL H 10^3/uL (1.70-6.50) Absolute Lymphs (auto) 2.57 10^3/uL 10^3/uL (1.00-3.00) Absolute Monos (auto) 0.60 10^3/uL 10^3/uL (0.30-0.80) Absolute Eos (auto) 0.53 10^3/uL H 10^3/uL (0.03-0.40) Absolute Basos (auto) 0.09 10^3/uL 10^3/uL (0.02-0.10) Absolute Nucleated RBC 0.00 10^3/uL 10^3/uL (0-0.01) Immature Gran % 0.6 % % (0.0-1.1) Immature Gran # 0.06 10^3/uL 10^3/uL (0.00-0.10) Sodium 136 mEq/L mEq/L (134-144) Potassium 4.1 mEq/L mEq/L (3.5-5.2) Chloride 105 mEq/L mEq/L (97-110) Carbon Dioxide 21 mEq/l L mEq/l (22-31) Anion Gap 10 mEq/L mEq/L (8-16) BUN 21 mg/dL mg/dL (7-23) Creatinine 0.8 mg/dL mg/dL (0.7-1.3) Estimated GFR > 60 Glucose 263 mg/dL H mg/dL (70-100) Calcium 9.3 mg/dL mg/dL (8.5-10.4) Departure - Departure Disposition: Home, Routine, Self-Care Clinical Impression: Shortness of breath Condition: Good Instructions: Dyspnea (ED) Additional Instructions: Follow up with your loom doffer in 2-3 days for re-evaluation. Return to the emergency department for increasing shortness of breath, worsening cough, uncontrolled fevers or chills, uncontrolled vomiting, or any other concerns. Referrals: NONE *PRIMARY CARE P,. [Primary Care Provider] - As per Instructions
[2017-03-12 00:15] VITALS: BP 145/89; PULSE 96; RESP 16; TEMP 98.1; O2SAT 97
== END 2017-03-12 00:15 | disposition home or self-care (01) ==
DX: R06.02 Shortness of breath (principal); E11.9 Type 2 diabetes mellitus without complications; I10 Essential (primary) hypertension; F17.200 Nicotine dependence, unspecified, uncomplicated; Z79.4 Long term (current) use of insulin

== ENCOUNTER 2017-08-28 10:31 | Emergency (ER) | payer MEDICAID ==
--- NOTE | 2017-08-28 10:37 | EDPHY ---
H & P Smoking Status: Current some day smoker Time Seen by Provider: 08/28/17 10:34 HPI/ROS: 15:00 This patient is turned over to me at change of shift. I was awaiting a repeat chemistry panel after some insulin was administered. This patient still has elevated blood sugar however it is improved difficultly. He will continue to treat as an outpatient and monitor his sugars. He will follow up with PCP. Reviewed laboratory results. Repeat lab work shows decreasing BGL. Patient is safe for discharge as planned by Dr. Garcia. 15:59 Reassessed patient. Discussed laboratory results. Patient requests narcotic pain medication to help relief cough. He also requests 50mg Atenolol QD for 10 days to bridge him over until he can see his PCP. Plan to discharge home in good condition with prescriptions for Oxycodone IR and Atenolol. He will follow up with his PCP next week for further evaluation and management of his medication regimen. Return precautions discussed. He is comfortable with this plan. (Blayne Mackey) CHIEF COMPLAINT: Cough and shortness of breath HISTORY OF PRESENT ILLNESS: Patient has been sick for 2 weeks with nonproductive cough and some shortness of breath associated with chest pain which is only present when he coughs. He also has some diffuse myalgias. He was seen by his primary care provider at [place] 3 days ago and had influenza testing which was negative. He started himself on oral prednisone yesterday and today at 40 mg daily and feels a little bit better but still primarily has a cough that he just can't shake. He does not have leg swelling or skin rash or hemoptysis, and no fever or chills. He is worried this might be pneumonia as he has had multiple previous episodes. REVIEW OF SYSTEMS: Eye: no change in vision ENT: no sore throat Cardiac: HPI no palpitations or syncope Pulmonary: HPI Abdomen: no vomiting, diarrhea, abdominal pain, but does have nausea and decreased oral intake Musculoskeletal: Diffuse myalgias. Skin: no rash. The patient did have a rash a couple of months ago and is undergoing and immunologic evaluation for the possibility of lupus, but does not currently carry that diagnosis. Neuro: no headache Constitutional: no fever : no urinary symptoms A comprehensive 10 point review of systems is otherwise negative aside from elements mentioned in the history of present illness. PAST MEDICAL HISTORY: Previous history and physical dated 12/05/2016 and 2016 personally reviewed. Includes bipolar disorder, history of previous VATS procedure, diabetes, chronic pain with continuous opiate and benzodiazepine dependency, admission for pneumonia and reactive airway exacerbation. No history of DVT or pulmonary embolism. Social history: [place] patient, no recent travel or immobilization. General Appearance: Alert and conversant, cooperative. Eyes: No scleral icterus. ENT, Mouth: Normal mucous membranes. No angioedema, no stridor or drooling. Respiratory: Bilateral expiratory wheezing, no focal lung sounds, no rhonchi or rales. Cardiovascular: Regular rate and rhythm. Gastrointestinal: Abdomen is soft and non tender. Neurological: Alert, face symmetric, normal motor and sensory in extremities. Skin: Warm and dry, no rashes. No urticaria. Musculoskeletal: No peripheral edema. No calf tenderness. Psychiatric: Not agitated. Emergency Department course/MDM: Tessalon 200 mg, oral Percocet for myalgias. DuoNeb and chest x-ray. Zofran 4 mg IV and saline 1 L IV for decreased oral intake and nausea, chemistry panel to check glucose. 1255: Results including x-ray showed no pneumonia and elevated glucose discussed with the patient, additional albuterol neb, 10 U IV insulin, 2 L IV normal saline. 1430: Respiratory status stable, mild asthma exacerbation, no pneumonia, think PE or CHF unlikely. Will continue prednisone at home. Not hypoxemic, will disposition depending on response the therapy for hyperglycemia, signed out to Narendra. (Nolan Garcia) Constitutional: Initial Vital Signs Temperature (C) 36.7 C 08/28/17 10:37 Heart Rate 93 08/28/17 10:37 Respiratory Rate 24 H 08/28/17 10:37 Blood Pressure 158/103 H 08/28/17 10:37 O2 Sat (%) 94 08/28/17 10:37 O2 Delivery Mode Room Air Allergies/Adverse Reactions: Sulfa (Sulfonamide Antibiotics) [Sulfa(Sulfonamide Antibiotics)] Allergy (Severe , Verified 08/28/17 10:35) Anaphylaxis DILIP Inhibitors Allergy (Verified 08/28/17 10:35) Home Medications: Medication Instructions Recorded Insulin NPH Human Isophane 30 unit SQ BIDAC 12/06/16 [Humulin N] Ibuprofen [Motrin (*)] 800 mg PO BID PRN #30 tab 12/11/16 Pantoprazole Sodium [Protonix 40mg 40 mg PO BID 01/23/17 (*)] Amphet Asp and D/Amphet [Adderall 20 mg PO BID@,12 #60 tab 01/25/17 20 mg (*)] Insulin Regular, Human [HUMULIN R] 2 - 7 unit IJ AC #1 vial 01/25/17 LORazepam [Ativan 2 mg tab] 2 mg PO BID PRN #30 tablet 01/25/17 predniSONE 40 mg PO DAILY #14 tablet 01/25/17 Atenolol [Tenormin 25 mg (*)] 50 mg PO DAILY #14 tab 08/28/17 oxyCODONE IR [Oxycodone Ir (*)] 5 mg PO Q4-6PRN PRN #20 tab 08/28/17 Differential Diagnosis: Differential diagnosis considered for shortness of breath including but not limited to pulmonary infectious process, COPD, asthma, pulmonary embolus and congestive heart failure. (Nolan Garcia) - Data Points Laboratory Results: Laboratory Results 08/28/17 12:25 08/28/17 15:00 Medications Given: Discontinued Medications Albuterol (Proventil Neb) 3 ml IH EDNOW ONE Stop: 08/28/17 12:56 Last Admin: 08/28/17 13:09 Dose: 3 ml Albuterol/Ipratropium (Duoneb) 3 ml IH EDNOW ONE Stop: 08/28/17 10:52 Last Admin: 08/28/17 11:05 Dose: 3 ml Benzonatate (Tessalon Pearles) 200 mg PO EDNOW ONE Stop: 08/28/17 10:53 Last Admin: 08/28/17 10:58 Dose: 200 mg Sodium Chloride (Ns) 1,000 mls @ 0 mls/hr IV ONCE ONE; Wide Open PRN Reason: Protocol Stop: 08/28/17 10:52 Last Admin: 08/28/17 12:23 Dose: 1,000 mls Sodium Chloride (Ns) 1,000 mls @ 0 mls/hr IV EDNOW ONE; Wide Open PRN Reason: Protocol Stop: 08/28/17 12:54 Last Admin: 08/28/17 14:01 Dose: 1,000 mls Insulin Human Regular (Humulin R) 10 unit IVP EDNOW ONE Stop: 08/28/17 12:54 Last Admin: 08/28/17 13:09 Dose: 10 units Ondansetron HCl (Zofran) 4 mg IVP EDNOW ONE Stop: 08/28/17 10:56 Last Admin: 08/28/17 12:23 Dose: 4 mg Oxycodone/Acetaminophen (Percocet 5/325) 1 tab PO EDNOW ONE Stop: 08/28/17 10:53 Last Admin: 08/28/17 10:57 Dose: 1 tab Oxycodone/Acetaminophen (Percocet 5/325) 1 tab PO EDNOW ONE Stop: 08/28/17 12:37 Last Admin: 08/28/17 12:38 Dose: 1 tab Departure - Departure Disposition: Home, Routine, Self-Care Clinical Impression: Hyperglycemia Exacerbation of asthma Qualifiers: Asthma severity: unspecified severity Asthma persistence: unspecified Qualified Code(s): J45.901 - Unspecified asthma with (acute) exacerbation Condition: Good Instructions: Asthma (ED) Additional Instructions: 1. Follow up with your primary care provider within one week for further evaluation and management of your medication regimen. 2. Take Atenolol as prescribed. 3. Take Oxycodone IR as prescribed as needed for cough and pain. 4. Return to the emergency department for fever, chest pain, shortness of breath , vomiting, or other worsening of condition. Referrals: [facility] ,. [Edm Groups for Call Sched] - As per Instructions Prescriptions: Atenolol [Tenormin 25 mg (*)] 50 mg PO DAILY #14 tab oxyCODONE IR [Oxycodone Ir (*)] 5 mg PO Q4-6PRN PRN #20 tab PRN Reason: Pain, Moderate
[2017-08-28] MEDS ORDERED: IPRATROPIUM/ALBUTEROL 3 ML DEYVIAL IH ONE (10:51)
[2017-08-28] MEDS ORDERED: BENZONATATE 100 MG CAP PO ONE (10:52)
[2017-08-28] MEDS ORDERED: OXYCODONE/APAP 5/325 TAB PO ONE ×2 (10:52→12:36)
[2017-08-28] MEDS ORDERED: ONDANSETRON 4 MG/2 ML VIAL IVP ONE (10:55)
[2017-08-28] MEDS: NS 1,000 ML IV ONE ×2 (10:59→12:23)
[2017-08-28 12:35] LABS: PLATELET COUNT 388 10^3/uL (150-400)
[2017-08-28] MEDS ORDERED: OXYCODONE/APAP 5/325 TAB ONE (12:35)
[2017-08-28] MEDS ORDERED: NS 1,000 ML IV ONE (12:53)
[2017-08-28] MEDS ORDERED: INSULIN REGULAR HUMAN 100 UNIT/ML IVP ONE (12:53)
[2017-08-28] MEDS ORDERED: ALBUTEROL 3 ML DEYVIAL IH ONE (12:55)
[2017-08-28 15:39] VITALS: BP 143/113; PULSE 92; RESP 16; TEMP 98.2; O2SAT 96
== END 2017-08-28 16:21 | disposition home or self-care (01) ==
DX: J45.901 Unspecified asthma with (acute) exacerbation (principal); E11.65 Type 2 diabetes mellitus with hyperglycemia; E86.9 Volume depletion, unspecified; F17.200 Nicotine dependence, unspecified, uncomplicated; Z79.4 Long term (current) use of insulin
CPT/HCPCS: 96374; J1815; J2405; J7613

== ENCOUNTER 2017-09-03 17:26 | Emergency (ER) | payer MEDICAID ==
[2017-09-03 17:34] VITALS: PULSE 100
[2017-09-03] MEDS ORDERED: IPRATROPIUM/ALBUTEROL 3 ML DEYVIAL IH ONE (17:34)
[2017-09-03] MEDS ORDERED: predniSONE 20 MG TAB ONE (17:37)
--- NOTE | 2017-09-03 17:37 | EDPHY ---
H & P Time Seen by Provider: 09/03/17 17:37 HPI/ROS: CHIEF COMPLAINT: Shortness of breath and wheezing HISTORY OF PRESENT ILLNESS: Patient took prednisone for 3 days after his last emergency department visit now has been coughing and short of breath for the last 24 hr. Not associated with fever or chills or chest pain or leg swelling. Symptoms mild to moderate. Mainly says he can't stop coughing. REVIEW OF SYSTEMS: Eye: no change in vision ENT: no sore throat Cardiac: no chest pain or syncope Pulmonary: HPI Abdomen: no vomiting, diarrhea, abdominal pain Musculoskeletal: no back pain or leg swelling Skin: no rash Neuro: no headache Constitutional: no fever : no urinary symptoms A comprehensive 10 point review of systems is otherwise negative aside from elements mentioned in the history of present illness. PAST MEDICAL HISTORY: Reactive airway disease, diabetes, kidney stones. Hypertension, depression. Social history: Last cigarette September of last year General Appearance: Alert and conversant, cooperative. Eyes: No scleral icterus. ENT, Mouth: Normal mucous membranes. Respiratory: Speaks in full sentences, bilateral expiratory wheezing, normal air movement. Cardiovascular: Regular rate and rhythm. Gastrointestinal: Abdomen is soft and non tender. Neurological: Alert, face symmetric, normal motor and sensory in extremities. Skin: Warm and dry, no rashes. Musculoskeletal: No peripheral edema, no calf tenderness. Psychiatric: Not agitated. Moderately anxious. Emergency Department course/MDM: DuoNeb and albuterol nebulizer, prednisone 60 mg, chest x-ray. 182: Stable chest x-ray, plan to treat symptoms discharged on prednisone and cough medication. 1828: Feeling better, speaking in full sentences, thinks oxycodone type medications helped with his cough. No respiratory distress, reexamine, minimal wheezing. I think it unlikely he has pulmonary embolism or pneumonia or ACS. Smoking Status: Former smoker Constitutional: Initial Vital Signs Temperature (C) 36.8 C 09/03/17 17:32 Heart Rate 100 09/03/17 17:32 Respiratory Rate 20 09/03/17 17:32 Blood Pressure 118/83 H 09/03/17 17:32 O2 Sat (%) 92 09/03/17 17:32 O2 Delivery Mode Room Air Allergies/Adverse Reactions: Sulfa (Sulfonamide Antibiotics) [Sulfa(Sulfonamide Antibiotics)] Allergy (Severe , Verified 08/28/17 10:35) Anaphylaxis DILIP Inhibitors Allergy (Verified 08/28/17 10:35) Home Medications: Medication Instructions Recorded Insulin NPH Human Isophane 30 unit SQ BIDAC 12/06/16 [Humulin N] Ibuprofen [Motrin (*)] 800 mg PO BID PRN #30 tab 12/11/16 Pantoprazole Sodium [Protonix 40mg 40 mg PO BID 01/23/17 (*)] Amphet Asp and D/Amphet [Adderall 20 mg PO BID@08,12 #60 tab 01/25/17 20 mg (*)] Insulin Regular, Human [HUMULIN R] 2 - 7 unit IJ AC #1 vial 01/25/17 LORazepam [Ativan 2 mg tab] 2 mg PO BID PRN #30 tablet 01/25/17 predniSONE 40 mg PO DAILY #14 tablet 01/25/17 Atenolol [Tenormin 25 mg (*)] 50 mg PO DAILY #14 tab 08/28/17 oxyCODONE IR [Oxycodone Ir (*)] 5 mg PO Q4-6PRN PRN #20 tab 08/28/17 oxyCODONE/APAP 5/325 [Percocet] 0.5 tab PO HS PRN #7 tab 09/03/17 predniSONE 10 mg PO AD #15 tab 09/03/17 Medical Decision Making - Diagnostics Imaging Results: Imaging Impressions Chest X-Ray 09/03/17 17:34 Impression: 1. Bronchitis/airways disease. 2. No definite focal pneumonia. - Data Points Medications Given: Discontinued Medications Albuterol (Proventil Neb) 3 ml IH EDNOW ONE Stop: 09/03/17 17:40 Last Admin: 09/03/17 17:43 Dose: 3 ml Albuterol/Ipratropium (Duoneb) 3 ml IH EDNOW ONE Stop: 09/03/17 17:35 Last Admin: 09/03/17 17:39 Dose: 3 ml Prednisone (Prednisone) 60 mg PO EDNOW ONE Stop: 09/03/17 17:40 Last Admin: 09/03/17 17:40 Dose: 60 mg Departure - Departure Disposition: Home, Routine, Self-Care Clinical Impression: Bronchospasm Condition: Good Instructions: Bronchospasm (ED) Referrals: [facility] ,. [Edm Groups for Call Sched] - As per Instructions Prescriptions: oxyCODONE/APAP 5/325 [Percocet] 0.5 tab PO HS PRN #7 tab PRN Reason: Cough, Moderate predniSONE 10 mg PO AD #15 tab
[2017-09-03] MEDS ORDERED: ALBUTEROL 3 ML DEYVIAL IH ONE (17:39)
[2017-09-03] MEDS ORDERED: predniSONE 20 MG TAB PO ONE (17:39)
[2017-09-03 19:08] VITALS: BP 132/95; RESP 18; TEMP 98.6; O2SAT 95
== END 2017-09-03 19:13 | disposition home or self-care (01) ==
LOC: EDUNIT#
DX: J98.01 Acute bronchospasm (principal); E11.9 Type 2 diabetes mellitus without complications; I10 Essential (primary) hypertension; F17.210 Nicotine dependence, cigarettes, uncomplicated; Z79.4 Long term (current) use of insulin
CPT/HCPCS: J7512; J7613

== ENCOUNTER 2017-09-05 15:02 | Inpatient (IN) | payer MEDICAID ==
[2017-09-05] MEDS ORDERED: PROMETHAZINE HCL 25 MG/ML INJ IVP ONE (15:49)
[2017-09-05] MEDS ORDERED: NS 1,000 ML IV ONE ×2 (15:49→17:38)
[2017-09-05] MEDS ORDERED: ONDANSETRON 4 MG/2 ML VIAL IVP ONE (15:49)
[2017-09-05] MEDS ORDERED: IPRATROPIUM/ALBUTEROL 3 ML DEYVIAL IH ONE (15:57)
--- NOTE | 2017-09-05 15:57 | EDPHY ---
General - History Smoking Status: Former smoker Narrative: CHIEF COMPLAINT: Cough, vomiting, shortness of breath HISTORY OF PRESENT ILLNESS: Patient complains of 4 days history of cough and shortness of breath. He also complains of 2 days of nausea vomiting. He says he is coughing with a harsh cough that is occasionally productive and sometimes has some blood at the end of the cough. He has multiple episodes of vomiting, to the point that he has had difficulty keeping his medications down. No chest pain at rest but does have a painful cough. No neck pain or stiffness. No abdominal urinary complaints. No rash. He has been seen in this emergency department for this complaint with a reportedly normal chest x-ray. He was treated with prednisone , oxycodone and cough medicines [id number]. He has also tried Tessalon Perles with no improvement. He saw his primary care physician yesterday with reportedly negative influenza test. No recent travel or surgery. No history of PE. No lower extremity erythema edema or pain. No testosterone use No other associated complaints or modifying factors. REVIEW OF SYSTEMS: Ten systems reviewed and are negative unless otherwise noted in the HPI PCP: Dr. Knott SPECIALISTS: Infectious disease, pulmonology PAST MEDICAL HISTORY: Attention deficit hyperactivity disorder, insulin-dependent diabetic PAST SURGICAL HISTORY: No recent surgeries SOCIAL HISTORY: Former smoker remotely. No drug or alcohol use. 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 Airway patent. Mild erythema but no edema Neck: Normal inspection, supple, non-tender. Painless range of motion all planes. No meningeal signs Respiratory: Harsh rhonchi. No crackles or diminishment. No retractions or distress. Cardiovascular: Regular rate and rhythm. No murmur Gastrointestinal: Abdomen is soft and nontender Back: non-tender, no bony abnormalities Neurological: A&O, nonfocal, normal gait Skin: Warm and dry, no rash. No petechiae or purpura Extremities: Nontender, no pedal edema Psychiatric: Mood and affect normal DIFFERENTIAL DIAGNOSES: Including but not limited to bronchitis, influenza, pneumonia, bronchiolitis, bronchiectasis, PE, ACS MDM: 3:50 p.m. Cough, shortness of breath, nausea, vomiting and body aches for the past 3-4 days. The patient had a negative flu test yesterday at his primary care physician. He has been seen here on August 28 and September 03 with the same complaints. He has been treated with steroid, [id number] cough medicines and oxycodone. Symptoms have worsened to the point that he is now vomiting and not keeping his medications down. He feels as though there is pneumonia despite the chest x-ray, as he has had this happen in the past with confirmation by CT scan. He has no chest pain at rest but does have a painful cough. He is in no acute distress with mild tachycardia but no hypoxemia. I have ordered symptomatic medications, laboratory studies and IV fluid. 4:25 p.m. Notified by Lexy VILLALOBOS. She has expressed her concern over patient's narcotic dependency and previous narcotic abuse. We discuss changing the IV morphine 2 p.o. Percocet once I his established and nausea medications have been administered. At this time they are still attempting to obtain IV access. 4:40 p.m. IV access obtained. Laboratory studies are pending. IV fluid infusing. IV antiemetics will be administered 5:00 p.m. At this time I have discussed the case with SARMAD Young. He will assume care the patient at this time. At this time his laboratory studies are pending. Please see his note for further care and disposition SUPERVISION: Patient was independently examined, but I discussed the case with my secondary supervising physician Dr. Montaño ([facility]) Medical Decision Making: Independent physician evaluation I evaluated and participated in the management of the patient. I also evaluated the patient independently. My co-signature indicates that I have reviewed this chart and I agree with the findings and plan of care as documented. My personal H&P findings include: The patient presents the ED with a 1 day history of vomiting ongoing respiratory symptoms. The patient was seen in the emergency department 2 days ago and diagnosed with bronchitis. He was treated with steroids and albuterol inhaler at that point time. The patient returns today after he developed intractable vomiting. The patient has a history of diabetes and manages his blood sugar with insulin. The patient states he has ongoing respiratory complaints. He is also complaining of generalized myalgias. The patient did have a negative flu test earlier in the week. Physical exam General Appearance: Alert, no distress Eyes: Pupils equal and round no pallor or injection ENT, Mouth: Dry mucous membranes Respiratory: Rhonchorous breath sounds Cardiovascular: Tachycardic Gastrointestinal: Abdomen is soft and nontender, no masses, bowel sounds normal Neurological: A&O, normal motor function, normal sensory exam, normal cranial nerves Skin: Warm and dry, no rashes Musculoskeletal: Neck is supple nontender Extremities: symmetrical, full range of motion ED course The patient presents to the ED with vomiting, an anion gap of 21 a blood sugar of 750. The patient will require admission to the hospital. He received an insulin bolus and was started on insulin drip in the emergency department. Consultation was made with Dr. Fox Bullock from the hospitalist service. The patient will be admitted to the intensive care unit for further care and treatment. Critical care note Critical care time exclusive of procedures and exclusive of the PA's time was 31 minutes, performed by myself, Hector Montaño MD. The patient presents to the ED with diabetic ketoacidosis tachycardia and a respiratory infection. The patient received insulin bolus and was started on insulin drip. The patient will require admission to the intensive care unit for stabilization this evening. (Hector Montaño) - Objective Vital Signs: Initial Vital Signs Temperature (C) 98.2 F 09/05/17 15:09 Heart Rate 108 H 09/05/17 15:09 Respiratory Rate 18 09/05/17 15:09 Blood Pressure 127/92 H 09/05/17 15:09 O2 Sat (%) 95 09/05/17 15:09 O2 Delivery Mode Room Air Allergies/Adverse Reactions: Sulfa (Sulfonamide Antibiotics) [Sulfa(Sulfonamide Antibiotics)] Allergy (Severe , Verified 08/28/17 10:35) Anaphylaxis DILIP Inhibitors Allergy (Verified 08/28/17 10:35) Home Medications: Medication Instructions Recorded Insulin NPH Human Isophane 30 unit SQ BIDAC 12/06/16 [Humulin N] Ibuprofen [Motrin (*)] 800 mg PO BID PRN #30 tab 12/11/16 Pantoprazole Sodium [Protonix 40mg 40 mg PO BID 01/23/17 (*)] Amphet Asp and D/Amphet [Adderall 20 mg PO BID@08,12 #60 tab 01/25/17 20 mg (*)] Insulin Regular, Human [HUMULIN R] 2 - 7 unit IJ AC #1 vial 06/02/17 Atenolol [Tenormin 25 mg (*)] 50 mg PO DAILY #14 tab 08/28/17 oxyCODONE/APAP 5/325 [Percocet] 0.5 tab PO HS PRN #7 tab 09/03/17 predniSONE [predniSONE TAPER] 30 mg PO DAILY 09/05/17 Laboratory Results: Laboratory Results 09/05/17 16:35 09/05/17 16:35 Medications Given: Albuterol/Ipratropium (Duoneb) 3 ml IH QID [facility] Stop: 03/04/18 20:59 Last Admin: 09/06/17 15:44 Dose: 3 ml Amphetamine/Dextroamphetamine (Adderall) 20 mg PO BID@ [facility] Stop: 03/05/18 07:59 Last Admin: 09/06/17 12:01 Dose: Not Given Atenolol (Tenormin) 50 mg PO DAILY [facility] Stop: 03/05/18 08:59 Last Admin: 09/06/17 07:43 Dose: 50 mg Azithromycin (Zithromax) 500 mg PO DAILY [facility] PRN Reason: Protocol Stop: 10/06/17 10:59 Last Admin: 09/06/17 13:24 Dose: 500 mg Dextrose (Dextrose 50% Syringe) 12.5 gm IVP PRN PRN PRN Reason: Hypoglycemia/DKA protocol Stop: 03/04/18 20:36 Last Admin: 09/06/17 05:55 Dose: 12.5 gm Dextrose/Sodium Chloride (D5w 1/2 Ns) 1,000 mls @ 25 mls/hr IV CONT [facility] Stop: 03/04/18 22:59 Last Admin: 09/06/17 06:12 Dose: 1,000 mls Sodium Chloride (Ns) 1,000 mls @ 125 mls/hr IV CONT [facility] Stop: 03/05/18 10:14 Last Admin: 09/06/17 13:22 Dose: 1,000 mls Insulin Human Lispro (Humalog Lispro) 0 unit SC TIDMEAL [facility] PRN Reason: Protocol Stop: 03/05/18 07:59 Last Admin: 09/06/17 11:46 Dose: 6 units Insulin Human NPH (Humulin N Syringe) 30 units SC BIDAC [facility] Stop: 03/05/18 10:14 Last Admin: 09/06/17 10:55 Dose: 30 units Lorazepam (Ativan) 0.5 - 1 mg PO Q8HRS PRN PRN Reason: Anxiety, Able to Take PO Stop: 03/04/18 18:12 Last Admin: 09/06/17 12:01 Dose: 0.5 mg Oxycodone/Acetaminophen (Percocet 5/325) 0.5 tab PO HS PRN PRN Reason: Cough, Moderate Stop: 09/15/17 18:30 Last Admin: 09/05/17 20:50 Dose: 0.5 tab Pantoprazole Sodium (Protonix) 40 mg PO BID [facility] Stop: 03/04/18 20:59 Last Admin: 09/06/17 07:43 Dose: 40 mg Discontinued Medications Albuterol/Ipratropium (Duoneb) 3 ml IH EDNOW ONE Stop: 09/05/17 15:58 Last Admin: 09/05/17 16:11 Dose: 3 ml Sodium Chloride (Ns) 1,000 mls @ 0 mls/hr IV EDNOW ONE; [facility] PRN Reason: Protocol Stop: 09/05/17 15:50 Last Admin: 09/05/17 16:46 Dose: 1,000 mls Sodium Chloride (Ns) 1,000 mls @ 0 mls/hr IV ONCE ONE; Wide Open PRN Reason: Protocol Stop: 09/05/17 17:39 Last Admin: 09/05/17 17:55 Dose: 1,000 mls Insulin Human Regular 100 unit / Miscellaneous Medication 1 ea/ Sodium Chloride 101 mls @ 3 mls/hr IV EDNOW ONE PRN Reason: Protocol Stop: 09/07/17 03:17 Last Admin: 09/05/17 18:13 Dose: 101 mls Ceftriaxone Sodium/Dextrose (Rocephin 1 Gm (Premix)) 50 mls @ 100 mls/hr IV DAILY@2000 [facility] PRN Reason: Protocol Stop: 10/05/17 19:59 Last Admin: 09/05/17 20:31 Dose: 50 mls Vancomycin HCl 1.5 gm/ (Dextrose) 250 mls @ 166.667 mls/hr IV Q12H [facility] Stop: 10/05/17 20:29 Last Admin: 09/06/17 08:24 Dose: 250 mls Potassium Chloride 10 meq/ (Sodium Chloride) 100 mls @ 100 mls/hr IV Q1H [facility] Stop: 09/06/17 02:29 Last Admin: 09/06/17 01:50 Dose: 100 mls Potassium Chloride/Sodium Chloride (Ns W/ 20 Kcl/L) 1,000 mls @ 250 mls/hr IV ONCE ONE Stop: 09/06/17 02:59 Last Admin: 09/06/17 00:15 Dose: 1,000 mls Potassium Chloride (Potassium Cl 10 Meq (Premix)) 100 mls @ 100 mls/hr IV Q1H [facility] Stop: 09/06/17 10:14 Last Admin: 09/06/17 07:35 Dose: Not Given Magnesium Sulfate/Dextrose (Magnesium Sulf 1 Gm (Premix)) 100 mls @ 100 mls/hr IV ONCE ONE Stop: 09/06/17 07:17 Last Admin: 09/06/17 06:51 Dose: 100 mls Insulin Human Regular (Humulin R) 10 unit IVP EDNOW ONE Stop: 09/05/17 17:39 Last Admin: 09/05/17 17:58 Dose: 10 units Ketorolac Tromethamine (Toradol) 30 mg IVP EDNOW ONE Stop: 09/05/17 17:13 Last Admin: 09/05/17 17:33 Dose: 30 mg Morphine Sulfate (Morphine) 4 mg IVP EDNOW ONE Stop: 09/05/17 15:50 Last Admin: 09/05/17 17:58 Dose: 4 mg Ondansetron HCl (Zofran) 4 mg IVP EDNOW ONE Stop: 09/05/17 15:50 Last Admin: 09/05/17 16:46 Dose: 4 mg Ondansetron HCl (Zofran Odt) 4 mg PO EDNOW ONE Stop: 09/05/17 16:22 Last Admin: 09/05/17 16:25 Dose: 4 mg Potassium Chloride (Potassium Chloride Oral Liquid) 40 meq PO ONCE ONE Stop: 09/06/17 06:31 Last Admin: 09/06/17 06:51 Dose: 40 meq Promethazine HCl (Phenergan) 12.5 mg IVP ONCE ONE Stop: 09/05/17 15:50 Last Admin: 09/05/17 16:45 Dose: 12.5 mg Departure - Departure Disposition: [facility] Acute Clinical Impression: Diabetic ketoacidosis Qualifiers: Diabetes mellitus type: type 1 Diabetes mellitus complication detail: without coma Qualified Code(s): E10.10 - Type 1 diabetes mellitus with ketoacidosis without coma Acute bronchitis Qualifiers: Bronchitis organism: unspecified organism Qualified Code(s): J20.9 - Acute bronchitis, unspecified Condition: Fair
[2017-09-05] MEDS ORDERED: ONDANSETRON DISINTEGRATING 4 MG TAB PO ONE (16:21)
[2017-09-05 16:49] LABS: PLATELET COUNT 455 10^3/uL (150-400)
[2017-09-05] MEDS ORDERED: KETOROLAC 30 MG/1 ML SDV IVP ONE (17:12)
[2017-09-05] MEDS ORDERED: INSULIN REGULAR HUMAN 100 UNIT/ML UNIT IVP ONE (17:38)
[2017-09-05] MEDS ORDERED: INSULIN REGULAR HUMAN 100 UNIT, COSIGN. REQUIRED 1 EA in NS 100 ML IV ONE (17:38)
[2017-09-05] MEDS ORDERED: ONDANSETRON DISINTEGRATING 4 MG TAB PO PRN (18:13)
[2017-09-05] MEDS ORDERED: ONDANSETRON 4 MG/2 ML VIAL IVP PRN (18:13)
[2017-09-05] MEDS ORDERED: ACETAMINOPHEN 325 MG TAB PO PRN (18:13)
[2017-09-05] MEDS ORDERED: IOPAMIDOL (ISOVUE 370) 100 ML BTL IV ONE (18:14)
[2017-09-05] MEDS ORDERED: OXYCODONE/APAP 5/325 TAB PO PRN (18:31)
--- NOTE | 2017-09-05 19:10 | GHP ---
[f rep st] HISTORY AND PHYSICAL DATE OF ADMISSION: 09/05/2017 CHIEF COMPLAINT: Cough. HISTORY OF PRESENT ILLNESS: This is a 47-year-old man who has been seen in the emergency department 2 times in the last week for similar complaints. He does have a history of MRSA pneumonia/empyema, s tatus post chest tube placement. He comes in with coughing, some possible post-tussive emesis, quest ionable fevers at home. He was started on prednisone a few days ago, he has been taking his insulin sporadically. He tends to titrate up and down on his insulin. Since starting the prednisone he does not feel any better. He has not had a course of antibiotics recently. PAST MEDICAL/SURGICAL HISTORY: 1. Diabetes mellitus type 1. 2. GERD. 3. Bipolar. It is mentioned in his chart that he denies having this diagnosis. 4. Chart history of narcotic addiction, though he also denies this. 5. History of MRSA pneumonia/empyema, status post chest tube placement at this hospital. MEDICATIONS: Please see medication reconciliation. ALLERGIES: Sulfa and DILIP inhibitors. SOCIAL HISTORY: He is not drinking alcohol. He is living by himself. FAMILY HISTORY: Reviewed and noncontributory. REVIEW OF SYSTEMS: A 10-point review of systems is conducted and is negative except per HPI. PHYSICAL EXAMINATION: VITAL SIGNS: Blood pressure 132/90, heart rate 103, respiration rate 20, satu rating 97% on room air. Temperature is 37.3. GENERAL: The patient is a very pleasant man who appea rs somewhat anxious, otherwise in no acute distress. HEENT: Shows him to be normocephalic, atraumat ic. CARDIOVASCULAR: Regular rate and rhythm. No murmurs, rubs, or gallops. PULMONARY: Shows him to have bilateral basilar rhonchi. I do not appreciate any rales or bronchial breath sounds. ABDOME N: Soft, nontender, nondistended. SKIN: Shows no rash. GENITOURINARY: No Benedict. NEUROLOGIC: Exa m shows him to be alert and oriented x3. He is moving all extremities. PSYCHIATRIC: Exam shows him to be anxious. LABORATORY: White count is 13,000, sodium 130, initial glucose 740. DATA: 1. I discussed this with Dr. Montaño in the ED. We will admit him to the ICU. 2. I personally viewed and interpreted his chest x-ray. There is a question of a left lingular pneu monia on his chest x-ray. IMPRESSION AND PLAN: 1. Suspected pneumonia: He has a history of methicillin-resistant Staphylococcus aureus pneumonia a nd empyema. I will cover him for now with vancomycin as well as Rocephin, check sputum culture, resp iratory viral panel, procalcitonin. I have ordered a CT scan to further evaluate. I will hold his s teroids as they are causing him significant anxiety at this point. 2. Diabetic ketoacidosis: We will start him on an insulin drip and DKA protocol following electroly lc very closely. Will triage him to the intensive care unit for now. 3. Anxiety: We will treat him with Ativan as needed. 4. Pseudohyponatremia: Should correct with improvement in his blood glucose. 5. Attention deficit hyperactivity disorder: Continue his Adderall. 6. Hypertension: Continue his atenolol. 7. Diabetes mellitus: He will be on protocol. He will need to be transitioned to subcu insulin at s ome point. 8. Gastroesophageal reflux disease: Protonix. BILLING: I spent a total of 40 minutes of critical care time concerning for endocrine as well as pul monary organ system failure. /[id number]/MODL
[2017-09-05] MEDS ORDERED: cefTRIAXone 1 GM/DEXTROSE 1 GM/50 ML BAG IV ONE (19:40)
[2017-09-05] MEDS: IPRATROPIUM/ALBUTEROL 3 ML DEYVIAL IH SCH (20:12)
[2017-09-05] MEDS: VANCOMYCIN 1.5 GM in D5W 250 ML IV SCH (20:31)
[2017-09-05] MEDS ORDERED: INSULIN REGULAR HUMAN 100 UNIT/ML UNIT SC PRN (20:37)
[2017-09-05] MEDS ORDERED: INSULIN REGULAR HUMAN 100 UNIT in NS 100 ML IV SCH (20:37)
[2017-09-05] MEDS ORDERED: D50W 25 GM/50 ML SYR IVP PRN (20:37)
[2017-09-05] MEDS ORDERED: PROTOCOL POTASSIUM 1 DOSE MISC PRN (20:38)
[2017-09-05] MEDS ORDERED: PROTOCOL MAGNESIUM 1 DOSE IV PRN (20:38)
[2017-09-05] MEDS ORDERED: D5W 1,000 ML IV SCH (20:45)
[2017-09-05] MEDS: PANTOPRAZOLE SODIUM 40 MG TAB PO SCH (20:50)
[2017-09-05] MEDS ORDERED: D5W 1/2 NS 1,000 ML IV SCH (21:00)
[2017-09-05] MEDS: POTASSIUM Cl (KCl) 10 MEQ in NS 100 ML IV SCH (22:40)
[2017-09-05] MEDS: D5W 1/2 NS 1,000 ML IV SCH (23:00)
[2017-09-05] MEDS ORDERED: NS W/ 20 KCl/L 1,000 ML IV ONE (23:00)
[2017-09-06] MEDS: POTASSIUM Cl (KCl) 10 MEQ in NS 100 ML IV SCH ×3 (00:14→01:50)
[2017-09-06] MEDS: LORazepam 0.5 MG TAB PO PRN ×3 (01:03→21:28)
[2017-09-06] MEDS: IPRATROPIUM/ALBUTEROL 3 ML DEYVIAL IH SCH ×4 (05:26→20:36)
[2017-09-06] MEDS: D5W 1/2 NS 1,000 ML IV SCH (06:12)
[2017-09-06] MEDS ORDERED: POTASSIUM Cl (KCl) 100 ML IV SCH (06:15)
[2017-09-06] MEDS ORDERED: MAGNESIUM SULF 1 GM/DEXTROSE 100 ML IV ONE (06:18)
[2017-09-06] MEDS ORDERED: POTASSIUM CL 20 MEQ/15 ML UDCUP PO ONE (06:30)
[2017-09-06] MEDS: INSULIN LISPRO 100 UNIT/ML SC SCH ×3 (07:42→17:53)
[2017-09-06] MEDS: PANTOPRAZOLE SODIUM 40 MG TAB PO SCH ×2 (07:43→21:28)
[2017-09-06] MEDS: ADDERALL 10 MG TAB PO SCH ×3 (07:43→12:01)
[2017-09-06] MEDS: ATENOLOL 25 MG TAB PO SCH (07:43)
[2017-09-06] MEDS: VANCOMYCIN 1.5 GM in D5W 250 ML IV SCH (08:24)
--- NOTE | 2017-09-06 10:14 | PDMN ---
Medical Necessity Medical necessity: est los>2mn for suspected PNA, DKA, anxiety, and pseudohyponatremia; admit to ICU, requires IV abx, further w/u, insulin gtt, DKA protocol; comorbid ADHD, HTN, DM, GERD, bipolar, and hx MRSA PNA/empyema; per order and H&P 09/05/17
[2017-09-06] MEDS ORDERED: NS 1,000 ML IV SCH (10:15)
--- NOTE | 2017-09-06 10:45 | HOSPPROG ---
Hospitalist Progress Note Assessment/Plan: #Acute DKA: in setting on acute infection. Gap closed, transition to home NPH, SSI #Reactive airways exacerbation: Nebs. No steroids with DKA #Hypokalemia: on protocol #Leukocytosis: due to PNA #CAP: h/o MRSA, but not hospitalized since January. Stop vanc. Cont CTX, Azithro. Procalcitonin pending #Acute hypoxic res failure: due to RAD exacerbation. Negative resp PCR, small opacity on CT will cont CTX, Azithro, 3Diabetic diet #DVT ppx: Lovenox #Disp: cont inpt admission for IV abx, nebs Subjective: feels bad. Still coughing. Objective: Vital Signs Temp Pulse Resp BP Pulse Ox 36.7 C 85 15 146/86 H 100 09/06/17 08:00 09/06/17 08:00 09/06/17 08:00 09/06/17 08:00 09/06/17 08:00 Microbiology 09/05/17 19:35 - Final Sputum, Expectorated Sputum Culture - Final Laboratory Results 09/06/17 05:45 09/05/17 09/06/17 09/07/17 05:59 05:59 05:59 Intake Total 5050 3450 Output Total 600 800 Balance 4450 2650 - Physical Exam Constitutional: no apparent distress, other (ill-appearing) Eyes: PERRL Ears, Nose, Mouth, Throat: dry mucous membranes Cardiovascular: regular rate and rhythym, no murmur, rub, or gallop Respiratory: rhonchi, other (expiratory wheeze, decreasd BS throughout) Gastrointestinal: normoactive bowel sounds, soft, non-tender abdomen Genitourinary: no bladder fullness Skin: warm Musculoskeletal: full muscle strength Neurologic: AAOx3, CN II-XII Intact ICD10 Worksheet Patient Problems: Problems Problem Status Onset Acute bronchitis Acute DKA (diabetic ketoacidoses) Acute Bipolar affective disorder, current episode depression Active Diabetes mellitus type 2 Active Bronchospasm Acute Empyema of left pleural space Acute Exacerbation of asthma Acute Hyperglycemia Acute Hypoxemia Acute Left lower lobe pneumonia Acute MRSA (methicillin resistant Staphylococcus aureus) Acute 10/30/15 Pneumonia Acute Pneumonia Acute Shortness of breath Acute
[2017-09-06] MEDS: INSULIN NPH HUMAN 100 UNITS/ML SYR SC SCH ×2 (10:55→17:53)
--- NOTE | 2017-09-06 12:27 | ASMTCASEMG ---
Living Arrangements What is your living Answers: Alone arrangement? Who do you live with? Type Of Residence What kind of residence do Answers: House you live in? Discharge Plan Comments Coordination Status Comments Notes: Patient is a 47yo single male with a hx of Bipolar, GERD, and diabetes who was admitted for suspected pneumonia, diabetic ketoacidosis, anxiety, and hypertension. No therapies have been ordered. Patient will most likely d/c independent. CM available if D/C needs arise. Date Signed: 09/06/2017 12:26 PM Electronically Signed By:Surekha Peña LCSW
[2017-09-06] MEDS: AZITHROMYCIN 250 MG TAB PO SCH (13:24)
[2017-09-07 05:34] LABS: PLATELET COUNT 415 10^3/uL (150-400)
[2017-09-07] MEDS: IPRATROPIUM/ALBUTEROL 3 ML DEYVIAL IH SCH ×4 (06:32→23:45)
--- NOTE | 2017-09-07 08:37 | HOSPPROG ---
Hospitalist Progress Note Assessment/Plan: #Acute DKA: resolved. #Uncontrolled DM -increase NPH to 40units BID, SSI #Reactive airways exacerbation: Nebs. No steroids with DKA #Hypokalemia: on protocol #Leukocytosis: due to PNA #CAP: h/o MRSA, but not hospitalized since January. Stop vanc. Cont CTX, Azithro. Procalcitonin pending #Acute hypoxic res failure: resolved. Due to RAD exacerbation., CXR. Negative resp PCR, small opacity on CT will cont CTX, Azithro, #Microcytic anemia: denies blood in stool. No hx of colon cancer. FOBT. May benefit from colonoscopy outpatient #DVT ppx: Lovenox #Disp: cont inpt admission for IV abx, nebs. May DC tomorrow if clinically improved Subjective: less SOB, improved cough Objective: Vital Signs Temp Pulse Resp BP Pulse Ox 36.8 C 98 16 129/78 H 96 09/07/17 08:00 09/07/17 08:00 09/07/17 08:00 09/07/17 08:00 09/07/17 08:00 Microbiology 09/06/17 11:45 Respiratory Panel (PCR) - Final Nasal, Sinus - Swab No Organism Detected 09/05/17 19:35 - Final Sputum, Expectorated Sputum Culture - Final Laboratory Results 09/07/17 04:51 09/06/17 10:12 09/06/17 09/07/17 09/08/17 05:59 05:59 05:59 Intake Total 5050 7950 Output Total 600 4800 Balance 4450 3150 - Physical Exam Constitutional: other (appears brighter) Eyes: PERRL Ears, Nose, Mouth, Throat: moist mucous membranes Cardiovascular: regular rate and rhythym Respiratory: expiratory wheeze, rhonchi, other (improved air movement) Gastrointestinal: normoactive bowel sounds, soft, non-tender abdomen Genitourinary: no bladder fullness Skin: warm Musculoskeletal: full muscle strength Neurologic: AAOx3, CN II-XII Intact Psychiatric: interacting appropriately ICD10 Worksheet Patient Problems: Problems Problem Status Onset Acute bronchitis Acute DKA (diabetic ketoacidoses) Acute Bipolar affective disorder, current episode depression Active Diabetes mellitus type 2 Active Bronchospasm Acute Empyema of left pleural space Acute Exacerbation of asthma Acute Hyperglycemia Acute Hypoxemia Acute Left lower lobe pneumonia Acute MRSA (methicillin resistant Staphylococcus aureus) Acute 10/30/15 Pneumonia Acute Pneumonia Acute Shortness of breath Acute
[2017-09-07] MEDS: INSULIN LISPRO 100 UNIT/ML SC SCH ×3 (09:02→16:35)
[2017-09-07] MEDS: AZITHROMYCIN 250 MG TAB PO SCH (09:05)
[2017-09-07] MEDS: INSULIN NPH HUMAN 100 UNITS/ML SYR SC SCH ×2 (09:05→17:41)
[2017-09-07] MEDS: ATENOLOL 25 MG TAB PO SCH (09:06)
[2017-09-07] MEDS: PANTOPRAZOLE SODIUM 40 MG TAB PO SCH ×2 (09:07→20:17)
[2017-09-07] MEDS ORDERED: INSULIN NPH HUMAN 100 UNITS/ML SYR SC ONE (09:12)
[2017-09-07] MEDS: ADDERALL 10 MG TAB PO SCH ×2 (09:58→13:03)
[2017-09-07] MEDS: LORazepam 0.5 MG TAB PO PRN ×2 (12:02→20:16)
[2017-09-07] MEDS ORDERED: MAGNESIUM SULF 1 GM/DEXTROSE 100 ML IV ONE (13:44)
[2017-09-07] MEDS: ACETYLCYSTEINE 10% IH/PO 4 ML VIAL IH SCH (16:52)
[2017-09-07] MEDS: FERROUS SULFATE 325 MG TAB PO SCH (20:16)
[2017-09-08] MEDS: ACETYLCYSTEINE 10% IH/PO 4 ML VIAL IH SCH ×3 (00:13→09:54)
[2017-09-08 05:22] LABS: PLATELET COUNT 412 10^3/uL (150-400)
[2017-09-08] MEDS: IPRATROPIUM/ALBUTEROL 3 ML DEYVIAL IH SCH ×2 (06:38→09:43)
[2017-09-08 07:23] VITALS: BP 151/102; TEMP 98.3
[2017-09-08] MEDS: INSULIN LISPRO 100 UNIT/ML SC SCH ×2 (07:40→10:54)
[2017-09-08] MEDS: INSULIN NPH HUMAN 100 UNITS/ML SYR SC SCH (07:41)
[2017-09-08] MEDS: ATENOLOL 25 MG TAB PO SCH (07:43)
[2017-09-08] MEDS: FERROUS SULFATE 325 MG TAB PO SCH (07:45)
[2017-09-08] MEDS: AZITHROMYCIN 250 MG TAB PO SCH (07:45)
[2017-09-08] MEDS: PANTOPRAZOLE SODIUM 40 MG TAB PO SCH (07:45)
[2017-09-08] MEDS: ADDERALL 10 MG TAB PO SCH ×2 (07:58→11:09)
[2017-09-08] MEDS ORDERED: HYDROcodone/CPM TUSSIONEX 5 ML UDSYR PO PRN (08:52)
--- NOTE | 2017-09-08 08:54 | HOSPPROG ---
Hospitalist Progress Note Assessment/Plan: #Acute DKA: resolved. #Uncontrolled DM -improved sugars with increase NPH to 40units BID, SSI #Reactive airways exacerbation: Nebs. No steroids with DKA #Hypokalemia: on protocol #Leukocytosis: resolved #CAP: h/o MRSA, but not hospitalized since January. Doing well on CAP coverage. Change to LQ for total of 7 days abx #Acute hypoxic res failure: resolved. Due to RAD exacerbation., CXR. Negative resp PCR, small opacity on CT will cont CTX, Azithro, #Microcytic anemia: denies blood in stool. No hx of colon cancer. FOBT. May benefit from colonoscopy outpatient #DVT ppx: Lovenox #Disp: DC today Subjective: coughing. Flippin warm today Objective: Vital Signs Temp Pulse Resp BP Pulse Ox 36.8 C 99 16 151/102 H 91 L 09/08/17 07:21 09/08/17 07:43 09/08/17 07:21 09/08/17 07:43 09/08/17 07:21 Laboratory Results 09/08/17 04:29 09/07/17 18:17 09/07/17 09/08/17 09/09/17 05:59 05:59 05:59 Intake Total 7950 Output Total 4800 Balance 3150 - Physical Exam Constitutional: no apparent distress Eyes: PERRL Ears, Nose, Mouth, Throat: moist mucous membranes Cardiovascular: regular rate and rhythym, no murmur, rub, or gallop, No edema Respiratory: rhonchi (cough with rhonchi. Moving more air today), other Gastrointestinal: normoactive bowel sounds, soft, non-tender abdomen Genitourinary: no bladder fullness Skin: warm Musculoskeletal: full muscle strength Neurologic: AAOx3, CN II-XII Intact Psychiatric: interacting appropriately, anxious ICD10 Worksheet Patient Problems: Problems Problem Status Onset Acute bronchitis Acute DKA (diabetic ketoacidoses) Acute Bipolar affective disorder, current episode depression Active Diabetes mellitus type 2 Active Bronchospasm Acute Empyema of left pleural space Acute Exacerbation of asthma Acute Hyperglycemia Acute Hypoxemia Acute Left lower lobe pneumonia Acute MRSA (methicillin resistant Staphylococcus aureus) Acute 10/30/15 Pneumonia Acute Pneumonia Acute Shortness of breath Acute
[2017-09-08] MEDS ORDERED: MAGNESIUM SULF 1 GM/DEXTROSE 100 ML IV ONE (09:00)
[2017-09-08] MEDS ORDERED: guaiFENesin 600 MG TAB.ER PO SCH (09:00)
[2017-09-08 09:54] VITALS: PULSE 89; RESP 14; O2SAT 95
--- NOTE | 2017-09-08 13:41 | GDS ---
[f rep st] DISCHARGE SUMMARY DISCHARGE DIAGNOSES: 1. Acute diabetic ketoacidosis. 2. Uncontrolled diabetes. 3. Reactive airways disease exacerbation. 4. Hypokalemia. 5. Leukocytosis. 6. Community-acquired pneumonia with history of methicillin-resistant Staphylococcus aureus. 7. Acute hypoxic respiratory failure. 8. Microcytic anemia. 9. Attention deficit hyperactivity disorder. 10. Hypertension. 11. Gastroesophageal reflux disease. 12. Bipolar disorder. HISTORY OF PRESENT ILLNESS: A 47-year-old male with history of MRSA pneumonia/ empyema, who presented with cough, posttussive emesis, and subjective fevers at home. He was started on prednisone a few days ago and has been taking his insulin sporadically. In the emergency room, he was noted to be in DKA and transferred to the ICU for further care. HOSPITAL COURSE BY PROBLEM: 1. Acute DKA: Likely triggered with community-acquired pneumonia and inconsistency with home insulin. His gap quickly closed on insulin drip. His NPH was increased to 40 units twice daily at discharge. If does note lows, he was instructed to decrease down to 35 units twice daily and follow up with his PCP. 2. Reactive airway exacerbation, was treated with nebulizers, but no steroids in the setting of DKA. He is now on room air, improved. 3. Hypokalemia, repleted. 4. Leukocytosis secondary to community-acquired pneumonia. 5. Community-acquired pneumonia: He does have a history of MRSA empyema but not hospitalized since January. He has been doing his symptoms, leukocytosis improved quickly on azithromycin and ceftriaxone. We will change to Levaquin for a total of 7 days antibiotics. 6. Acute hypoxic respiratory failure: Secondary to community-acquired pneumonia and reactive airway disease exacerbation. He had a negative respiratory panel. 7. Microcytic/iron-deficiency anemia: MCV 77. He denies any blood in his stool. No family history of colon cancer. A fecal occult blood was pending at time of discharge. I would recommend a colonoscopy as an outpatient. Will start on iron supplementation. 8. Disposition: Patient is stable for discharge home. 9. New medications: Ferrous sulfate 325 mg twice daily, Levaquin 750 mg for 4 days, guaifenesin. FOLLOWUP: 1. Primary physician. 2. Further evaluation for microcystic anemia, possibly colonoscopy. 3. Follow up with Urology for possible cystoscopy. /[id number]/MODL MTDD
--- NOTE | 2017-09-08 14:19 | ASMTCMCOM ---
CM Note CM Note Notes: Patient medically stable to discharge home independently. CM available should needs arise. Date Signed: 09/08/2017 02:19 PM Electronically Signed By:Jasmina Sandoval RN
--- NOTE | 2017-09-08 17:04 | ASDISCHSUM ---
Discharge Information Plan Status:Home with No Needs Medically Cleared to Leave:09/07/2017 Discharge Date:09/08/2017 02:20 PM CM D/C Disposition:Home, Routine, Self-Care ADT D/C Disposition:Home, Routine, Self-Care Projected Discharge Date:09/08/2017 02:20 PM Transportation at D/C: Discharge Delay Reason: Follow-Up Date:09/08/2017 02:20 PM Discharge Slot: Final Diagnosis: Placement Information Patient Contact Information Contact Name:LALIT Relationship:Mother Address: Work Phone: City: [facility] Phone: State/[place] Code: Email: Financial Information Financial Class: Primary Plan Desc:[employer] [place] Primary Plan Number:[id number] Secondary Plan Desc: Secondary Plan Number: Assessment Information [facility] Initial CM Assessment Living Arrangements What is your living Answers: Alone arrangement? Who do you live with? Type Of Residence What kind of residence do Answers: House you live in? Discharge Plan Comments Coordination Status Comments Notes: Patient is a 47yo single male with a hx of Bipolar, GERD, and diabetes who was admitted for suspected pneumonia, diabetic ketoacidosis, anxiety, and hypertension. No therapies have been ordered. Patient will most likely d/c independent. CM available if D/C needs arise. Date Signed: 09/06/2017 12:26 PM Electronically Signed By:Surekha Peña LCSW [facility] CM Progress Note CM Note CM Note Notes: Patient medically stable to discharge home independently. CM available should needs arise. Date Signed: 09/08/2017 02:19 PM Electronically Signed By:Jasmina Sandoval RN LACE LACE Length of stay for Answers: 2 days current admission Acuity / Level of Care Answers: Was the patient admitted to hospital via the emergency department? Yes: Emergency dept visits in Answers: 1 last 6 months Score: 6 Date Signed: 09/08/2017 02:21 PM Electronically Signed By:Jasmina Sandoval RN Intervention Information
== END 2017-09-08 14:20 | disposition home or self-care (01) | DRG 637 ==
LOC: F2N 19:50 → F3E 09-06 17:13
PROVIDERS: ADMIT Student in an Organized Health Care Education/Training Program; ATTEND Internal Medicine
DX: E10.10 Type 1 diabetes mellitus with ketoacidosis without coma (principal); J45.901 Unspecified asthma with (acute) exacerbation; E87.6 Hypokalemia; J18.9 Pneumonia, unspecified organism; J96.01 Acute respiratory failure with hypoxia; D50.9 Iron deficiency anemia, unspecified; K21.9 Gastro-esophageal reflux disease without esophagitis; Z87.891 Personal history of nicotine dependence
CPT/HCPCS: 82947-QW; 96374; J0696; J1815; J1885; J2405; J2550; J3370; J3475; Q9967

== ENCOUNTER 2018-03-02 09:24 | Inpatient (IN) | payer MEDICAID ==
--- NOTE | 2018-03-02 10:02 | EDPHY ---
H & P Stated Complaint: SOB since Thur Time Seen by Provider: 03/02/18 09:44 HPI/ROS: Chief Complaint: Shortness of breath HPI: 47-year-old male with a history of type 2 diabetes, asthma, empyema in the past presenting with 3 days of worsening cough and shortness of breath. Cough is nonproductive. Patient states that he started himself on prednisone 3 days ago because his breathing was getting worse. He is using his Combivent inhaler more frequently. States that because he started on the prednisone his blood sugars have been out of control despite him increasing his insulin doses. He checked his oxygen at home on his own pulse oximeter nose sat was 90. Has having some sweating at night. ROS: 10 point Review of Systems is negative except as noted in the HPI. PMH: Type 2 diabetes, asthma, pneumonia and empyema in the past Social History: No smoking, no alcohol, no recreational drug use Family History: non-contributory Physical Exam: Gen: Awake, Alert, No Distress HEENT: Nose: no rhinorrhea Eyes: PERRLA, EOMI Mouth: Moist mucosa Neck: Supple, no JVD Chest: nontender, tachypneic, no rales or rhonchi, moving air, diffuse expiratory wheezing Heart: S1, S2 normal, no murmur Abd: Soft, non-tender, no guarding Back: no CVA tenderness, no midline tenderness Ext: no edema, non-tender Skin: no rash Neuro: CN II-XII intact, Sensation grossly intact, Strength 5/5 in bilateral upper and lower extremities - Personal History Current Tetanus/Diphtheria Vaccine: Yes Tetanus Vaccine Date: 2013 - Medical/Surgical History Hx Asthma: No Hx Chronic Respiratory Disease: Yes Hx Diabetes: Yes Hx Cardiac Disease: No Hx Renal Disease: No Hx Cirrhosis: No Hx Alcoholism: No Hx HIV/AIDS: No Hx Splenectomy or Spleen Trauma: No Other PMH: PMH: DIABETES,KIDNEY STONES, GERD, PNA WITH MRSA, EMPYEMA, htn, adhd, depression, spontaneous pnumothorax w/ chest tube placment - Social History Smoking Status: Former smoker Constitutional: Initial Vital Signs Temperature (C) 36.3 C 03/02/18 09:27 Heart Rate 124 H 03/02/18 09:27 Respiratory Rate 24 H 03/02/18 09:27 Blood Pressure 147/90 H 03/02/18 09:27 O2 Sat (%) 98 03/02/18 09:27 O2 Delivery Mode Room Air Allergies/Adverse Reactions: Sulfa (Sulfonamide Antibiotics) [Sulfa(Sulfonamide Antibiotics)] Allergy (Severe , Verified 03/02/18 09:33) Anaphylaxis DILIP Inhibitors Allergy (Verified 03/02/18 09:33) Home Medications: Medication Instructions Recorded Pantoprazole Sodium [Protonix 40mg 40 mg PO BID 01/23/17 (*)] Amphet Asp and D/Amphet [Adderall 20 mg PO BID@,12 #60 tab 01/25/17 20 mg (*)] Insulin Regular, Human [HUMULIN R] 2 - 7 unit IJ AC #1 vial 01/25/17 Insulin NPH Human Isophane 40 unit SQ BIDAC #0 09/08/17 [Humulin N] Clonidine 03/02/18 Medical Decision Making - Diagnostics Imaging Results: Imaging Impressions Chest X-Ray 03/02/18 09:56 Impression: Chest negative for acute abnormality with no sepsis source identified. ED Course/Re-evaluation: Patient meets SIRS criteria. I anticipate his white blood cell count will be elevated because he has been taking prednisone. Will order lactic acid out and chest x-ray to evaluate. Chest x-ray does not show acute infiltrate. Patient's blood sugar and anion gap acidosis are noted. I have started him on a DKA protocol. Will plan to admit to the ICU for further care. Believe the patient has a acute asthma exacerbation. DKA was induced by the steroids that the patient started himself. - Data Points Laboratory Results: Laboratory Results 03/02/18 10:10 03/02/18 10:10 03/02/18 03/02/18 03/02/18 10:10 10:10 10:10 WBC 8.43 10^3/uL 10^3/uL (3.80-9.50) RBC 5.64 10^6/uL 10^6/uL (4.40-6.38) Hgb 17.7 g/dL H g/dL (13.7-17.5) Hct 49.7 % % (40.0-51.0) MCV 88.1 fL fL (81.5-99.8) MCH 31.4 pg pg (27.9-34.1) MCHC 35.6 g/dL g/dL (32.4-36.7) RDW 12.4 % % (11.5-15.2) Plt Count 325 10^3/uL 10^3/uL (150-400) MPV 9.7 fL fL (8.7-11.7) Neut % (Auto) 75.1 % H % (39.3-74.2) Lymph % (Auto) 17.8 % % (15.0-45.0) [place] % (Auto) 5.1 % % (4.5-13.0) Eos % (Auto) 1.1 % % (0.6-7.6) Baso % (Auto) 0.7 % % (0.3-1.7) Nucleat RBC Rel Count 0.0 % % (0.0-0.2) Absolute Neuts (auto) 6.33 10^3/uL 10^3/uL (1.70-6.50) Absolute Lymphs (auto) 1.50 10^3/uL 10^3/uL (1.00-3.00) Absolute Monos (auto) 0.43 10^3/uL 10^3/uL (0.30-0.80) Absolute Eos (auto) 0.09 10^3/uL 10^3/uL (0.03-0.40) Absolute Basos (auto) 0.06 10^3/uL 10^3/uL (0.02-0.10) Absolute Nucleated RBC 0.00 10^3/uL 10^3/uL (0-0.01) Immature Gran % 0.2 % % (0.0-1.1) Immature Gran # 0.02 10^3/uL 10^3/uL (0.00-0.10) PT 13.3 SEC SEC (12.0-15.0) INR 0.99 (0.83-1.16) APTT 25.3 SEC SEC (23.0-38.0) VBG Lactic Acid Sodium 130 mEq/L L mEq/L (135-145) Potassium 5.3 mEq/L H mEq/L (3.3-5.0) Chloride 94 mEq/L L mEq/L (97-110) Carbon Dioxide 12 mEq/l L mEq/l (22-31) Anion Gap 24 mEq/L H mEq/L (8-16) BUN 17 mg/dL mg/dL (7-23) Creatinine 1.0 mg/dL mg/dL (0.7-1.3) Estimated GFR > 60 Glucose 651 mg/dL H* mg/dL (70-100) Calcium 10.1 mg/dL mg/dL (8.5-10.4) Total Bilirubin 1.0 mg/dL mg/dL (0.1-1.4) 03/02/18 10:10 WBC RBC Hgb Hct MCV MCH MCHC RDW Plt Count MPV Neut % (Auto) Lymph % (Auto) [place] % (Auto) Eos % (Auto) Baso % (Auto) Nucleat RBC Rel Count Absolute Neuts (auto) Absolute Lymphs (auto) Absolute Monos (auto) Absolute Eos (auto) Absolute Basos (auto) Absolute Nucleated RBC Immature Gran % Immature Gran # PT INR APTT VBG Lactic Acid 1.6 mmol/L mmol/L (0.7-2.1) Sodium Potassium Chloride Carbon Dioxide Anion Gap BUN Creatinine Estimated GFR Glucose Calcium Total Bilirubin Medications Given: Discontinued Medications Albuterol/Ipratropium (Duoneb) 3 ml IH EDNOW ONE Stop: 03/02/18 10:25 Last Admin: 03/02/18 10:34 Dose: 3 ml Sodium Chloride (Ns) 1,000 mls @ 0 mls/hr IV ONCE ONE PRN Reason: Wide Open Stop: 03/02/18 10:23 Last Admin: 03/02/18 10:33 Dose: 1,000 mls Ondansetron HCl (Zofran) 4 mg IVP EDNOW ONE Stop: 03/02/18 10:24 Last Admin: 03/02/18 10:33 Dose: 4 mg Departure - Departure Disposition: [facility] Inpatient Acute Clinical Impression: DKA (diabetic ketoacidoses), Exacerbation of asthma Condition: Fair Referrals: NONE *PRIMARY CARE P,. [Primary Care Provider] - As per Instructions
[2018-03-02] MEDS ORDERED: NS 1,000 ML IV ONE ×3 (10:22→12:05)
[2018-03-02] MEDS ORDERED: ONDANSETRON 4 MG/2 ML VIAL IVP ONE (10:23)
[2018-03-02] MEDS ORDERED: IPRATROPIUM/ALBUTEROL 3 ML DEYVIAL IH ONE (10:24)
[2018-03-02 10:34] LABS: PLATELET COUNT 325 10^3/uL (150-400)
[2018-03-02 10:48] LABS: INR 0.99 (0.83-1.16); PROTIME(PATIENT) 13.3 SEC (12.0-15.0)
[2018-03-02] MEDS ORDERED: D10W 1,000 ML IV ONE (11:05)
[2018-03-02] MEDS ORDERED: D50W 25 GM/50 ML SYR IVP PRN ×2 (11:05→14:00)
[2018-03-02] MEDS ORDERED: INSULIN REGULAR HUMAN 100 UNIT, COSIGN. REQUIRED 1 EA in NS 100 ML IV ONE (11:05)
[2018-03-02] MEDS ORDERED: IPRATROPIUM/ALBUTEROL 3 ML DEYVIAL IH PRN ×2 (13:05→14:47)
[2018-03-02] MEDS ORDERED: FAMOTIDINE 20 MG TAB PO SCH (13:15)
[2018-03-02] MEDS ORDERED: NS 1,000 ML IV SCH ×2 (13:15→14:00)
[2018-03-02] MEDS ORDERED: INSULIN REGULAR HUMAN 100 UNIT in NS 100 ML IV SCH ×2 (14:00→15:00)
[2018-03-02] MEDS ORDERED: NS 500 ML IV ONE ×2 (14:00)
[2018-03-02] MEDS ORDERED: D10W 1,000 ML IV SCH (14:00)
[2018-03-02] MEDS ORDERED: RN:ENTER POTASSIUM ICU PROTOCOL ON WORKLIST MISC ONE (14:00)
[2018-03-02] MEDS ORDERED: PROTOCOL POTASSIUM 1 DOSE MISC PRN (14:08)
[2018-03-02] MEDS ORDERED: POTASSIUM Cl (KCl) 50 ML IV ONE (14:37)
--- NOTE | 2018-03-02 14:43 | ASMTLACE ---
UZMA Acuity / Level of Answers: Yes Care: Did the patient have an inpatient admission? Comorbidities - select Answers: Chronic pulmonary disease all that apply Diabetes (uncontrolled or controlled) # of Emergency department Answers: 3-4 visits in the last 6 months Social determinants Answers: Mental health diagnosis (anxiety, depression, pers onality disorders, etc.) Score: 12 Date Signed: 03/02/2018 02:42 PM Electronically Signed By:Kirsty Gallardo LCSW
[2018-03-02] MEDS ORDERED: ONDANSETRON 4 MG/2 ML VIAL IVP PRN (14:46)
--- NOTE | 2018-03-02 14:49 | ASMTCMCOM ---
CM Note CM Note Notes: 47yr old male admitted for DKA, Asthma exascerbation. He has a Hx of DM-2, GERD, Asthma, PNA w/MRSA, Empyema, HTN, ADHD/Depression/Bipolar, former smoker. Patient's mother is his Medical Decision maker. He lives alone. May not have discharge needs. Date Signed: 03/02/2018 02:48 PM Electronically Signed By:Kirsty Gallardo LCSW
[2018-03-02] MEDS ORDERED: POTASSIUM Cl (KCl) 100 ML IV SCH (15:00)
--- NOTE | 2018-03-02 15:04 | ASMTCMCOM ---
CM Note CM Note Notes: Pt presented to the Emergency Department with shortness of breath. History includes diabetes type II, asthma, empyema, pneumonia, bipolar disorder. Pt admitted for DKA, and an asthma exacerbation. Pt is single and lives alone. His mother is his emergency contact. Discharge needs remain unclear at this time. CM will continue to follow. Current Discharge Plan: To be determined Date Signed: 03/02/2018 02:53 PM Electronically Signed By:Shama Beckwith RN
[2018-03-02] MEDS: POTASSIUM Cl (KCl) 10 MEQ in NS 100 ML IV SCH ×2 (15:23→16:24)
--- NOTE | 2018-03-02 15:27 | GHP ---
[f rep st] HISTORY AND PHYSICAL DATE OF ADMISSION: 03/02/2018 CHIEF COMPLAINT: Elevated glucose readings. HISTORY OF PRESENT ILLNESS: Mr. Richard is a pleasant 47-year-old gentleman with a past medical histor y of type 1 diabetes mellitus and uncertain pulmonary condition, currently being evaluated at [facility], who started noticing increased wheezing and work of breathing 3 days prior to hospitalizati on. He states that his nebulizers were not effective enough in helping to improve his breathing, so he started taking prednisone. Unfortunately because of a significant elevation of his glucose readin , he presented to the emergency room and was diagnosed with diabetic ketoacidosis, started on insul in drip and IV fluids and is being admitted for further management. The patient states he normally t akes NPH insulin 50 units twice a day along with a regular insulin sliding scale. PAST MEDICAL HISTORY: 1. Diabetes mellitus type 1, uncertain control. 2. Hyperlipidemia. 3. Esophageal reflux. 4. Gastroparesis. 5. Bipolar disorder. 6. History of MRSA pneumonia with empyema. 7. Uncertain pulmonary condition, currently being evaluated at [facility]. PAST SURGICAL HISTORY: 1. Appendectomy. 2. Chest tube. MEDICATIONS: 1. NPH insulin 50 units twice a day. 2. Regular insulin sliding scale. 3. Simvastatin 40 mg nightly. 4. Omeprazole 40 mg daily. 5. DuoNeb nebulizers as needed. 6. Clonidine 0.2 mg 3 times a day. 7. Adderall 20 mg twice a day. ALLERGIES: 1. Sulfa drugs. 2. DILIP inhibitors. FAMILY HISTORY: Mother and father are both living. His father has a history of coronary artery dise ase status post CABG and he has also had a history of stroke. Mother is reportedly healthy without a ny chronic medical issues. No report of any colon cancer in the family. SOCIAL HISTORY: The patient is single. He has no children. He is a former smoker for approximately 7 years, but quit 2-3 years ago. He does not drink alcohol. Power of commonwealth attorney would be his mother and father. CODE STATUS: Reviewed. The patient is a full code status. REVIEW OF SYSTEMS: CONSTITUTIONAL: No report of any fevers or chills. ENT: No report of any recen t increase in nasal congestion, but has noted a cough and wheezing and increased shortness of breath. CARDIOVASCULAR: No complaints of any chest pressure. RESPIRATORY: As detailed above. GI: He reports a history of gastroparesis and some nausea today, b ut otherwise no bloody stools or melena. He did have 1 episode of emesis in the emergency room, whic h was nonbloody. : No report of any difficulty with urination. NEUROLOGIC: No complaints of any headaches or focal weakness. HEMATOLOGIC: No history of any deep vein thrombosis or pulmonary embol ism. PSYCHIATRIC: The patient reports a history of attention deficit disorder. His records reflect a bipolar diagnosis as well. SKIN: No new skin rashes. MUSCULOSKELETAL: He reports recent bilate ral joint pains and sounds like he is undergoing an autoimmune workup at [facility] Over the p ast week, though no focal joint pain or swelling. PHYSICAL EXAM: VITAL SIGNS: Temperature 36.3, blood pressure 147/90, heart rate 124, respiratory of 24, saturating 98% on room air. GENERAL: Patient appears comfortable. He is awake, alert, convers ant, no acute distress. HEENT: Extraocular movements appear intact. No scleral icterus is noted. Mucous membranes dry. NECK: Supple. No adenopathy. No thyroid enlargement noted. CHEST: Mild to moderate diffuse wheezing noted throughout. Good breath sounds throughout. No dullness to percussi on. HEART: Regular. No murmurs appreciated. ABDOMEN: Soft, nontender, nondistended. Normal lima l sounds. : No Benedict catheter in place. EXTREMITIES: No significant pitting edema. NEUROLOGIC: Cranial nerves 2-12 appear grossly intact with 5/5 strength in extremities. LABS: White blood cell count is 8, hemoglobin 17, platelets 325. Sodium is 130, potassium 5.3, chlo ride 94, bicarb 12, BUN 17, creatinine 1.0, glucose of 651, AST 15, ALT 26, alkaline phosphatase 126, bilirubin is 0.7. INR 0.9, PTT 25. ABGs from venous blood shows a pH of 7.2/43/42/20. Beta hydrox ybutyrate elevated at 4.0. Lactic acid 1.5. IMAGING: Chest x-ray did not show any acute pulmonary infiltrates. ASSESSMENT AND PLAN: 1. Diabetic ketoacidosis. Orders for the DKA protocol have been activated. Continue electrolyte mo nitoring per the protocol as well as some IV fluids. We will hold his home insulin for now and jose daniel diaz get transitioning over to NPH tomorrow. Care seems to be the initiation of prednisone use for his respiratory complaints. 2. Hyponatremia, likely combination of pseudohyponatremia as well as hypovolemia. Trend with IV flu ids and correction of his glucose levels. 3. Hyperkalemia. Monitor for now with IV fluid resuscitation. 4. Iron deficiency. This was noted on prior hospitalization in August of this year. Colonoscopy h as been recommended. We will recheck levels with tomorrow morning's labs. 5. Low back pain. Patient apparently is being evaluated as well through his primary care provider marisol Sotner for low back pain. Physical therapy was recommended. We will order for physical therapy wh ile he is here in the hospital. 6. Diabetes mellitus type 2, uncertain control. We will check an A1c with his morning labs and we w ill hold his baseline NPH 50 twice a day and regular insulin sliding scale for now. 7. Hyperlipidemia. Continue simvastatin. 8. Attention deficit disorder. Continue with clonidine. Will hold Adderall. 9. Deep venous thrombosis prophylaxis. Lovenox. 10. Disposition. The patient is a full code status. I will admit him under inpatient status. /[id number]/MODL
[2018-03-02] MEDS: LORazepam 1 MG TAB PO PRN (15:29)
[2018-03-02] MEDS: IPRATROPIUM/ALBUTEROL 4GM MDI IH SCH ×2 (18:32→21:25)
--- NOTE | 2018-03-02 18:49 | PDMN ---
Medical Necessity Medical necessity: Pt meets IP criteria per MD & MCG M-130; est los >2 mn for DKA w/glucose of 651 & tachycardia; requiring ICU monitoring, IVFs, Insulin drip & followup labs; hx diabetes; per H&P & order 03/02/18
[2018-03-02] MEDS: BUDESONIDE 0.5 MG/2 ML AMPUL.NEB IH SCH (21:18)
[2018-03-02] MEDS ORDERED: D50W 25 GM/50 ML VIAL IVP PRN (21:20)
[2018-03-02] MEDS: INSULIN NPH HUMAN 100 UNITS/ML SYR SC SCH (22:19)
[2018-03-02] MEDS: ATORVASTATIN CALCIUM 20 MG TAB PO SCH (22:19)
[2018-03-02] MEDS: oxyCODONE IR 5 MG TAB PO PRN (22:20)
[2018-03-03] MEDS: LORazepam 1 MG TAB PO PRN ×2 (01:33→21:07)
[2018-03-03] MEDS: oxyCODONE IR 5 MG TAB PO PRN ×4 (05:10→21:06)
[2018-03-03 05:33] LABS: PLATELET COUNT 259 10^3/uL (150-400)
[2018-03-03] MEDS: IPRATROPIUM/ALBUTEROL 4GM MDI IH SCH ×3 (05:54→17:15)
[2018-03-03] MEDS: INSULIN NPH HUMAN 100 UNITS/ML SYR SC SCH ×2 (07:56→17:02)
[2018-03-03] MEDS: BUDESONIDE 0.5 MG/2 ML AMPUL.NEB IH SCH ×2 (08:02→21:34)
[2018-03-03] MEDS: INSULIN LISPRO 100 UNIT/ML SC SCH ×3 (08:30→17:57)
[2018-03-03] MEDS: ENOXAPARIN 40 MG/0.4 ML SYR SC SCH (08:31)
[2018-03-03] MEDS: PANTOPRAZOLE SODIUM 40 MG TAB PO SCH (08:32)
[2018-03-03] MEDS ORDERED: SENNOSIDES 1 TAB PO PRN (09:08)
[2018-03-03] MEDS ORDERED: POTASSIUM Cl (KCl) 10 MEQ in D5W 50 ML IV ONE (10:00)
--- NOTE | 2018-03-03 16:18 | HOSPPROG ---
Hospitalist Progress Note Assessment/Plan: Subjective Follow-up on diabetic ketoacidosis. Overnight patient's blood glucose readings were going below 100 so the insulin drip was turned off. This morning patient states he feels generally fatigued but does feel like his breathing is little bit better. No nausea or vomiting and he is tolerating a diet without any difficulty. His typical dosing of NPH was resumed today along with sliding scale insulin. Objective Vital signs as detailed below Exam General-patient appears comfortable he is awake alert conversant no acute distress Heart-regular rate and rhythm no murmurs noted Lungs-normal respiratory effort. Less wheeze as compared to yesterday's exam Abdomen-soft nontender nondistended -no Benedict catheter in place Extremities-no significant edema of the lower extremities no calf pain with palpation Labs as detailed below Assessment and plan Diabetic ketoacidosis-resolved at this point time with normal beta hydroxybutyrate. Serum bicarb level also normalizing. Glucose readings throughout the day today after transitioning off the insulin drip and on to his normal NPH appear much better controlled. I suspect the trigger of the DKA was using prednisone which he took for his breathing. Hyponatremia-suspecting combination of pseudo hyponatremia as well as hypovolemia. Improved today continue with IV fluids for another 24 hr and then likely could stop as long as oral intake is adequate. Hyperkalemia-resolved. potassium level of 4.3 today. Reactive airway disease-his exact underlying pulmonary condition is uncertain. He is having ongoing workup done at [facility]. He does however have wheezing on exam. I recommend that we avoid prednisone considering the DKA. I did start Pulmicort nebulizers during this hospitalization and seems to have had some benefit today. I recommend that we continue with this along with DuoNeb nebulizers. Iron deficiency-his iron studies look better they did previously. Colonoscopy has been recommended in the past. Diabetes mellitus type 2-uncontrolled with a hemoglobin A1c of 11. Thus far his glucose readings look reasonable with the current NPH and sliding scale insulin. Hyperlipidemia-continue statin therapy. Attention deficit disorder-clonidine has been continued for this indication. Adderall has been held. Patient was okay with holding Adderall during the hospitalization. DVT prophylaxis-Lovenox. Disposition-will consult Physical therapy to get an assessment of his balance and strength but I would anticipate he will be discharged back to home if he continues to stabilize in the coming 1-2 days. Objective: Vital Signs Temp Pulse Resp BP Pulse Ox 36.6 C 98 16 106/75 98 03/03/18 07:40 03/03/18 13:24 03/03/18 13:24 03/03/18 07:40 03/03/18 13:24 Laboratory Results 03/03/18 05:00 03/03/18 05:00 03/02/18 03/03/18 03/04/18 05:59 05:59 05:59 Intake Total 7891 Output Total 4280 Balance 3611 PT 13.3 SEC (12.0-15.0) 03/02/18 10:10 INR 0.99 (0.83-1.16) 03/02/18 10:10 ICD10 Worksheet Patient Problems: Problems Problem Status Onset DKA (diabetic ketoacidoses) Acute Exacerbation of asthma Acute Bipolar affective disorder, current episode depression Active Diabetes mellitus type 2 Active Acute bronchitis Acute Bronchospasm Acute Empyema of left pleural space Acute Hyperglycemia Acute Hypoxemia Acute Left lower lobe pneumonia Acute MRSA (methicillin resistant Staphylococcus aureus) Acute 10/30/15 Pneumonia Acute Pneumonia Acute Shortness of breath Acute
[2018-03-03] MEDS ORDERED: IPRATROPIUM/ALBUTEROL 3 ML DEYVIAL IH PRN (18:00)
[2018-03-03] MEDS: ATORVASTATIN CALCIUM 20 MG TAB PO SCH (21:07)
[2018-03-03] MEDS: IPRATROPIUM/ALBUTEROL 3 ML DEYVIAL IH SCH (21:34)
[2018-03-04] MEDS: IPRATROPIUM/ALBUTEROL 3 ML DEYVIAL IH SCH (06:00)
[2018-03-04] MEDS: oxyCODONE IR 5 MG TAB PO PRN (06:14)
[2018-03-04 07:24] VITALS: BP 146/105
[2018-03-04] MEDS: INSULIN NPH HUMAN 100 UNITS/ML SYR SC SCH (07:50)
[2018-03-04] MEDS: ENOXAPARIN 40 MG/0.4 ML SYR SC SCH (07:51)
[2018-03-04] MEDS: PANTOPRAZOLE SODIUM 40 MG TAB PO SCH (07:51)
[2018-03-04] MEDS: LORazepam 1 MG TAB PO PRN (07:51)
[2018-03-04] MEDS: INSULIN LISPRO 100 UNIT/ML SC SCH (07:54)
--- NOTE | 2018-03-04 09:27 | ASMTCMCOM ---
CM Note CM Note Notes: CM spoke to GRISELDA Schmitz regarding d/c POC. PT is recommending home w/ outpatient rehab follow up. No other needs identified at this time. CM available for changes. Plan: Independent Date Signed: 03/04/2018 09:27 AM Electronically Signed By:VENU Daniel
--- NOTE | 2018-03-04 09:39 | PDDCSUM ---
Discharge Summary Discharge Summary: Dates of service 03/02-03/04/18 Consultations: none Procedures performed: none Hospital course by problem: Diabetic ketoacidosis-triggered likely be prednisone use, gap closed, sugars well controlled on current regimen, no longer requiring steroids Hyponatremia-largely related to pseudo hyponatremia as well as some component of hypovolemia, resolved Hyperkalemia-resolved. likely related to volume down Reactive airway disease-his exact underlying pulmonary condition is uncertain. He is having ongoing workup done at [facility]. Improved and will f/u after discharge for ongoing mgmt, no longer in an acute exacerbation Iron deficiency-his iron studies look better they did previously. Colonoscopy has been recommended Diabetes mellitus type 2-uncontrolled with a hemoglobin A1c of 11. Thus far his glucose readings look reasonable with the current NPH and sliding scale insulin. Hyperlipidemia-continue statin therapy. Attention deficit disorder-resumed on clonidine and adderall dc home f/u with PCP, endocrinology and [facility] as previously arranged > 35 min spent in dc more than half in coordination of care
[2018-03-04] MEDS: BUDESONIDE 0.5 MG/2 ML AMPUL.NEB IH SCH (10:04)
== END 2018-03-04 10:45 | disposition home or self-care (01) | DRG 420 ==
LOC: F2N 12:28 → F3E 03-03 10:51
PROVIDERS: ADMIT Internal Medicine; ATTEND Internal Medicine
DX: E11.10 Type 2 diabetes mellitus with ketoacidosis without coma (principal); E87.5 Hyperkalemia; E87.1 Hypo-osmolality and hyponatremia; J45.901 Unspecified asthma with (acute) exacerbation; K21.9 Gastro-esophageal reflux disease without esophagitis; E78.5 Hyperlipidemia, unspecified; F31.9 Bipolar disorder, unspecified; E86.9 Volume depletion, unspecified; E61.1 Iron deficiency; F98.8 Other specified behavioral and emotional disorders with onset usually occurring in childhood and adolescence; Z86.14 Personal history of Methicillin resistant Staphylococcus aureus infection; Z87.891 Personal history of nicotine dependence; Z79.4 Long term (current) use of insulin
CPT/HCPCS: 82947-PO; 83605-PO; 96365; 97161-GP; J1650; J1815; J2405; J3480; J7626

== ENCOUNTER 2018-06-15 21:36 | Inpatient (IN) | payer MEDICAID ==
[2018-06-15] MEDS ORDERED: NS 1,000 ML IV ONE ×2 (21:42→22:42)
[2018-06-15] MEDS ORDERED: IPRATROPIUM/ALBUTEROL 3 ML DEYVIAL IH ONE (21:42)
[2018-06-15] MEDS ORDERED: methylPREDNISolone SOD SUCC 125 MG/2 ML VIAL IVP ONE (21:42)
[2018-06-15] MEDS ORDERED: LORazepam 2 MG/ML INJ IVP ONE ×3 (21:42→22:23)
--- NOTE | 2018-06-15 21:45 | EDPHY ---
H & P Stated Complaint: SOB, cough, hx of reactive airway disease Time Seen by Provider: 06/15/18 21:44 HPI/ROS: HPI CHIEF COMPLAINT: Shortness of breath, cough, room air saturation 82%. HISTORY OF PRESENT ILLNESS: 48-year-old male, history of reactive airway disease versus COPD, history of diabetes with a history of DKA, bipolar disorder , presents emergency room by EMS for shortness of breath, cough, wheezing, and had initial room air saturation by EMS of 82%. The patient has previous multiple hospitalizations for reactive airway disease also at 1 point requiring intubation for acute respiratory failure. Patient arrived to the emergency room stating he feels very anxious, also complains of shortness of breath, wheezing, shortness of breath. No chest pain. Patient states he started coughing and wheezing around 3:00 p.m.. It is now 10: 00 p.m.. He arrives to the emergency room by EMS stable however heart rate noted to be in the 130s, room air saturation 82%. Past Medical History: Bipolar disorder, anxiety disorder, COPD versus reactive airway disease, diabetes, DKA, previous hospitalizations for respiratory failure , previous hospitalizations for reactive airway disease versus COPD. Empyema Past Surgical History: No recent surgical history Social History: Denies tobacco use drug use or alcohol. Lives locally here. Family History: Noncontributory ROS REVIEW OF SYSTEMS: 10 Systems were reviewed and negative with the exception of the elements mentioned in the history of present illness. Exam Constitutional anxious however nontoxic triage nursing summary reviewed, vital signs reviewed, awake/alert. Room air saturation 82%. Heart rate 132. Eyes normal conjunctivae and sclera, EOMI, PERRLA. HENT normal inspection, atraumatic, moist mucus membranes, no epistaxis, neck supple/ no meningismus, no raccoon eyes. Respiratory decreased breath sounds bilaterally. Wheezing throughout lung avila. Tachypnea. Cardiovascular tachycardic, regular rhythm, no murmur, no edema, distal pulses normal. Gastrointestinal soft, non-tender, no rebound, no guarding, normal bowel sounds, no distension, no pulsatile mass. Genitourinary no CVA tenderness. Musculoskeletal no midline vertebral tenderness, full range of motion, no calf swelling, no tenderness of extremities, no meningismus, good pulses, neurovascularly intact. Skin pink, warm, & dry, no rash, skin atraumatic. Neurologic awake, alert and oriented x 3, AAOx3, moves all 4 extremities equally, motor intact, sensory intact, CN II-XII intact, normal cerebellar, normal vision, normal speech. Psychiatric normal mood/affect. Heme/Lymph/Immune no lymphadenopathy. Differential Diagnosis: Includes but is not limited to in a particular order bronchospasm, reactive airway disease, viral syndrome, pneumonia, COPD, anxiety , ACS, pneumothorax Medical Decision Making: Plan for this patient chest x-ray, DuoNeb breathing treatment, IV Solu-Medrol, IV Ativan for anxiety, chest x-ray to rule out pneumothorax, IV fluid bolus, hospital admission for hypoxia Re-evaluation: EKG interpretation by me on record in [employer] system. Impression time of EKG 0, sinus tach rate of 127, T-wave abnormality V4 V5 V6. 2225: Re-examination at this time the patient is resting comfortably feels much better after DuoNeb breathing treatment, IV fluids and IV Ativan. Breathing is much improved. Patient's current vitals blood pressure 142/92, heart rate 121, pulse ox 93% on 3 L nasal cannula. Chest x-ray reviewed shows no infiltrate. Patient improved after DuoNeb breathing treatment, wheezing improved on exam. Patient additionally complains of a right-sided headache. CT scan head without contrast negative for acute bleed. Called to me by Dr. Payan CT head without was obtained due to SE[place]A. Spoke with the hospitalist service Dr. Key. Agrees to admit. Admit for Hypoxia 82%. RA sat, Wheezing, Rad, tachycardia, anxiety. 2311: Patient much improved feeling much better after IV fluids, IV Ativan, DuoNeb breathing treatment, steroids and Levaquin. Good air movement on re- examination. Patient feels much better after IV Ativan. Resting comfortably. I discussed case in detail with Dr. Key agrees to admit. Labs reviewed creatinine 2.2. Source: Patient - Personal History Current Tetanus/Diphtheria Vaccine: Yes Tetanus Vaccine Date: 2013 - Medical/Surgical History Hx Asthma: No Hx Chronic Respiratory Disease: Yes Hx Diabetes: Yes Hx Cardiac Disease: No Hx Renal Disease: No Hx Cirrhosis: No Hx Alcoholism: No Hx HIV/AIDS: No Hx Splenectomy or Spleen Trauma: No Other PMH: PMH: DIABETES,KIDNEY STONES, GERD, PNA WITH MRSA, EMPYEMA, htn, adhd , bipolar depression, spontaneous pnumothorax w/ chest tube placment, the hyponatremia. VATS procedure - Social History Smoking Status: Former smoker Constitutional: Initial Vital Signs Temperature (C) 37.2 C 06/15/18 21:38 Heart Rate 132 H 06/15/18 21:38 Respiratory Rate 24 H 06/15/18 21:38 Blood Pressure 142/92 H 06/15/18 21:38 O2 Sat (%) 88 L 06/15/18 21:38 O2 Delivery Mode Nasal Cannula O2 (L/minute) 2 Allergies/Adverse Reactions: DILIP Inhibitors Allergy (Severe, Verified 04/09/18 20:09) Sulfa (Sulfonamide Antibiotics) [Sulfa(Sulfonamide Antibiotics)] Allergy (Severe , Verified 04/09/18 20:09) Anaphylaxis Home Medications: Medication Instructions Recorded Simvastatin 40 mg PO HS #9 tablet 03/04/18 clonIDINE [Catapres (*)] 0.2 mg PO TID #18 tab 03/04/18 Insulin Regular, Human [HUMULIN R] 1 - 10 unit SC AC #1 vial 03/29/18 Omeprazole 40 mg PO DAILY #30 capsule. 03/29/18 Amphet Asp and D/Amphet [Adderall 20 mg PO BID@08,12 06/15/18 20 mg (*)] Beclomethasone Qvar 80 [Qvar 80 1 inh IH BID 06/15/18 Redihaler (*)] Insulin NPH Human Isophane 50 unit SQ BIDAC 06/15/18 [Humulin N] LORazepam [Ativan 2 mg tab] 2 mg PO Q3D PRN 06/15/18 Mometasone 220Mcg Inhaler [Asmanex 1 puffs IH BID 06/15/18 Inh (*)] Montelukast Sodium [Singulair 10 10 mg PO DAILY@1800 06/15/18 mg (*)] oxyCODONE IR [Oxycodone Ir (*)] 10 - 20 mg PO HS PRN 06/15/18 Medical Decision Making - Diagnostics Imaging Results: Imaging Impressions Chest X-Ray 06/15/18 21:42 Impression: 1. No acute pulmonary disease. 2. Consider chest two views when the patient's medical condition permits. Head CT 06/15/18 22:24 Impression: 1. Slightly limited without evidence of acute hemorrhage, hydrocephalus or mass effect. 2. No sinusitis. Findings and recommendations discussed with Emergency Department physician, Romain Hawley MD at 23:11 hour, 06/15/2018. Final report concurs with initial preliminary interpretation. - Data Points Laboratory Results: Laboratory Results 06/15/18 21:51 06/15/18 21:51 06/15/18 06/15/18 06/15/18 21:54 21:51 21:51 WBC 12.88 10^3/uL H 10^3/uL (3.80-9.50) RBC 4.93 10^6/uL 10^6/uL (4.40-6.38) Hgb 15.4 g/dL g/dL (13.7-17.5) Hct 43.6 % % (40.0-51.0) MCV 88.4 fL fL (81.5-99.8) MCH 31.2 pg pg (27.9-34.1) MCHC 35.3 g/dL g/dL (32.4-36.7) RDW 12.7 % % (11.5-15.2) Plt Count 363 10^3/uL 10^3/uL (150-400) MPV 8.9 fL fL (8.7-11.7) Neut % (Auto) 62.2 % % (39.3-74.2) Lymph % (Auto) 24.2 % % (15.0-45.0) [place] % (Auto) 11.3 % % (4.5-13.0) Eos % (Auto) 1.6 % % (0.6-7.6) Baso % (Auto) 0.5 % % (0.3-1.7) Nucleat RBC Rel Count 0.0 % % (0.0-0.2) Absolute Neuts (auto) 8.00 10^3/uL H 10^3/uL (1.70-6.50) Absolute Lymphs (auto) 3.12 10^3/uL H 10^3/uL (1.00-3.00) Absolute Monos (auto) 1.46 10^3/uL H 10^3/uL (0.30-0.80) Absolute Eos (auto) 0.21 10^3/uL 10^3/uL (0.03-0.40) Absolute Basos (auto) 0.06 10^3/uL 10^3/uL (0.02-0.10) Absolute Nucleated RBC 0.00 10^3/uL 10^3/uL (0-0.01) Immature Gran % 0.2 % % (0.0-1.1) Immature Gran # 0.03 10^3/uL 10^3/uL (0.00-0.10) Sodium 139 mEq/L mEq/L (135-145) Potassium 3.8 mEq/L mEq/L (3.3-5.0) Chloride 94 mEq/L L mEq/L (97-110) Carbon Dioxide 29 mEq/l mEq/l (22-31) Anion Gap 16 mEq/L H mEq/L (6-14) BUN 38 mg/dL H mg/dL (7-23) Creatinine 2.2 mg/dL H mg/dL (0.7-1.3) Estimated GFR 32 Glucose 91 mg/dL mg/dL (70-100) Calcium 9.8 mg/dL mg/dL (8.5-10.4) Magnesium 1.5 mg/dL L mg/dL (1.6-2.3) Total Bilirubin 0.8 mg/dL mg/dL (0.1-1.4) Conjugated Bilirubin 0.4 mg/dL mg/dL (0.0-0.5) Unconjugated Bilirubin 0.4 mg/dL mg/dL (0.0-1.1) AST 40 IU/L IU/L (17-59) ALT 24 IU/L IU/L (21-72) Alkaline Phosphatase 64 IU/L IU/L (38-126) POC Troponin I 0.01 ng/mL ng/mL (0.00-0.08) NT-Pro-B Natriuret Pep 174 pg/mL H pg/mL (0-125) Total Protein 8.4 g/dL H g/dL (6.3-8.2) Albumin 4.7 g/dL g/dL (3.5-5.0) Medications Given: Levofloxacin/Dextrose (Levaquin 750 Mg (Premix)) 150 mls @ 100 mls/hr IV EDNOW ONE PRN Reason: Protocol Stop: 06/15/18 23:27 Last Admin: 06/15/18 22:13 Dose: 150 mls Magnesium Sulfate (Magnesium Sulf 2 Gm (Premix)) 50 mls @ 50 mls/hr IV EDNOW ONE Stop: 06/15/18 23:41 Last Admin: 06/15/18 23:03 Dose: 50 mls Discontinued Medications Albuterol/Ipratropium (Duoneb) 3 ml IH EDNOW ONE Stop: 06/15/18 21:43 Last Admin: 06/15/18 21:47 Dose: 3 ml Sodium Chloride (Ns) 1,000 mls @ 0 mls/hr IV EDNOW ONE; Wide Open PRN Reason: Protocol Stop: 06/15/18 21:43 Last Admin: 06/15/18 21:48 Dose: 1,000 mls Sodium Chloride (Ns) 1,000 mls @ 0 mls/hr IV ONCE ONE PRN Reason: Wide Open Stop: 06/15/18 22:43 Last Admin: 06/15/18 23:02 Dose: 1,000 mls Lorazepam (Ativan Injection) 0.5 mg IVP EDNOW ONE Stop: 06/15/18 21:43 Last Admin: 06/15/18 21:47 Dose: Not Given Lorazepam (Ativan Injection) 1 mg IVP EDNOW ONE Stop: 06/15/18 21:46 Last Admin: 06/15/18 21:48 Dose: 1 mg Lorazepam (Ativan Injection) 1 mg IVP EDNOW ONE Stop: 06/15/18 22:24 Last Admin: 06/15/18 22:24 Dose: 1 mg Methylprednisolone Sodium Succinate (Solu-Medrol) 125 mg IVP EDNOW ONE Stop: 06/15/18 21:43 Last Admin: 06/15/18 21:47 Dose: 125 mg Point of Care Test Results: Chemistry 06/15/18 21:54 POC Troponin I 0.01 ng/mL ng/mL (0.00-0.08) Departure - Departure Disposition: [facility] Acute Clinical Impression: Shortness of breath, Reactive airway disease, Acute kidney injury, Anxiety Condition: Fair Referrals: Patient,NotPresent [Unknown] - As per Instructions
[2018-06-15 22:08] LABS: PLATELET COUNT 363 10^3/uL (150-400)
[2018-06-15] MEDS ORDERED: MAGNESIUM SULF 2 GM/WATER 50 ML IV ONE (22:42)
[2018-06-15] MEDS ORDERED: PROMETHAZINE HCL 25 MG/ML INJ IVP PRN (23:41)
[2018-06-15] MEDS ORDERED: ONDANSETRON DISINTEGRATING 4 MG TAB PO PRN (23:41)
[2018-06-15] MEDS ORDERED: ALBUTEROL 3 ML DEYVIAL IH PRN (23:41)
[2018-06-15] MEDS ORDERED: ONDANSETRON 4 MG/2 ML VIAL IVP PRN (23:41)
[2018-06-15] MEDS ORDERED: ACETAMINOPHEN 325 MG TAB PO PRN (23:41)
[2018-06-15] MEDS ORDERED: NS 1,000 ML IV SCH (23:45)
[2018-06-16] MEDS: BUDESONIDE 0.5 MG/2 ML AMPUL.NEB IH SCH ×3 (03:51→22:55)
[2018-06-16 05:26] LABS: PLATELET COUNT 309 10^3/uL (150-400)
[2018-06-16] MEDS: IPRATROPIUM/ALBUTEROL 3 ML DEYVIAL IH SCH ×4 (05:55→22:56)
[2018-06-16] MEDS ORDERED: D50W 25 GM/50 ML SYR IVP PRN (06:44)
[2018-06-16] MEDS: INSULIN NPH HUMAN 100 UNITS/ML SYR SC SCH ×2 (07:44→18:03)
[2018-06-16] MEDS: BENZONATATE 100 MG CAP PO PRN ×2 (07:59→17:35)
[2018-06-16] MEDS: CETIRIZINE 10 MG TAB PO SCH (07:59)
[2018-06-16] MEDS: INSULIN LISPRO 100 UNIT/ML SC SCH ×3 (07:59→17:56)
[2018-06-16] MEDS: methylPREDNISolone SOD SUCC 125 MG/2 ML VIAL IVP SCH ×2 (08:20→20:50)
[2018-06-16] MEDS: LORazepam 0.5 MG TAB PO PRN ×3 (08:25→20:50)
[2018-06-16] MEDS: HYDROCODONE/APAP 5/325 TAB PO PRN ×3 (08:25→14:44)
[2018-06-16] MEDS ORDERED: HYDROmorphONE/DILAUDID 1 MG/ML INJ IVP PRN (08:41)
[2018-06-16] MEDS ORDERED: DIAZEPAM 5 MG/ML 1 ML SYR IVP ONE ×2 (08:45)
[2018-06-16] MEDS: ENOXAPARIN 40 MG/0.4 ML SYR SC SCH (08:58)
--- NOTE | 2018-06-16 09:09 | HOSPPROG ---
Hospitalist Progress Note Assessment/Plan: #Acute hypoxemic respiratory failure 2/2 RAD - I suspect this is hastened by his anxiety. STAT team this am, 20 minutes at bedside. Pt improved with nebs, IV Valium. STAT CXR this am reviewed: no obvious infiltrate, unchanged from last night. -cont duonebs, budesonide, IV prednisone, add azithro -send resp viral panel -wean O2 as able, just 1 LPM this am #DM with h/o DKA - no DKA here, but bg's elevated -cont NPH plus achs lispro, up-titrate as indicated #Anxiety with suspected bzd dependence - impression this am is he may be in withdrawal -s/p one dose of IV valium -cont ativan #H/O opioid dependence - denies recent opioid use #Full code #DVT PPLX - Lovenox #Dispo - change to inpt for ongoing hypoxemia and RAD flare Subjective: Pt developed respiratory distress this am with diaphoresis and back spasms. He was very anxious and symptoms improved after IV valium. No fevers/ chills. Coughing quite a bit. Objective: Vital Signs Temp Pulse Resp BP Pulse Ox 36.9 C 117 H 12 128/84 H 90 L 06/16/18 07:37 06/16/18 07:37 06/16/18 07:37 06/16/18 07:37 06/16/18 07:37 Laboratory Results 06/16/18 04:40 06/16/18 04:40 06/15/18 06/16/18 06/17/18 05:59 05:59 05:59 Intake Total 2150 Output Total 600 Balance 1550 - Physical Exam Constitutional: no apparent distress Eyes: PERRL Ears, Nose, Mouth, Throat: moist mucous membranes Cardiovascular: regular rate and rhythym Respiratory: clear to auscultation, reduced air movement, respiratory distress Gastrointestinal: normoactive bowel sounds, soft, non-tender abdomen Skin: warm Musculoskeletal: full muscle strength Neurologic: AAOx3 Psychiatric: anxious ICD10 Worksheet Patient Problems: Problems Problem Status Onset Acute kidney injury Acute Anxiety Acute Reactive airway disease Acute Shortness of breath Acute Bipolar affective disorder, current episode depression Active Diabetes mellitus type 2 Active Acute bronchitis Acute Bronchospasm Acute DKA (diabetic ketoacidoses) Acute Empyema of left pleural space Acute Exacerbation of asthma Acute Exacerbation of asthma Acute Hyperglycemia Acute Hypoxemia Acute Left lower lobe pneumonia Acute MRSA (methicillin resistant Staphylococcus aureus) Acute 10/30/15 Pneumonia Acute Pneumonia Acute
--- NOTE | 2018-06-16 09:50 | ASMTCMCOM ---
CM Note CM Note Notes: Pt is a 48 y/o man admitted for shortness of breath, a cough and requiring o2. Pt with a hx of COPD, diabetes, DKA and bipolar. Pt was admitted in March twice for COPD exacerbation and DKA. CM reviewed pts med list. Pt does not appear to be taking any psych meds other than ativan for his bipolar. Referral made to [facility]. Pt will most likely d/c independent when medically stable. No therapies ordered at this time. CM to follow. Plan: TBD Date Signed: 06/16/2018 09:49 AM Electronically Signed By:VENU Daniel
[2018-06-16] MEDS: AZITHROMYCIN 250 MG TAB PO SCH (09:56)
--- NOTE | 2018-06-16 10:24 | GHP ---
DATE OF ADMISSION: 06/15/2018 SOURCE OF INFORMATION: The patient provides history, appears reliable. EMR was reviewed, and case d iscussed with ED provider. CHIEF COMPLAINT: Shortness of breath and cough. HISTORY OF PRESENT ILLNESS: This is a 48-year-old gentleman known to our service with a past medical history significant for COPD versus reactive airway disease, history of poorly controlled diabetes t ype 1 with a history of admissions for DKA, gastroparesis, GERD, Smith's esophagus, anxiety, attent ion deficit hyperactivity disorder, bipolar disorder, hyponatremia secondary to SIADH, history of rhe umatoid arthritis, osteoarthritis, chronic back pain, history of pneumonia with empyema due to MRSA r equiring VATS and chest tubes. The patient also with history of kidney stone. Patient presents to [facility] emergency department today with complaints of 1-day history of increasing shortness of breath and cough. The patient reports that he had a significant coughing fit earlier in the day. His symptoms, overall, started approximately 3 pm. He arrives to the Emergency Department after 10 p.m. with comp laints of feeling like he is choking, and his throat is closing, and he is unable to catch any air. The patient reports that he has been experiencing hot flashes and sweats, but denies any chills or ri gors. He reports that he feels like the congestion starts in his throat and extends up into his neck and his face. He is currently complaining of some numbness and tingling on the right side of his fa ce. He states that he had a significant coughing fit that he felt popping occurring in his right lat eral abdomen, as well as in the right side of his face. Patient called 911 for EMS when he felt like he was unable to catch any air. On arrival, EMS found Kvng to be saturating at 82% on room air. Despite dosing of a nebulizer treatment, he continued to have hypoxia and presented to the emergency department for further treatment. He did receive steroids IV, DuoNeb, magnesium sulfate, 2 L of IV fluid, Ativan, a total 2 mg, Levaquin 750 with some improvement in his symptoms. However, patient co ntinues to feel like he has significant trouble breathing and continues to have wheezing, and the onl y thing that had been helping him was the IV steroids. The patient reports that he had a similar epi sode a few months ago when he was in the [place] area visiting his family. He also, at that time , took a cough medicine and developed sudden increase in shortness of breath and the sensation that h is throat was congested, and he could get any air. Several months back, he did require intubation fo r acute respiratory failure. REVIEW OF SYSTEMS: Ten systems reviewed, negative except as noted above. ALLERGIES: To DILIP inhibitors, sulfa, sulfites. PAST MEDICAL HISTORY: 1. Significant for MRSA, pneumonia, empyema in 2013, status post multiple VATS and chest tubes. 2. The patient with history of respiratory condition, COPD versus RAD, which he reports he is still being followed at [facility] for a final diagnosis of COPD versus reactive airway versus autoimm une. 3. He does have a history of poorly controlled diabetes type 1 with multiple hospitalizations for DK A. He reports he takes 50 units of NPH twice daily and a sliding scale insulin short-acting 2-8 unit s t.i.d. with meals. 4. Kidney stone. 5. Gastroesophageal reflux disease. 6. History of Smith's esophagus. 7. HTN. 8. Attention deficit hyperactivity disorder. 9. Bipolar disorder. 10. Spontaneous pneumothorax. 11. Hyponatremia due to SIADH. 12. Rheumatoid arthritis. 13. Osteoarthritis. 14. Chronic back pain. 15. History of narcotic abuse and dependence. PAST SURGICAL HISTORY: Patient reports VATS x2, appendectomy, chest tube placement. FAMILY HISTORY: Asthma. SOCIAL HISTORY: Patient lives alone. He smokes occasional tobacco. He denies any illicit drugs. Tracy del valle does use benzodiazepine for home medication for attention deficit hyperactivity disorder. CODE STATUS: Full. PHYSICAL EXAMINATION: VITAL SIGNS: Upon arrival to the emergency department, blood pressure 142/92, heart rate is 132, respiratory rate 24, O2 sat 88% on room air with a temperature 37.2. Vitals curr ently, blood pressure 128/84, heart rate 117, respiratory rate 90, temperature 36.9 on 1 L by nasal c annula. GENERAL: No acute distress, pleasant adult, obese gentleman lying quietly in bed. He is aw meenakshi, alert, and interactive. He is in fairly good spirits. HEAD: Normocephalic, atraumatic. EYES: Extraocular muscles grossly intact. Pupils equal, round with decreased reactivity to light bilater ally, but symmetric. No scleral icterus or conjunctival injection. ENT: Mucous membranes appear sl ightly dry. No oropharyngeal erythema or exudates. No nasal discharge. The patient with missing de ntition. NECK: Supple. Trachea midline. CV: Tachycardic, slightly distant heart sounds with regu lar rhythm. No murmurs, rubs, or gallops, slightly limited secondary to tachycardia. RESPIRATORY: Lungs are clear to auscultation bilaterally. No wheezes, rales, or rhonchi appreciated. Patient wit h expiratory wheezes diffusely. He has diminished breath sounds bibasilarly in the posterior lung fi elds. ABDOMEN: Obese, soft, nontender to palpation. No rebound, guarding, or masses appreciated. : No suprapubic tenderness to palpation. No Benedict catheter in place. MUSCULOSKELETAL: Patient a ble to sit up independently. He moves all extremities. Strength grossly normal. NEURO: Grossly no nfocal. No facial drooping. Moves all extremities. LABORATORY STUDIES: Upon arrival to the emergency department, WBC 12.8, H and H 15.4 and 43.6, MCV o f 88.4, platelet count is 336. No bands. Sodium is 139, potassium 3.8, chloride 94, CO2 is 29, anion gap 16, BUN 38, creatinine 2.2, GFR of gr eater than 30, glucose 91, calcium 9.8, magnesium 1.5, total bilirubin 0.8, ALT is 24, AST is 40, alk iliana phosphatase 64. Troponin is negative. BNP is 174. Total protein 8.4, albumin 4.7. Repeated BMP this morning, sodium 137, potassium 4.2, chloride 98, CO2 is 26, anion gap is 13, creatinine is 1 .2 with a BUN of 31, glucose 360, calcium 8.8. UA, specific gravity of 1.021 with a pH of 5.0, 1+ pr otein, trace ketones, hyaline casts 25-50, WBC is 1 to 3 only. U-tox is positive for amphetamines and benzos. EKG was reviewed by myself showing sinus tachycardia in the 120s. Nonspecific T-wave changes in diff use leads. No acute ST changes. QTc is prolonged at 556. Chest x-ray: Image was reviewed by myself, as well as radiology report negative for any acute findin gs. CT head negative for any evidence of acute findings. Slightly limited due to patient motion artifact . ASSESSMENT AND PLAN: A 48-year-old gentleman with a significant respiratory history for chronic obst ructive pulmonary disease versus reactive airway disease who presents to the emergency department wit h complaints of increasing dyspnea, shortness of breath, trouble catching air, is found to be hypoxic and brought to the emergency department for further evaluation. 1. Chronic obstructive pulmonary disease versus reactive airway disease, acute exacerbation. No felix dence of pneumonia on imaging. The patient was prophylactically started on Levaquin for empiric cove rage with known respiratory issues. Will plan to continue this at respiratory dosing 750, but need t o monitor the patient in this QTc. This was likely rate-related, and his rate has come down some. T he patient states that he would be amenable to visitation with pulmonology service who saw the patien t the last time he was here for respiratory status. The patient received Solu-Medrol, multiple nebul izers, magnesium, and his respiratory status appears to be improving. He does continue to have wheez ing, and so we will continue with IV Solu-Medrol twice daily, as well as his nebulizers scheduled and p.r.n., and the addition of Pulmicort nebulizer which patient reports has helped significantly in th e past. However, it is much to expensive to continue, and requires prior authorization which he repo rts has been difficult to obtain. 2. Diabetes type 1, uncontrolled. Resume patient's home dosing of insulin with sliding scale at a.c . and HS. 3. Hypoxia related to acute respiratory status. Continue with steroids, nebulizers. 4. Anxiety, p.r.n. Ativan. 5. Gastroesophageal reflux disease. Resume antacid p.r.n. 6. History tobacco dependence. Nicoderm patch p.r.n. 7. Chronic back pain. 8. The patient with a previous history of narcotic abuse and dependence. We will need to monitor cl osely and avoid any escalation. 9. Left flank pain. We will obtain a UA to ensure that the patient does not have any evidence of ac [place] urinary tract infection, but likely he has a musculoskeletal strain related to his coughing fits. Consider Lidoderm patch and/or heating pad if no improvement with oral agents. 10. Mental health disorders including attention deficit hyperactivity disorder, bipolar disorder. R esume home medications once med list is available for reconciliation. 11. Fluid, electrolyte, nutrition: IV fluids overnight for supplementation. Encourage oral intake as tolerated. The patient does still look a little dry. Electrolyte monitoring and replacement if n eeded. Diet as tolerated. 12. Prophylaxis. Sequential compression devices. Anticoagulation with Lovenox in the morning as pa tient with decreased mobility. 13. Core status is full. DISPOSITION: Patient admitted to observation status on the medical floor pending reassessment with yesenia leivaing the steroids and breathing treatments for his respiratory status. /[id number]/MODL
[2018-06-16] MEDS ORDERED: INSULIN LISPRO 100 UNIT/ML SC SCH (21:00)
[2018-06-16] MEDS ORDERED: hydrOXYzine HCL 25 MG TAB PO PRN (22:19)
[2018-06-17] MEDS: BENZONATATE 100 MG CAP PO PRN (04:07)
[2018-06-17] MEDS: IPRATROPIUM/ALBUTEROL 3 ML DEYVIAL IH SCH (04:07)
[2018-06-17] MEDS ORDERED: DIAZEPAM 5 MG/ML 1 ML SYR IVP PRN (04:16)
[2018-06-17 07:27] VITALS: BP 130/99
[2018-06-17] MEDS: LORazepam 0.5 MG TAB PO PRN (07:35)
[2018-06-17] MEDS: CETIRIZINE 10 MG TAB PO SCH (07:35)
[2018-06-17] MEDS: ENOXAPARIN 40 MG/0.4 ML SYR SC SCH (07:35)
[2018-06-17] MEDS: INSULIN LISPRO 100 UNIT/ML SC SCH (07:43)
[2018-06-17] MEDS: AZITHROMYCIN 250 MG TAB PO SCH (08:54)
[2018-06-17] MEDS: INSULIN NPH HUMAN 100 UNITS/ML SYR SC SCH (08:54)
[2018-06-17] MEDS: methylPREDNISolone SOD SUCC 125 MG/2 ML VIAL IVP SCH (08:56)
--- NOTE | 2018-06-17 09:45 | PDMN ---
Medical Necessity Medical necessity: Change to IP, as of 06/16/18, per MD & MCG MG-PUL (Pulmonary Disease); los >2 mn for ongoing management RAD flare w/hypoxemia (O2 88% on 1 lpm), tachycardia & anxiety; pt developed respiratory distress-STAT team called ; requiring further monitoring, respiratory supportive care, IVFs & IV steroids ; hx of COPD vs RAD, pneumonia, empyema s/p multi VATS & chest tube
--- NOTE | 2018-06-17 10:40 | ASMTLACE ---
LACE Length of stay for Answers: 2 days current admission Acuity / Level of Answers: Yes Care: Did the patient have an inpatient admission? Comorbidities - select Answers: Diabetes (uncontrolled or all that apply controlled) Opioid dependence / Chronic pain Other Notes: Reactive airway disease; HTN # of Emergency department Answers: 3-4 visits in the last 6 months Social determinants Answers: Mental health diagnosis (anxiety, depression, pers onality disorders, etc.) Score: 17 Date Signed: 06/17/2018 10:40 AM Electronically Signed By:VENU Daniel
--- NOTE | 2018-06-17 10:41 | ASMTCMCOM ---
CM Note CM Note Notes: Pt is being discharged today. Pt does not have any d/c needs at this time. CM available for changes. Plan: Independent Date Signed: 06/17/2018 10:41 AM Electronically Signed By:VENU Daniel
--- NOTE | 2018-06-18 08:45 | GDS ---
DISCHARGE DIAGNOSES: 1. Acute hypoxemic respiratory failure secondary to chronic obstructive pulmonary disease exacerbati on. 2. Type 1 diabetes. 3. Anxiety. 4. Polysubstance abuse. 5. Drug-seeking behavior. CONSULTANTS: None. HISTORY OF DETAILS: For details, please see the history and physical dated June 16, 2018. In [facility], Mr. Richard is a 48-year-old male with a history of COPD versus reactive airway disease, poorly con trolled type 1 diabetes with prior admissions for DKA as well as severe anxiety and bipolar disorder who presented to the emergency department with cough and shortness of breath. On arrival, his sats w ere 82% on room air. He was admitted to the hospital for further management. HOSPITAL COURSE: The patient was admitted to the med/surg unit. He received scheduled DuoNebs with p.r.n. albuterol nebs in addition to steroids and antibiotics. His blood sugars were stable and ther e was no evidence of DKA. The morning after admission, the patient had a dramatic presentation with respiratory distress which I witnessed. It is unclear if this may have been provoked by an anxiety e pisode. I also considered vocal cord spasm. He did actually respond quite well to 5 mg of IV Valium . His drug tox on arrival was positive for benzodiazepines and amphetamines. Consideration was give n to a withdrawal syndrome. His symptoms significantly improved the following day and he was adamant about discharging home. However, he also strongly pressured me for a prescription for Hycotuss coug h syrup as well as benzodiazepines. He reports intermittent episodes of difficulty breathing for whi ch he needs to take both Hycotuss and benzodiazepine to treat. We discussed he should have close out patient followup with Pulmonology to consider if he may have a vocal cord dysfunction or vocal cord s pasm contributing to his symptoms. As I have in the past I declined to prescribe opiates for Mr. Liu harding. I did agree to a small supply of Ativan as it seems when his anxiety is exacerbated he tends to have worsening bronchospasm. He will also be discharged on prednisone and we also discussed that he will continue his inhaled corticosteroid, albuterol and Singulair. DISPOSITION: Patient is discharged to home in stable condition. Although I recommended another day in the hospital he is adamant about leaving and I did not force him to sign out AMA. FOLLOWUP: He has a followup appointment with Dr. Love, his director new product tomorrow. I also encourag ed him to reconnect with his primary care physician, Dr. Saldivar. DISCHARGE MEDICATIONS: Please see [facility] completed outpatient medication list. New medications on discharge include prednisone 40 mg p.o. daily #8 no refills, albuterol inhaler 2 puffs inhaled q.4 h ours #1 no refills, Ativan 0.5-1 mg p.o. q.8 hours p.r.n. #10 no refills. He will continue his outpa tient medications as previously prescribed including QVAR, Singulair, insulin NPH with regular insuli n, simvastatin, clonidine, lorazepam p.r.n. and Adderall. He reportedly takes oxycodone 10-20 mg at bedtime as needed though it is unclear who is prescribing this for him. /[id number]/MODL
--- NOTE | 2018-06-19 07:10 | CPEKG ---
Test Reason : OPEN Blood Pressure : / mmHG Vent. Rate : 127 BPM Atrial Rate : 127 BPM P-R Int : 144 ms QRS Dur : 101 ms QT Int : 382 ms P-R-T Axes : 046 027 214 degrees QTc Int : 556 ms Sinus tachycardia Abnormal R-wave progression, early transition Abnormal T, consider ischemia, diffuse leads Prolonged QT interval Confirmed by Romain Hawley ([id number]) on 06/19/2018 7:09:25 AM Referred By: Confirmed By:Romain Hawley
== END 2018-06-17 10:19 | disposition home or self-care (01) | DRG 140 ==
LOC: EDUNIT# → F3E 23:53 → OBSVTOIN 06-16 17:30
PROVIDERS: ADMIT Family Medicine; ATTEND Family Medicine
DX: J44.1 Chronic obstructive pulmonary disease with (acute) exacerbation (principal); J96.01 Acute respiratory failure with hypoxia; E86.9 Volume depletion, unspecified; E10.9 Type 1 diabetes mellitus without complications; F41.9 Anxiety disorder, unspecified; K21.9 Gastro-esophageal reflux disease without esophagitis; I10 Essential (primary) hypertension; F90.9 Attention-deficit hyperactivity disorder, unspecified type; F31.9 Bipolar disorder, unspecified; Z76.5 Malingerer [conscious simulation]; Z87.891 Personal history of nicotine dependence; Z79.4 Long term (current) use of insulin
CPT/HCPCS: 80305; 84484-PO; 96365; J1170; J1650; J1815; J1956; J2060; J2930; J3360; J3475; J7626

== ENCOUNTER 2018-11-19 18:29 | Inpatient (IN) | payer MEDICAID ==
--- NOTE | 2018-11-19 18:38 | EDPHY ---
H & P Time Seen by Provider: 11/19/18 18:38 HPI/ROS: Chief complaint. Shortness of breath HPI. Patient 48-year-old male here by EMS with shortness of breath. Patient has a history of COPD. He felt that he was starting to have trouble breathing and coughing. He has used his inhalers multiple times. He took 60 of prednisone prior to arrival. He continues to have symptoms. Apparently the patient has had problems with laryngospasm previously and notes that he had been previously intubated. He has some crampy abdominal pain. The no fever. However increased shortness of breath with cough. Recent return to [place] 4 days ago and had some feet swelling that have improved since he has been home. No vomiting or diarrhea. Patient has discomfort in the left anterior chest wall that he describes as tightness or pressure. No radiation. Not worse with breathing or exertion ROS 10 systems were reviewed and negative with the exception of the elements mentioned in the history of present illness Past Medical/Surgical History: Past medical history seen for diabetes, kidney stones, GERD, pneumonia, empyema , hypertension, attention deficit hyperactivity disorder, bipolar disorder, pneumothorax with chest tube, VATS procedure, chronic pain Social History: Single, nonsmoker, no alcohol Smoking Status: Former smoker Physical Exam: General Appearance: Alert well-developed male anxious vital signs show heart rate 135, O2 saturation 93-95% on room air Eyes: Pupils equal and round no pallor or injection. ENT, Mouth: Mucous membranes are moist. Respiratory: Tachypnea. No retractions. Clear to auscultation Cardiovascular: Regular rate and rhythm with tachycardia Gastrointestinal: Abdomen is soft and nontender, no masses, bowel sounds normal. Neurological: Awake and alert, sensory and motor exams grossly normal. Skin: Warm and dry, no rashes. Musculoskeletal: Neck is supple nontender. Extremities symmetrical, full range of motion. Mild swelling to legs Psychiatric: Patient is oriented X 3, there is no agitation. Constitutional: Initial Vital Signs Temperature (C) 37.4 C 11/19/18 18:35 Heart Rate 135 H 11/19/18 18:35 Respiratory Rate 24 H 11/19/18 18:35 Blood Pressure 98/70 L 11/19/18 18:35 O2 Sat (%) 95 11/19/18 18:35 O2 Delivery Mode Room Air O2 (L/minute) 2 Allergies/Adverse Reactions: DILIP Inhibitors Allergy (Severe, Verified 11/19/18 18:34) azithromycin Allergy (Severe, Verified 11/19/18 20:04) Anaphylaxis Sulfa (Sulfonamide Antibiotics) [Sulfa(Sulfonamide Antibiotics)] Allergy (Severe , Verified 11/19/18 18:34) Anaphylaxis Home Medications: Medication Instructions Recorded Omeprazole 40 mg PO DAILY #30 capsule. 03/29/18 Insulin NPH Human Isophane 50 unit SQ BIDAC 06/15/18 [Humulin N] LORazepam [Ativan 2 mg tab] 2 mg PO BID PRN 06/15/18 Montelukast Sodium [Singulair 10 10 mg PO DAILY 06/15/18 mg (*)] Albuterol [Proventil Inhaler HFA 2 puffs IH Q4 PRN 11/19/18 (*)] Atorvastatin Calcium [Lipitor 40 40 mg PO DAILY 11/19/18 mg (*)] Budesonide 180 Mcg INH [Pulmicort 1 puffs IH BID 11/19/18 180Mcg Flexhaler (*)] Insulin Regular, Human [HUMULIN R] 5 - 7 unit SC AC 11/19/18 Levalbuterol 0.63 mg [Xopenex 0.63 mg IH DAILY PRN 11/19/18 0.63MG Neb (*)] Losartan Potassium [Cozaar 50 mg 50 mg PO DAILY 11/19/18 (*)] amLODIPine BESYLATE [Amlodipine 5 mg PO DAILY 11/19/18 Besylate] clonIDINE [Catapres (*)] 0.4 mg PO TID 11/19/18 oxyCODONE HCL/ACETAMINOPHEN 1 each PO BID PRN 11/19/18 [Percocet 10-325 mg Tablet] Medical Decision Making - Diagnostics EKG Interpretation: EKG interpreted by me shows sinus tachycardia normal interval. Left axis deviation. QRS is normal there is no significant ST elevation or depression. No arrhythmia. The rate is 123 Imaging Results: Imaging Impressions Chest X-Ray 11/19/18 18:35 Impression: Nothing acute identified. Chest x-ray interpreted by me shows no pneumonia Procedures: IV normal saline ED Course/Re-evaluation: Serial evaluations patient is speaking in full sentences. Complaining of pain wanting pain medication. Patient and I discussed imaging lab EKG findings. We discussed treatment plan including recommendation for admission. He expresses understanding and agreement I consulted discussed case with Dr. Cook, hospitalist, who agrees to the admission Differential Diagnosis: COPD exacerbation, pneumonia, acute coronary syndrome, pulmonary embolus - Data Points Laboratory Results: Laboratory Results 11/19/18 18:53 11/19/18 18:53 11/19/18 11/19/18 11/19/18 18:57 18:53 18:53 WBC RBC Hgb Hct MCV MCH MCHC RDW Plt Count MPV Neut % (Auto) Lymph % (Auto) [place] % (Auto) Eos % (Auto) Baso % (Auto) Nucleat RBC Rel Count Absolute Neuts (auto) Absolute Lymphs (auto) Absolute Monos (auto) Absolute Eos (auto) Absolute Basos (auto) Absolute Nucleated RBC Immature Gran % Immature Gran # D-Dimer 0.37 ug/mLFEU ug/mLFEU (0.00-0.50) Sodium 135 mEq/L mEq/L (135-145) Potassium 3.6 mEq/L mEq/L (3.5-5.2) Chloride 91 mEq/L L mEq/L (97-110) Carbon Dioxide 28 mEq/l mEq/l (22-31) Anion Gap 16 mEq/L H mEq/L (6-14) BUN 32 mg/dL H mg/dL (7-23) Creatinine 1.9 mg/dL H mg/dL (0.7-1.3) Estimated GFR 38 Glucose 182 mg/dL H mg/dL (70-100) Calcium 9.4 mg/dL mg/dL (8.5-10.4) POC Troponin I 0.02 ng/mL ng/mL (0.00-0.08) NT-Pro-B Natriuret Pep 210 pg/mL H pg/mL (0-125) 11/19/18 18:53 WBC 14.99 10^3/uL H 10^3/uL (3.80-9.50) RBC 4.67 10^6/uL 10^6/uL (4.40-6.38) Hgb 14.4 g/dL g/dL (13.7-17.5) Hct 41.6 % % (40.0-51.0) MCV 89.1 fL fL (81.5-99.8) MCH 30.8 pg pg (27.9-34.1) MCHC 34.6 g/dL g/dL (32.4-36.7) RDW 12.7 % % (11.5-15.2) Plt Count 336 10^3/uL 10^3/uL (150-400) MPV 9.1 fL fL (8.7-11.7) Neut % (Auto) 68.2 % % (39.3-74.2) Lymph % (Auto) 21.9 % % (15.0-45.0) [place] % (Auto) 9.0 % % (4.5-13.0) Eos % (Auto) 0.3 % L % (0.6-7.6) Baso % (Auto) 0.3 % % (0.3-1.7) Nucleat RBC Rel Count 0.0 % % (0.0-0.2) Absolute Neuts (auto) 10.22 10^3/uL H 10^3/uL (1.70-6.50) Absolute Lymphs (auto) 3.28 10^3/uL H 10^3/uL (1.00-3.00) Absolute Monos (auto) 1.35 10^3/uL H 10^3/uL (0.30-0.80) Absolute Eos (auto) 0.05 10^3/uL 10^3/uL (0.03-0.40) Absolute Basos (auto) 0.04 10^3/uL 10^3/uL (0.02-0.10) Absolute Nucleated RBC 0.00 10^3/uL 10^3/uL (0-0.01) Immature Gran % 0.3 % % (0.0-1.1) Immature Gran # 0.05 10^3/uL 10^3/uL (0.00-0.10) D-Dimer Sodium Potassium Chloride Carbon Dioxide Anion Gap BUN Creatinine Estimated GFR Glucose Calcium POC Troponin I NT-Pro-B Natriuret Pep Medications Given: Discontinued Medications Sodium Chloride (Ns) 1,000 mls @ 0 mls/hr IV EDNOW ONE; Wide Open PRN Reason: Protocol Stop: 11/19/18 19:15 Last Admin: 11/19/18 19:25 Dose: 1,000 mls Lorazepam (Ativan Injection) 1 mg IVP EDNOW ONE Stop: 11/19/18 19:42 Last Admin: 11/19/18 19:41 Dose: 1 mg Point of Care Test Results: Chemistry 11/19/18 18:57 POC Troponin I 0.02 ng/mL ng/mL (0.00-0.08) Departure - Departure Disposition: [facility] Inpatient Acute Clinical Impression: Chronic obstructive pulmonary disease with acute exacerbation Condition: Fair
[2018-11-19 19:05] LABS: PLATELET COUNT 336 10^3/uL (150-400)
[2018-11-19] MEDS ORDERED: NS 1,000 ML IV ONE (19:14)
[2018-11-19] MEDS ORDERED: LORazepam 2 MG/ML INJ ONE (19:39)
[2018-11-19] MEDS ORDERED: LORazepam 2 MG/ML INJ IVP ONE (19:41)
[2018-11-19] MEDS ORDERED: ONDANSETRON DISINTEGRATING 4 MG TAB PO PRN (20:12)
[2018-11-19] MEDS ORDERED: ALBUTEROL 3 ML DEYVIAL IH PRN (20:12)
[2018-11-19] MEDS ORDERED: ACETAMINOPHEN 325 MG TAB PO PRN (20:12)
[2018-11-19] MEDS ORDERED: ONDANSETRON 4 MG/2 ML VIAL IVP PRN (20:12)
[2018-11-19] MEDS ORDERED: NON-FORMULARY NEW DRUG (Oxycodone Hcl/Acetaminophen [Percocet 10-325 Mg Tablet] 1 EACH) PO PRN (20:50)
[2018-11-19] MEDS ORDERED: LEVALBUTEROL 0.63 MG/3 ML DEYVIAL IH PRN (20:50)
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
[2018-11-19] MEDS ORDERED: HYDROmorphONE/DILAUDID 1 MG/ML INJ IVP PRN (20:51)
[2018-11-19] MEDS ORDERED: D50W 25 GM/50 ML SYR IVP PRN (20:52)
[2018-11-19] MEDS ORDERED: oxyCODONE IR 5 MG TAB PO PRN (21:00)
--- NOTE | 2018-11-19 21:23 | CPEKG ---
Test Reason : OPEN Blood Pressure : / mmHG Vent. Rate : 123 BPM Atrial Rate : 123 BPM P-R Int : 148 ms QRS Dur : 094 ms QT Int : 339 ms P-R-T Axes : 036 013 155 degrees QTc Int : 485 ms Sinus tachycardia Probable left atrial enlargement Abnormal R-wave progression, early transition Borderline prolonged QT interval Confirmed by Martinez Lima ([id number]) on 11/19/2018 9:23:08 PM Referred By: Martinez Lima Confirmed By:Martinez Lima
[2018-11-19] MEDS: BUDESONIDE 180 MCG MDI IH SCH ×2 (21:39→23:46)
[2018-11-19] MEDS: IPRATROPIUM/ALBUTEROL 3 ML DEYVIAL IH SCH ×2 (21:39→23:01)
[2018-11-19] MEDS: guaiFENesin/CODEINE PHOS 10 ML UDCUP PO PRN (22:35)
[2018-11-19] MEDS: HYDROmorphONE/DILAUDID 1 MG/ML INJ IVP PRN (22:55)
[2018-11-19] MEDS: LORazepam 1 MG TAB PO PRN (23:47)
[2018-11-19] MEDS: HEPARIN 5,000 UNIT/0.5 ML INJ SC SCH (23:48)
[2018-11-19] MEDS: INSULIN REGULAR HUMAN 100 UNIT/ML UNIT SC SCH (23:51)
[2018-11-20] MEDS: NS 1,000 ML IV SCH ×3 (01:48→19:33)
[2018-11-20] MEDS: guaiFENesin/CODEINE PHOS 10 ML UDCUP PO PRN ×2 (04:37→19:29)
[2018-11-20] MEDS: HYDROmorphONE/DILAUDID 1 MG/ML INJ IVP PRN ×3 (04:37→20:37)
[2018-11-20] MEDS: IPRATROPIUM/ALBUTEROL 3 ML DEYVIAL IH SCH ×4 (05:40→21:18)
[2018-11-20 05:53] LABS: PLATELET COUNT 283 10^3/uL (150-400)
[2018-11-20] MEDS: HEPARIN 5,000 UNIT/0.5 ML INJ SC SCH ×3 (05:53→21:08)
[2018-11-20] MEDS: PANTOPRAZOLE SODIUM 40 MG TAB PO SCH (08:26)
[2018-11-20] MEDS: ATORVASTATIN CALCIUM 40 MG TAB PO SCH (08:26)
[2018-11-20] MEDS: MONTELUKAST SODIUM 10 MG TAB PO SCH (08:26)
[2018-11-20] MEDS: INSULIN REGULAR HUMAN 100 UNIT/ML UNIT SC SCH ×4 (08:27→20:28)
[2018-11-20] MEDS: LORazepam 1 MG TAB PO PRN ×2 (08:27→19:29)
[2018-11-20] MEDS: INSULIN NPH HUMAN 100 UNITS/ML SYR SC SCH ×2 (08:28→18:04)
--- NOTE | 2018-11-20 08:44 | ASMTLACE ---
UZMA Comorbidities - select Answers: Chronic pulmonary disease all that apply Diabetes (uncontrolled or controlled) Opioid dependence / Chronic pain Other Notes: HTN # of Emergency department Answers: 3-4 visits in the last 6 months Social determinants Answers: Homelessness (street, jail) Mental health diagnosis (anxiety, depression, pers onality disorders, etc.) Score: 17 Date Signed: 11/20/2018 08:43 AM Electronically Signed By:Blanche Lowry
[2018-11-20] MEDS ORDERED: predniSONE 20 MG TAB PO SCH (09:00)
[2018-11-20] MEDS: BUDESONIDE 180 MCG MDI IH SCH ×2 (09:15→20:38)
--- NOTE | 2018-11-20 10:19 | HOSPPROG ---
Hospitalist Progress Note Assessment/Plan: 48 year old male with pmh of COPD, empyema with VATS hx, here with COPD exacerbation COPD exacerbation- CXR reviewed by myself and is reassuring. Exam with dimished breath sounds but minimal wheezing. Still requiring 6 liters to maintain sats. patient has an odd affect. -change to solumedrol 125 Q12 -nebs -home inhalers restarted -oxygen prn -PRN antitussives -check respiratory pCR HELIO- creatinine bumped again overnight, patient says he has not been drinking. suspect it is prerenal azotemia from hypotension and dehydration. Will hydrate with IVNS and recheck in am. Hypotension- responded to fluids. Holding home medications including clonidine, losartan, norvasc. Will cont fluids and add back medications PRN. Bipolar D/o - he denies a history of this. no ton anything. T1DM - takes high dose of NPH which has been ordered -cont SSI FEN: IVF, Carb Consistent DVT PPx: SubQ Heparin Code: FULL Subjective: anxious from nebs. still more short of breath than baseline. no cough. Objective: Vital Signs Temp Pulse Resp BP Pulse Ox 36.9 C 105 H 22 H 101/54 L 94 11/20/18 07:28 11/20/18 09:16 11/20/18 09:16 11/20/18 07:28 11/20/18 09:16 Laboratory Results 11/20/18 05:17 11/20/18 05:17 11/19/18 11/20/18 11/21/18 05:59 05:59 05:59 Intake Total 1000 Balance 1000 - Physical Exam Constitutional: no apparent distress, appears nourished, not in pain Eyes: PERRL, anicteric sclera, EOMI Ears, Nose, Mouth, Throat: moist mucous membranes Cardiovascular: regular rate and rhythym, no murmur, rub, or gallop Respiratory: reduced air movement Gastrointestinal: normoactive bowel sounds Genitourinary: no bladder fullness Skin: warm, normal color Musculoskeletal: full muscle strength, no muscle tenderness, normal joint ROM Neurologic: AAOx3, sensation intact bilaterally Psychiatric: interacting appropriately, not anxious, not encephalopathic, thought process linear Lymph, Heme, Immunologic: no cervical LAD, no supraclavicular LAD ICD10 Worksheet Patient Problems: Problems Problem Status Onset Chronic obstructive pulmonary disease with acute exacerbation Acute Bipolar affective disorder, current episode depression Active Diabetes mellitus type 2 Active Acute bronchitis Acute Acute kidney injury Acute Anxiety Acute Bronchospasm Acute DKA (diabetic ketoacidoses) Acute Empyema of left pleural space Acute Exacerbation of asthma Acute Exacerbation of asthma Acute Hyperglycemia Acute Hypoxemia Acute Left lower lobe pneumonia Acute MRSA (methicillin resistant Staphylococcus aureus) Acute 10/30/15 Pneumonia Acute Pneumonia Acute Reactive airway disease Acute Shortness of breath Acute
[2018-11-20] MEDS ORDERED: methylPREDNISolone SOD SUCC 125 MG/2 ML VIAL IVP SCH ×2 (12:00→23:00)
--- NOTE | 2018-11-20 17:34 | ASMTCMCOM ---
CM Note CM Note Notes: Patient is a 48 year old male who presented to [facility] ED via EMS with shortness of breath. Medical history includes diabetes, kidney stones, GERD, pneumonia, empyema, hypertension, attention deficit hyperactivity disorder, bipolar, disorder, pneumothorax with chest tube, VATS procedure, chronic pain, former smoker, bipolar disorder. Living situation is unclear. Patient seen in 06/12 for similar symptoms. CM to follow. D/C Plan: Likely independent. Date Signed: 11/20/2018 05:33 PM Electronically Signed By:Marina Holloway
[2018-11-20] MEDS: OXYCODONE/APAP 5/325 TAB PO PRN (19:30)
[2018-11-21] MEDS: guaiFENesin/CODEINE PHOS 10 ML UDCUP PO PRN ×3 (01:54→18:28)
[2018-11-21 05:28] LABS: PLATELET COUNT 250 10^3/uL (150-400)
[2018-11-21] MEDS: IPRATROPIUM/ALBUTEROL 3 ML DEYVIAL IH SCH ×4 (05:30→21:40)
[2018-11-21] MEDS: HEPARIN 5,000 UNIT/0.5 ML INJ SC SCH ×3 (06:17→21:30)
[2018-11-21] MEDS: INSULIN REGULAR HUMAN 100 UNIT/ML UNIT SC SCH ×4 (08:34→21:29)
[2018-11-21] MEDS: MONTELUKAST SODIUM 10 MG TAB PO SCH (08:34)
[2018-11-21] MEDS: predniSONE 20 MG TAB PO SCH (08:34)
[2018-11-21] MEDS: PANTOPRAZOLE SODIUM 40 MG TAB PO SCH (08:34)
[2018-11-21] MEDS: ATORVASTATIN CALCIUM 40 MG TAB PO SCH (08:34)
[2018-11-21] MEDS: INSULIN NPH HUMAN 100 UNITS/ML SYR SC SCH ×2 (08:35→17:58)
[2018-11-21] MEDS: BUDESONIDE 180 MCG MDI IH SCH ×2 (10:27→21:48)
[2018-11-21] MEDS: LORazepam 1 MG TAB PO PRN ×2 (11:19→21:31)
--- NOTE | 2018-11-21 12:54 | HOSPPROG ---
Hospitalist Progress Note Assessment/Plan: 48 year old male with pmh of COPD, empyema with VATS hx, here with COPD exacerbation COPD exacerbation- still desats with any movement although improved from yesterday. He still is not moving very much air on examination but his oxygen requirement is down from 6 liters to 1-2 liters. -change to prednisone 40 qd -nebs -home inhalers restarted -oxygen prn -PRN antitussives HELIO- creatinine peaked at 2.6, likely prerenal azotemia from hypotension and dehydration. Now back down 1.1 with fluids overnight. Hypotension- responded to fluids. Holding home medications including clonidine, losartan, norvasc. Will cont fluids and add back medications PRN. Bipolar D/o - he denies a history of this. not on anything. T1DM - takes high dose of NPH which has been ordered -cont SSI -back off on solumedrol as his sugars are out of control FEN: IVF, Carb Consistent DVT PPx: SubQ Heparin Code: FULL Subjective: still very winded with any ambulation or exertion Objective: Vital Signs Temp Pulse Resp BP Pulse Ox 36.8 C 117 H 20 140/90 H 92 11/21/18 11:26 11/21/18 11:26 11/21/18 11:26 11/21/18 11:26 11/21/18 11:26 Laboratory Results 11/21/18 04:55 11/21/18 04:55 11/20/18 11/21/18 11/22/18 05:59 05:59 05:59 Intake Total 1000 2544 1250 Balance 1000 2544 1250 - Physical Exam Constitutional: no apparent distress, appears nourished, not in pain Eyes: PERRL, anicteric sclera, EOMI Ears, Nose, Mouth, Throat: moist mucous membranes, hearing normal, ears appear normal, no oral mucosal ulcers Cardiovascular: regular rate and rhythym, no murmur, rub, or gallop Respiratory: reduced air movement, expiratory wheeze Gastrointestinal: normoactive bowel sounds, soft, non-tender abdomen, no palpable masses Genitourinary: no bladder fullness, no bladder tenderness, no renal bruits Skin: no rashes or abrasions, no fluctuance, no induration Musculoskeletal: full muscle strength, no muscle tenderness, normal joint ROM Neurologic: AAOx3, sensation intact bilaterally Psychiatric: interacting appropriately, not anxious, not encephalopathic, thought process linear Lymph, Heme, Immunologic: no cervical LAD, no supraclavicular LAD ICD10 Worksheet Patient Problems: Problems Problem Status Onset Chronic obstructive pulmonary disease with acute exacerbation Acute Bipolar affective disorder, current episode depression Active Diabetes mellitus type 2 Active Acute bronchitis Acute Acute kidney injury Acute Anxiety Acute Bronchospasm Acute DKA (diabetic ketoacidoses) Acute Empyema of left pleural space Acute Exacerbation of asthma Acute Exacerbation of asthma Acute Hyperglycemia Acute Hypoxemia Acute Left lower lobe pneumonia Acute MRSA (methicillin resistant Staphylococcus aureus) Acute 10/30/15 Pneumonia Acute Pneumonia Acute Reactive airway disease Acute Shortness of breath Acute
[2018-11-21] MEDS: OXYCODONE/APAP 5/325 TAB PO PRN ×2 (14:02→21:31)
[2018-11-21] MEDS: LOSARTAN POTASSIUM 50 MG TAB PO SCH (16:37)
[2018-11-22] MEDS: IPRATROPIUM/ALBUTEROL 3 ML DEYVIAL IH SCH ×4 (05:19→21:50)
[2018-11-22] MEDS: HEPARIN 5,000 UNIT/0.5 ML INJ SC SCH ×3 (06:27→21:26)
[2018-11-22] MEDS: INSULIN REGULAR HUMAN 100 UNIT/ML UNIT SC SCH ×4 (08:50→21:25)
[2018-11-22] MEDS: predniSONE 20 MG TAB PO SCH (08:55)
[2018-11-22] MEDS: LOSARTAN POTASSIUM 50 MG TAB PO SCH (08:55)
[2018-11-22] MEDS: ATORVASTATIN CALCIUM 40 MG TAB PO SCH (08:55)
[2018-11-22] MEDS: guaiFENesin/CODEINE PHOS 10 ML UDCUP PO PRN ×2 (08:56→15:48)
[2018-11-22] MEDS: PANTOPRAZOLE SODIUM 40 MG TAB PO SCH (08:56)
[2018-11-22] MEDS: MONTELUKAST SODIUM 10 MG TAB PO SCH (08:56)
[2018-11-22] MEDS: INSULIN NPH HUMAN 100 UNITS/ML SYR SC SCH ×2 (08:56→17:01)
--- NOTE | 2018-11-22 09:23 | PDMN ---
Medical Necessity Medical necessity: Change to IP, as of 11/21/18, per MD & MCG M-100; los >2 mn for ongoing management of COPD exacerbation w/persistent dyspnea on exertion; requiring further monitoring & respiratory supportive care; hx diabetes
[2018-11-22] MEDS: BUDESONIDE 180 MCG MDI IH SCH ×2 (10:01→21:50)
--- NOTE | 2018-11-22 12:20 | HOSPPROG ---
Hospitalist Progress Note Assessment/Plan: 48-year-old with a history of COPD and empyema status post VATS is admitted with increasing shortness of breath and hypoxia # acute COPD exacerbation, desaturate with minimal activity and patient feels he is unable to take care of himself at home as he lives alone. * Continue prednisone and nebulizers given wheezing on exam * Trial of Singulair * Resumed inhalers * DC when improved # acute kidney injury likely prerenal azotemia, creatinine improving # type 1 diabetes on NPH and sliding scale insulin * Adjust as needed monitor sugars # DVT prophylaxis on subcu heparin Subjective: Patient new to me and chart reviewed. Complains of ongoing shortness of breath with minimal exertion. Objective: Vital Signs Temp Pulse Resp BP Pulse Ox 36.9 C 103 H 16 167/93 H 90 L 11/22/18 12:10 11/22/18 12:10 11/22/18 12:10 11/22/18 12:10 11/22/18 12:10 - Physical Exam Constitutional: obese Eyes: PERRL Ears, Nose, Mouth, Throat: moist mucous membranes Cardiovascular: regular rate and rhythym Respiratory: reduced air movement, expiratory wheeze, respiratory distress Gastrointestinal: normoactive bowel sounds Genitourinary: no bladder fullness Skin: warm Neurologic: AAOx3, No facial droop Psychiatric: interacting appropriately ICD10 Worksheet Patient Problems: Problems Problem Status Onset Bipolar affective disorder, current episode depression Active Diabetes mellitus type 2 Active Hyperglycemia Acute Left lower lobe pneumonia Acute DKA (diabetic ketoacidoses) Acute Bronchospasm Acute MRSA (methicillin resistant Staphylococcus aureus) Acute 10/30/15 Empyema of left pleural space Acute Pneumonia Acute Pneumonia Acute Hypoxemia Acute Shortness of breath Acute Exacerbation of asthma Acute Acute bronchitis Acute Exacerbation of asthma Acute Reactive airway disease Acute Acute kidney injury Acute Anxiety Acute Chronic obstructive pulmonary disease with acute exacerbation Acute
[2018-11-22] MEDS: OXYCODONE/APAP 5/325 TAB PO PRN (14:27)
[2018-11-22] MEDS: LORazepam 1 MG TAB PO PRN (16:55)
[2018-11-23] MEDS: HEPARIN 5,000 UNIT/0.5 ML INJ SC SCH ×3 (05:27→21:40)
[2018-11-23] MEDS: IPRATROPIUM/ALBUTEROL 3 ML DEYVIAL IH SCH ×4 (05:45→21:45)
[2018-11-23] MEDS: LORazepam 1 MG TAB PO PRN ×2 (06:26→19:17)
[2018-11-23] MEDS: INSULIN REGULAR HUMAN 100 UNIT/ML UNIT SC SCH ×4 (08:59→21:39)
[2018-11-23] MEDS: INSULIN NPH HUMAN 100 UNITS/ML SYR SC SCH ×2 (09:53→17:27)
[2018-11-23] MEDS: predniSONE 20 MG TAB PO SCH (09:53)
[2018-11-23] MEDS: MONTELUKAST SODIUM 10 MG TAB PO SCH (09:53)
[2018-11-23] MEDS: PANTOPRAZOLE SODIUM 40 MG TAB PO SCH (09:53)
[2018-11-23] MEDS: ATORVASTATIN CALCIUM 40 MG TAB PO SCH (09:53)
[2018-11-23] MEDS: LOSARTAN POTASSIUM 50 MG TAB PO SCH (09:53)
[2018-11-23] MEDS: OXYCODONE/APAP 5/325 TAB PO PRN ×2 (09:56→17:27)
[2018-11-23] MEDS: BUDESONIDE 180 MCG MDI IH SCH ×2 (10:03→21:45)
--- NOTE | 2018-11-23 10:26 | HOSPPROG ---
Hospitalist Progress Note Assessment/Plan: 48-year-old with a history of COPD and a remote history of empyema status post VATS is admitted with increasing shortness of breath and hypoxia. He continues to desats quite a bit with exertion, Despite being on oxygen. # acute COPD/asthma exacerbation, desaturate with minimal activity and patient feels he is unable to take care of himself at home as he lives alone. His exam is still notable for poor breath sounds and wheezing throughout. Will check viral panel (not checked on admit), if negative would consider treating with antibiotics for bronchitis since he continues to have significant wheezing on exam. * Continue prednisone and nebulizers given wheezing on exam * Singulair * Resumed inhalers * DC when improved, seems to need another day or 2 * Repeat chest x-ray shows bronchitis * check viral panel, if negative then consider treating with doxycycline for bronchitis. # acute kidney injury likely prerenal azotemia, creatinine improving # type 1 diabetes on NPH and sliding scale insulin * Adjust as needed monitor sugars # DVT prophylaxis on subcu heparin Subjective: Patient continues to complain of shortness of breath especially when he exerts himself. Although he was able to walk around the floor yesterday but desaturated to the 80s despite being on oxygen. Typically he does not use oxygen at home. Objective: Vital Signs Temp Pulse Resp BP Pulse Ox 36.9 C 105 H 16 139/94 H 92 11/23/18 08:12 11/23/18 08:12 11/23/18 08:12 11/23/18 09:53 11/23/18 08:12 11/22/18 11/23/18 11/24/18 05:59 05:59 05:59 Intake Total 600 Balance 600 - Physical Exam Constitutional: obese Eyes: PERRL, anicteric sclera Ears, Nose, Mouth, Throat: moist mucous membranes Cardiovascular: tachycardia Respiratory: reduced air movement, expiratory wheeze, respiratory distress Gastrointestinal: soft, non-tender abdomen Genitourinary: no bladder fullness Skin: normal color Musculoskeletal: no muscle tenderness Neurologic: AAOx3 Psychiatric: interacting appropriately ICD10 Worksheet Patient Problems: Problems Problem Status Onset Chronic obstructive pulmonary disease with acute exacerbation Acute Bipolar affective disorder, current episode depression Active Diabetes mellitus type 2 Active Acute bronchitis Acute Acute kidney injury Acute Anxiety Acute Bronchospasm Acute DKA (diabetic ketoacidoses) Acute Empyema of left pleural space Acute Exacerbation of asthma Acute Exacerbation of asthma Acute Hyperglycemia Acute Hypoxemia Acute Left lower lobe pneumonia Acute MRSA (methicillin resistant Staphylococcus aureus) Acute 10/30/15 Pneumonia Acute Pneumonia Acute Reactive airway disease Acute Shortness of breath Acute
[2018-11-23] MEDS: guaiFENesin/CODEINE PHOS 10 ML UDCUP PO PRN (11:40)
--- NOTE | 2018-11-23 17:05 | ASMTCMCOM ---
CM Note CM Note Notes: Spoke with pt in the room. 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 PT/OT have evaluated him and cleared him for home. Pt has Medicaid and [place] and is agreeable to connecting with [facility]. Brochure given and email sent. Pt is also connected with [facility] and has PCP through [place]. Pt denies need for MoW. Pt likely to discharge independently. Date TBD. CM to follow. D/C Plan: Independent with support from [facility] and [facility] Date Signed: 11/23/2018 05:05 PM Electronically Signed By:Gerri Holliday
[2018-11-24] MEDS: IPRATROPIUM/ALBUTEROL 3 ML DEYVIAL IH SCH ×4 (06:16→21:15)
[2018-11-24] MEDS: HEPARIN 5,000 UNIT/0.5 ML INJ SC SCH ×3 (06:31→20:23)
[2018-11-24] MEDS: LORazepam 1 MG TAB PO PRN (08:26)
[2018-11-24] MEDS: INSULIN REGULAR HUMAN 100 UNIT/ML UNIT SC SCH ×4 (08:33→20:48)
[2018-11-24] MEDS: BUDESONIDE 180 MCG MDI IH SCH ×2 (09:30→21:15)
[2018-11-24] MEDS: LOSARTAN POTASSIUM 50 MG TAB PO SCH (09:35)
[2018-11-24] MEDS: predniSONE 20 MG TAB PO SCH (09:35)
[2018-11-24] MEDS: PANTOPRAZOLE SODIUM 40 MG TAB PO SCH (09:35)
[2018-11-24] MEDS: ATORVASTATIN CALCIUM 40 MG TAB PO SCH (09:35)
[2018-11-24] MEDS: MONTELUKAST SODIUM 10 MG TAB PO SCH (09:35)
[2018-11-24] MEDS: INSULIN NPH HUMAN 100 UNITS/ML SYR SC SCH ×2 (09:51→17:37)
[2018-11-24] MEDS ORDERED: DOXYCYCLINE HYCLATE 100 MG CAP/TAB PO SCH (11:00)
--- NOTE | 2018-11-24 11:09 | HOSPPROG ---
Hospitalist Progress Note Assessment/Plan: # acute on chronic resp failure - appears dyspneic today # acute COPD exacerbation, bronchitis - cont steroids, nebs, singulair - add doxy today (reports tolerating this in the past) # azithromycin allergy - reports recent anaphylaxis # tachycardia - suspect d/t COPD; if does not improve consider CTA # dysphagia - will check video swallow today # DM1 - cont home insulin NPH 50 BID and SSI # htn - restart home clonidine 0.3 TID, cont cozaar # HELIO - resolved # DVT ppx - SQH Subjective: breathing feels short; ambulating; we discussed his brother's recent Objective: Vital Signs Temp Pulse Resp BP Pulse Ox 36.8 C 118 H 18 152/92 H 91 L 11/24/18 07:14 11/24/18 09:30 11/24/18 09:30 11/24/18 07:14 11/24/18 07:14 Microbiology 11/23/18 18:25 Respiratory Panel (PCR) - Final Nasal, Sinus - Swab No Organism Detected By Pcr 11/23/18 11/24/18 11/25/18 05:59 05:59 05:59 Intake Total 600 700 Balance 600 700 chart reviewed CXR personally reviewed - Physical Exam Constitutional: uncomfortable, other (anxious) Cardiovascular: no murmur, rub, or gallop, tachycardia Respiratory: reduced air movement (bilat bases), expiratory wheeze (mild), respiratory distress (mild), No inspiratory crackles Gastrointestinal: soft, non-tender abdomen, no palpable masses, No guarding, No rebound, No distension ICD10 Worksheet Patient Problems: Problems Problem Status Onset Bipolar affective disorder, current episode depression Active Diabetes mellitus type 2 Active Hyperglycemia Acute Left lower lobe pneumonia Acute DKA (diabetic ketoacidoses) Acute Bronchospasm Acute MRSA (methicillin resistant Staphylococcus aureus) Acute 10/30/15 Empyema of left pleural space Acute Pneumonia Acute Pneumonia Acute Hypoxemia Acute Shortness of breath Acute Exacerbation of asthma Acute Acute bronchitis Acute Exacerbation of asthma Acute Reactive airway disease Acute Acute kidney injury Acute Anxiety Acute Chronic obstructive pulmonary disease with acute exacerbation Acute
[2018-11-24] MEDS: guaiFENesin 600 MG TAB.ER PO SCH ×2 (11:59→20:23)
[2018-11-24] MEDS: OXYCODONE/APAP 5/325 TAB PO PRN ×2 (12:00→20:23)
[2018-11-24] MEDS: LORazepam 2 MG/ML INJ IVP PRN (15:41)
[2018-11-24] MEDS: DOXYCYCLINE INJ 100 MG in NS 250 ML IV SCH (20:48)
[2018-11-25] MEDS: IPRATROPIUM/ALBUTEROL 3 ML DEYVIAL IH SCH ×4 (05:22→21:45)
[2018-11-25] MEDS: HEPARIN 5,000 UNIT/0.5 ML INJ SC SCH ×3 (05:44→21:56)
[2018-11-25] MEDS: LORazepam 2 MG/ML INJ IVP PRN ×2 (05:44→15:18)
[2018-11-25] MEDS: ATORVASTATIN CALCIUM 40 MG TAB PO SCH (07:52)
[2018-11-25] MEDS: LOSARTAN POTASSIUM 50 MG TAB PO SCH (07:52)
[2018-11-25] MEDS: OXYCODONE/APAP 5/325 TAB PO PRN ×2 (07:52→19:54)
[2018-11-25] MEDS: MONTELUKAST SODIUM 10 MG TAB PO SCH (07:52)
[2018-11-25] MEDS: INSULIN NPH HUMAN 100 UNITS/ML SYR SC SCH ×2 (07:52→17:15)
[2018-11-25] MEDS: guaiFENesin 600 MG TAB.ER PO SCH ×2 (07:53→21:55)
[2018-11-25] MEDS: predniSONE 20 MG TAB PO SCH (07:53)
[2018-11-25] MEDS: INSULIN REGULAR HUMAN 100 UNIT/ML UNIT SC SCH ×4 (07:54→21:56)
[2018-11-25] MEDS: PANTOPRAZOLE SODIUM 40 MG TAB PO SCH (07:54)
[2018-11-25] MEDS: DOXYCYCLINE INJ 100 MG in NS 250 ML IV SCH ×2 (09:22→21:54)
[2018-11-25] MEDS: BUDESONIDE 180 MCG MDI IH SCH ×2 (10:14→21:45)
--- NOTE | 2018-11-25 12:33 | HOSPPROG ---
Hospitalist Progress Note Assessment/Plan: # acute on chronic resp failure - seems to have improved # acute COPD exacerbation, bronchitis - cont steroids, nebs, singulair - cont doxy and rocephin given his improvement # sensation of throat collapsing - most c/w anxiety given improvement with ativan - will give him a referral to GI and ENT on discharge # azithromycin allergy - reports recent anaphylaxis # tachycardia - improved today # DM1 - cont home insulin NPH 50 BID and SSI # htn - cont home clonidine 0.3 TID, cont cozaar # HELIO - resolved # DVT ppx - SQH Subjective: feels much better today Objective: Vital Signs Temp Pulse Resp BP Pulse Ox 36.9 C 103 H 16 100/70 91 L 11/25/18 11:36 11/25/18 11:36 11/25/18 11:36 11/25/18 11:36 11/25/18 11:36 11/24/18 11/25/18 11/26/18 05:59 05:59 05:59 Intake Total 700 450 Balance 700 450 - Physical Exam Constitutional: no apparent distress, appears nourished Ears, Nose, Mouth, Throat: hearing normal Cardiovascular: regular rate and rhythym, no murmur, rub, or gallop Respiratory: no respiratory distress, no rales or rhonchi, reduced air movement (bilat bases) Gastrointestinal: normoactive bowel sounds, soft, non-tender abdomen, no palpable masses, No guarding, No rebound ICD10 Worksheet Patient Problems: Problems Problem Status Onset Bipolar affective disorder, current episode depression Active Diabetes mellitus type 2 Active Hyperglycemia Acute Left lower lobe pneumonia Acute DKA (diabetic ketoacidoses) Acute Bronchospasm Acute MRSA (methicillin resistant Staphylococcus aureus) Acute 10/30/15 Empyema of left pleural space Acute Pneumonia Acute Pneumonia Acute Hypoxemia Acute Shortness of breath Acute Exacerbation of asthma Acute Acute bronchitis Acute Exacerbation of asthma Acute Reactive airway disease Acute Acute kidney injury Acute Anxiety Acute Chronic obstructive pulmonary disease with acute exacerbation Acute
[2018-11-25] MEDS: guaiFENesin/CODEINE PHOS 10 ML UDCUP PO PRN (17:15)
[2018-11-25] MEDS ORDERED: LORazepam 2 MG/ML INJ IVP ONE (23:17)
[2018-11-26] MEDS: IPRATROPIUM/ALBUTEROL 3 ML DEYVIAL IH SCH ×2 (05:42→11:34)
[2018-11-26] MEDS: HEPARIN 5,000 UNIT/0.5 ML INJ SC SCH (06:45)
[2018-11-26] MEDS: INSULIN REGULAR HUMAN 100 UNIT/ML UNIT SC SCH (08:28)
[2018-11-26] MEDS: INSULIN NPH HUMAN 100 UNITS/ML SYR SC SCH (08:36)
[2018-11-26] MEDS: guaiFENesin 600 MG TAB.ER PO SCH (08:37)
[2018-11-26] MEDS: PANTOPRAZOLE SODIUM 40 MG TAB PO SCH (08:38)
[2018-11-26] MEDS: MONTELUKAST SODIUM 10 MG TAB PO SCH (08:38)
[2018-11-26] MEDS: LOSARTAN POTASSIUM 50 MG TAB PO SCH (08:38)
[2018-11-26] MEDS: predniSONE 20 MG TAB PO SCH (08:38)
[2018-11-26] MEDS: ATORVASTATIN CALCIUM 40 MG TAB PO SCH (08:39)
[2018-11-26] MEDS: OXYCODONE/APAP 5/325 TAB PO PRN (08:58)
[2018-11-26] MEDS: BUDESONIDE 180 MCG MDI IH SCH ×2 (10:20→11:34)
--- NOTE | 2018-11-26 10:32 | GDS ---
[f rep st] DISCHARGE SUMMARY FINAL DIAGNOSES: 1. Acute on chronic respiratory failure. 2. Acute chronic obstructive pulmonary disease exacerbation. 3. Bronchitis. 4. Sensation of throat collapsing. 5. Tachycardia. 6. Diabetes mellitus. 7. Hypertension. 8. Acute kidney injury. HOSPITAL COURSE: This is a 48-year-old man who has a history of MRSA empyema requiring VATS who pres ents with worsening shortness of breath. Imaging did not show any significant consolidation. He ini tially did not improve much with steroids alone and inhalers, antibiotics were added with significant improvement. On the day of discharge he is comfortable on room air, ambulating and does not appear in any respiratory distress. Auscultating his lungs shows that he now has breath sounds all the way down to the bases. I think he is stable for discharge in this regard. I will give him a prescriptio n for doxycycline as well as a short course of steroids. He has requested a refill on his Ativan as well as oxycodone. I will give him a total of 10 Ativan and 15 oxycodone until he can see his primar care physician. He has a sensation of his throat closing. I reviewed bronchoscopy from 2016 which showed normal voca l cords. It does seem that this is better with Ativan thus I feel that there very likely may be an a nxiety component regarding this, though he has apparently been intubated for this in the past. I dwight l give him referral to see Dr. Ornelas with ENT to consider a flexible laryngoscopy. FOLLOWUP: He will follow up with his battery checker in about 2 weeks. DISPOSITION: He is discharged home in stable condition BILLING: I spent more than 30 minutes on the day of discharge coordinating care. /[id number]/MODL
[2018-11-26] MEDS: DOXYCYCLINE INJ 100 MG in NS 250 ML IV SCH (10:54)
[2018-11-26 11:52] VITALS: BP 139/95
== END 2018-11-26 13:04 | disposition home or self-care (01) | DRG 140 ==
LOC: EDUNIT# → INTOOBSV 19:58 → F3E 20:53 → OBSVTOIN 11-21 17:22
PROVIDERS: ADMIT Internal Medicine; ATTEND Internal Medicine
DX: J44.1 Chronic obstructive pulmonary disease with (acute) exacerbation (principal); J96.20 Acute and chronic respiratory failure, unspecified whether with hypoxia or hypercapnia; N17.9 Acute kidney failure, unspecified; E86.9 Volume depletion, unspecified; J40 Bronchitis, not specified as acute or chronic; R00.0 Tachycardia, unspecified; E10.9 Type 1 diabetes mellitus without complications; I10 Essential (primary) hypertension; Z86.14 Personal history of Methicillin resistant Staphylococcus aureus infection; F41.9 Anxiety disorder, unspecified; F90.9 Attention-deficit hyperactivity disorder, unspecified type; F31.9 Bipolar disorder, unspecified; Z87.891 Personal history of nicotine dependence; Z79.4 Long term (current) use of insulin
CPT/HCPCS: 84484-ER; 92611-GN; 96374; 97116-GP; 97162-GP; 97165-GO; 97530-GO; 97535-GO; G0378; J0696; J1170; J1644; J1815; J2060; J2930; J7512; J7613